=== PATIENT | female | born 1970 | race Caucasian/White ===

== ENCOUNTER 2021-06-20 14:30 | Outpatient (REF) | payer OTHER, SELFPAY ==
[2021-06-20 08:20] LABS: Abs Immature Grans 0.03 10^3/uL (0.0-0.06); Absolute Basophil Count 0.02 10^3/uL (0.0-0.2); Absolute Eosinophil Count 0.08 10^3/uL (0.0-0.7); Absolute Lymphocyte Count 2.37 10^3/uL (1.2-3.4); Absolute Neutrophil Count 3.51 10^3/uL (1.2-6.7); Basophils % 0.3; Eosinophils % 1.2; HCT 41.5 % (36.0-46.0); HGB 13.9 g/dL (11.2-15.7); Immature Grans % 0.5; Lymphocytes % 36.4; MCH 29.1 pg (27.0-33.0); MCHC 33.5 % (32.0-36.0); MPV 9.2 fL (8.0-11.0); Monocytes % 7.7; Neutrophils % 53.9; Nucleated RBC 0 %; Platelet Count 297 10^3/uL (130-400); RBC 4.77 10^6/uL (3.93-5.22); RDW 12.5 % (11.7-14.6); RDW-SD 40.1 fL; WBC 6.51 10^3/uL (4.4-10.8)
[2021-06-20 09:19] LABS: Anion Gap 8.3 mmol/L (3-11); BUN 12 mg/dL (7-18); CO2 27.7 mmol/L (21.0-32.0); CREATININE 0.8 mg/dL (0.55-1.02); Calcium 9.3 mg/dL (8.5-10.1); Calculated LDL 152 mg/dL (<100); Chloride 104 mmol/L (98-107); Cholesterol 226 mg/dL (<200); Glucose 101 mg/dL (74-106); HDL Cholesterol 49 mg/dL (40-60); Potassium 4.3 mmol/L (3.5-5.1); Sodium 140 mmol/L (136-145); Triglyceride 127 mg/dL (<150)
== END 2021-06-20 14:31 | disposition home or self-care (01) ==
LOC: LBO 14:30
PROVIDERS: Visit Provider Family Medicine
DX: Z00.00 Encounter for general adult medical examination without abnormal findings (principal); R03.0 Elevated blood-pressure reading, without diagnosis of hypertension; Z13.220 Encounter for screening for lipoid disorders
CPT/HCPCS: 36415; 80048; 80061; 85025

== ENCOUNTER 2021-09-28 08:51 | Outpatient (CLI) | payer OTHER, SELFPAY ==
[2021-09-28 10:20] LABS: BUN 13 mg/dL (7-18); CREATININE 0.8 mg/dL (0.55-1.02); Calcium 9.5 mg/dL (8.5-10.1); Chloride 100 mmol/L (98-107); Glucose 101 mg/dL (74-106); Potassium 3.4 mmol/L (3.5-5.1); Sodium 138 mmol/L (136-145)
== END 2021-09-28 08:52 | disposition home or self-care (01) ==
LOC: LBO 08:53
PROVIDERS: Visit Provider Family Medicine
DX: I10 Essential (primary) hypertension (principal)
CPT/HCPCS: 36415; 80048

== ENCOUNTER 2021-10-16 16:11 | Outpatient (CLI) | payer OTHER, SELFPAY ==
[2021-10-16 14:27] LABS: Potassium 3.3 mmol/L (3.5-5.1)
== END 2021-10-16 16:12 | disposition home or self-care (01) ==
LOC: LBO 16:11
PROVIDERS: Visit Provider Family Medicine
DX: E87.6 Hypokalemia (principal)
CPT/HCPCS: 36415; 84132

== ENCOUNTER 2021-11-01 15:20 | Outpatient (CLI) | payer OTHER, SELFPAY ==
[2021-11-01 11:46] LABS: Potassium 3.9 mmol/L (3.5-5.1)
== END 2021-11-01 15:21 | disposition home or self-care (01) ==
LOC: LBO 15:21
PROVIDERS: Visit Provider Family Medicine
DX: E87.6 Hypokalemia (principal)
CPT/HCPCS: 36415; 84132

== ENCOUNTER 2022-03-21 15:40 | Emergency (ER) | payer OTHER, SELFPAY ==
[2022-03-21 15:50] VITALS: BP 132/88; PULSE 82; RESP 17; TEMP 36.6; O2SAT 97
--- NOTE | 2022-03-22 17:10 | ED.GENADUL_ITS ---
Discharge Plan Disposition Patient Disposition: HOME Condition: Stable Discharge Details Clinical Impression: Abscess Primary Care Provider: Michelle Delacruz ED Provider: Nayely Hernandez Home Meds and New Rx's Prescriptions: Continued chlorthalidone 15 mg Tablet 7.5 mg PO DAILY lamotrigine 100 mg Tablet 100 mg PO BID potassium chloride 2.5 mEq Tablet PO fluoxetine 60 mg Tablet 60 mg PO DAILY Discharge Instructions Instructions: Abscess (ED) Additional Instructions: Warm compresses Ibuprofen and Tylenol as needed for pain Continue on your antibiotic Yogurt daily while on antibiotic Recheck in 48 hours Return earlier should you have new or worsening Discharge Data Discharge Date/Time-TO BE ENTERED AT DEPARTURE: 03/21/22 17:53 Medical Decision Making Incision and drainage performed Irrigated copiously, probed and deloculated Will continue on like Return precautions discussed and patient expressed understanding Medical Records Medical records reviewed: Yes I reviewed the patient's medical records. Lab Data Lab results reviewed: Yes I reviewed the patient's lab results. HPI General Date/Time Provider Initiated Documentation: 03/21/22 16:01 . HPI Narrative: This 51-year-old female presents with report of rash on back which started Saturday. Started on Keflex has become larger despite antibiotics. States is painful. Denies any known tick bite. Denies fever or chills. Denies history of diabetes. Related Data Home Medications Medication Instructions Recorded Confirmed chlorthalidone 15 mg tablet 7.5 mg PO DAILY 03/21/22 03/21/22 fluoxetine 60 mg tablet 60 mg PO DAILY 03/21/22 03/21/22 lamotrigine 100 mg tablet 100 mg PO BID 03/21/22 03/21/22 potassium chloride 2.5 mEq tablet meq PO 03/21/22 Allergies Allergy/AdvReac Type Severity Reaction Status Date / Time No Known Allergies Allergy Unverified 03/21/22 15:53 General Stated Complaint: Cellulitis LAUREN: 5 Review of Systems All systems reviewed & are unremarkable except as noted in HPI and below PFSH All Active Problems (Updated 03/21/22 @ 17:24 by LB Parr) Abscess (Acute) Social History Smoking/Tobacco Use Status: Never Smoking risk assessment performed?: Yes Alcohol Intake: never Drug use: Never Substance use type: does not use Do you feel safe at home: Yes Do you feel safe in your relationship?: Yes Exam Const General: cooperative, comfortable and no acute distress Skin General skin exam: no rashes or lesions noted Full body images: 1. 3 inchx 1 inch region Neuro General: patient alert and patient oriented x3 Course Vital Signs Vital signs: Vital Signs Temperature 36.6 C 03/21/22 15:50 Pulse 82 03/21/22 15:50 Respiratory Rate 17 03/21/22 15:50 Blood Pressure 132/88 03/21/22 15:50 Pulse Oximetry 97 03/21/22 15:50 Temperature 36.6 C 03/21/22 15:50 Temperature Source Temporal Artery Scan 03/21/22 15:50 Pulse 82 03/21/22 15:50 Respiratory Rate 17 03/21/22 15:50 Respiratory Effort Non-Labored 03/21/22 16:41 Blood Pressure 132/88 03/21/22 15:50 Blood Pressure Position Sitting 03/21/22 15:50 Pulse Oximetry 97 03/21/22 15:50 Oxygen Delivery Method Room Air 03/21/22 15:50 Oxygen Flow Rate 0 03/21/22 15:50 Pain Level 0 03/21/22 15:50 Procedures Abscess I/D Site: Back Side (if applicable): Right Local Anesthetic: Lidocaine 1% Amount of anesthesia used (mL): 5 Technique: Needle Aspiration and Incised with #11 Blade Amount of fluid expressed (mL): 5 Irrigation: Yes Packing used?: None Complications: Pain
== END 2022-03-21 17:53 | disposition home or self-care (01) ==
PROVIDERS: Emergency Provider Physician Assistant; PCP Family Medicine
DX: L02.212 Cutaneous abscess of back [any part, except buttock and flank] (principal)
CPT/HCPCS: 10060

== ENCOUNTER 2022-04-28 13:28 | Outpatient (REF) | payer OTHER, SELFPAY ==
--- OUTSIDE RECORDS SUMMARY | 2022-04-28 13:55 | XMS_ITS | Encounter Summary ---
:1970 Author Organization [facility] [place] [address] Care Team Providers Name Role Phone Sania Lebron APRN Primary Care Provider Reason for Visit Reason Comments Specialty Pharmacy Review Encounter Details Date Type Department Care Team Description 06/28/2020 Specialty Pharmacy Pharmacy at [facility] [place] [phone] Social History Tobacco Use Types Packs/Day Years Used Date Never Smoker Smokeless Tobacco: Never Used Sex Assigned at Date Recorded Not on file documented as of this encounter Plan of Treatment Not on filedocumented as of this encounter Visit Diagnoses Not on filedocumented in this encounter Care Teams Rink Rat Relationship Specialty Start Date End Date Sania Lebron APRN PCP - General 12/08/12 07/19/21 [address] [place] [address] documented as of this encounter
--- OUTSIDE RECORDS SUMMARY | 2022-04-28 13:55 | XMS_ITS | Encounter Summary ---
:1970 Author Organization [facility] [place] [address] Care Team Providers Name Role Phone Sania Lebron APRN Primary Care Provider Reason for Visit Reason Onset Date Comments Medication Refill 09/27/2020 Encounter Details Date Type Department Care Team Description 09/27/2020 Refill Allergy at [facility] [place] Raegan Bailey, Urticarial vasculitis [facility] [place] [address] [facility] [phone] ALLERGY DEPT [place], [place] [address] (Wo rk) Social History Tobacco Use Types Packs/Day Years Used Date Never Smoker Smokeless Tobacco: Never Used Sex Assigned at Date Recorded Not on file documented as of this encounter Miscellaneous Notes Telephone Encounter - José Manuel Chapa RN - 09/27/2020 8:35 AM EST Patient last prescription 06/05, with 3 refills in need of new prescription documented in this encounter Plan of Treatment Not on filedocumented as of this encounter Visit Diagnoses Diagnosis Urticarial vasculitis Hypersensitivity angiitis, unspecified documented in this encounter Care Teams Talent Sourcing Specialist Relationship Specialty Start Date End Date Foristell, Sania, SMALL PIECE CUTTER PCP - General 12/08/12 07/19/21 [address] [place], [place] [id number] documented as of this encounter
--- OUTSIDE RECORDS SUMMARY | 2022-04-28 13:55 | XMS_ITS | Encounter Summary ---
:1970 Author Organization [facility] [place] [address] Care Team Providers Name Role Phone Sania Lebron APRN Primary Care Provider Reason for Visit Reason Comments Specialty Pharmacy Review Encounter Details Date Type Department Care Team Description 08/02/2020 Specialty Pharmacy Pharmacy at [facility] [place] [phone] Social History Tobacco Use Types Packs/Day Years Used Date Never Smoker Smokeless Tobacco: Never Used Sex Assigned at Date Recorded Not on file documented as of this encounter Plan of Treatment Not on filedocumented as of this encounter Visit Diagnoses Not on filedocumented in this encounter Care Teams Edge Plugger Relationship Specialty Start Date End Date Sania Lebron APRN PCP - General 12/08/12 07/19/21 [address] [place] [address] documented as of this encounter
--- OUTSIDE RECORDS SUMMARY | 2022-04-28 13:55 | XMS_ITS | Encounter Summary ---
:1970 Author Organization [facility] [place] [address] Care Team Providers Name Role Phone Sania Lebron APRN Primary Care Provider Encounter Details Date Type Department Care Team Description 08/25/2020 Specialty Pharmacy Pharmacy at [facility] Marva Simpson, [facility] [place] [address] Social History Tobacco Use Types Packs/Day Years Used Date Never Smoker Smokeless Tobacco: Never Used Sex Assigned at Date Recorded Not on file documented as of this encounter Progress Notes Marva Feliz RPH - 08/25/2020 2:[address] Mariaelena Bailey, patient's hives are well-controlled on current therapies and patient does not wish to pursue Xolair at this time. Encounter to remove from medication list. Marva Feliz RPH 08/25/2020 2:10 PM documented in this encounter Plan of Treatment Not on filedocumented as of this encounter Visit Diagnoses Not on filedocumented in this encounter Care Teams Truck Mechanic Apprentice Relationship Specialty Start Date End Date Sania Lebron APRN PCP - General 12/08/12 07/19/21 [address] [place] [address] documented as of this encounter
--- OUTSIDE RECORDS SUMMARY | 2022-04-28 13:55 | XMS_ITS | Encounter Summary ---
:1970 Author Organization [facility] [place] [address] Care Team Providers Name Role Phone Sania Lebron APRN Primary Care Provider Encounter Details Date Type Department Care Team Description 07/13/2020 Hospital Encounter Mammography at [facility] Jef Lebron of left breast [facility] [address] [place] [address] [phone] Social History Tobacco Use Types Packs/Day Years Used Date Never Smoker Smokeless Tobacco: Never Used Sex Assigned at Date Recorded Not on file documented as of this encounter Medications at Time of Discharge Medication Sig Dispensed Refills Start Date End Date hydrOXYzine (Atarax) 10 Take 1 tablet by 30 tablet 2 2019 mg TabletIndications: mouth 3 times daily Chronic idiopathic as needed for urticaria Itching. hydrOXYzine (Atarax) 10 Take 10 mg by mouth 0 mg Tablet every 6 hours as needed for Itching. clonazePAM (KLONOPIN) Take 0.5 mg by mouth 0 0.5 mg Tablet 2 times daily as needed for Anxiety. ethinyl Take by mouth. 0 estradiol/drospirenone (OCELLA ORAL) omalizumab (Xolair) Inject 2 mLs 2 Syringe 5 06/30/202006/2020 (150 mg/mL) subcutaneously every SyringeIndications: 28 days. Chronic idiopathic urticaria FLUoxetine 60 mg Tablet TAKE ONE TABLET BY 0 03/1612/01/2020 MOUTH EVERY DAY triamcinolone (KENALOG) APPLY TO AFFECTED 0 12/2212/01/2020 0.1 % Ointment AREA S NEEDED TWO TIMES A DAY FOR 14 DAYS colchicine (Colcrys) Take 1 tablet by 60 tablet 3 0 09/27/2020 0.6 mg mouth 2 times daily. TabletIndications: Urticarial vasculitis doxepin (Sinequan) 10 Take 1 capsule by 30 capsule 0 020 12/01/2020 mg Capsule mouth nightly. levocetirizine (XYZAL) Take by mouth. 0 12/01/2020 5 mg Tablet famotidine (Pepcid) 20 Take 1 tablet by 30 tablet 12 020 12/01/2020 mg TabletIndications: mouth 2 times daily. Chronic idiopathic urticaria montelukast (Singulair) Take 1 tablet by 30 tablet 12 201912/01/2020 10 mg mouth nightly. TabletIndications: Chronic idiopathic urticaria, Angioedema, subsequent encounter diphenhydrAMINE Take 25 mg by mouth 0 12/01/2020 (Benadryl) 25 mg every 6 hours as Capsule needed for Itching. FLUoxetine (PROZAC) 40 Take 60 mg by mouth 0 12/01/2020 mg Capsule daily. documented as of this encounter Plan of Treatment Not on filedocumented as of this encounter Procedures Procedure Name Priority Date/Time Associated Diagnosis Comme nts MAMMO BREAST US Routine 07/13/2020 3:10 PM Mass of left breast Results for this LIMITED LEFT EDT procedure are i n the results section. documented in this encounter Results US Breast Limited Left (07/13/2020 3:10 PM EDT) Anatomical Region Laterality Modality Breast Left Mammography Specimen (Source) Anatomical Location Collection Method / Collectio n Time Received Time / Laterality Volume Impressions 07/13/2020 6:00 PM EDT Hyperechoic region on the left breast deep to the inflamed dermal lesion, consistent with infectious/inflammatory breast tissue. No fluid collection. RECOMMENDATION: Clinical follow-up as ne eded. Annual screening mammogram. BI-RADS Category 2: Benign Findings * ??Regular screening mammograms startin g between age 40 and 50 reduces the risk of from breast cancer. * ??All screening tests have both risks and benefits. These risks and benefits should be assessed for each individual p atient through discussion with their provider to determine their preferred br east cancer screening schedule. * ??Women should report any breast norman es to a health care provider right away. * ??Some women, because of their family history, a genetic tendency, or other factors, should be screened with annual breast MRI as well as with mammograms. (The number of women who fall into this category is very small). Patients and health care providers should discuss the history of each patient to decide if earlier screening and/or breast MRI are appropriate. * ??Screening should continue as long as a woman is in good health and is expected to live 10 years or longer. * ??Screening mammography may not detect 10-15% of breast cancers. I have personally reviewed the image(s) and the resident's interpretation and agree with the findings, Rena valadez MD at 07/13/2020 6:00 PM Thank you for letting us participate in the care of this patient. For questions regarding this report, please contact e number below. ? Narrative 07/13/2020 6:00 PM EDT DIAGNOSTIC MAMMOGRAPHY AND ULTRASOUND OF THE LEFT BREAST CLINICAL HISTORY: 49-year-old female wit h a left breast lump. TECHNIQUE AND VIEWS OBTAINED: 2D digitally acquired spot CC, CC, and M LO views were obtained of left breast. 3D tomosynthesis images were obtained in addition to 2D images. Computer Assisted Detection was used. COMPARISONS: Mammogram dated 05/13/2020 FINDINGS MAMMOGRAPHY: There is a partially imaged indistinct 0 .8 cm high density mass at 8:00, 11 cm from the nipple. FINDINGS ULTRASOUND: A targeted high-resolution ultrasound of the left breast was obtained. There is an elongated oval hyperechoic parallel m ass with indistinct margins with a thin duct at the most medial aspect which is continuous with the inflamed dermal lesion. The mass measures approximately 4.0 x 2.2 cm. This palpable lesion corresponds to the mammographic finding. Sania Lebron APRN IMG MAMMO ORDERABLES documented in this encounter Visit Diagnoses Diagnosis Mass of left breast Lump or mass in breast documented in this encounter Care Teams Dross Skimmer Relationship Specialty Start Date End Date Sania Lebron APRN PCP - General 12/08/12 07/19/21 [address] [place] [address] documented as of this encounter
--- OUTSIDE RECORDS SUMMARY | 2022-04-28 13:55 | XMS_ITS | Encounter Summary ---
:1970 Author Organization [facility] [place] [address] Care Team Providers Name Role Phone Sania Lebron APRN Primary Care Provider Reason for Visit Reason Comments Follow-up Encounter Details Date Type Department Care Team Description 12/01/2020 Office Visit [place] [facility] Raegan Santamaria Urticarial vasculitis (Prima ry Dx); [facility] MD Agus Encounter [place] [address] ALLERGY DEPT [phone] [place], [place] [address] Social History Tobacco Use Types Packs/Day Years Used Date Never Smoker Smokeless Tobacco: Never Used Sex Assigned at Date Recorded Not on file documented as of this encounter Last Filed Vital Signs Vital Sign Reading Time Taken Comments Blood Pressure 150/89 12/01/2020 9:18 AM EDT Pulse 63 12/01/2020 9:18 AM EDT Temperature - - Respiratory Rate - - Oxygen Saturation 99% 12/01/2020 9:18 AM EDT Inhaled Oxygen Concentration - - Weight - - Height - - Body Mass Index - - documented in this encounter Progress Notes Raegan Santamaria MD - 12/01/2020 9:30 AM EDT Images from the original note were not included. [facility] Section of Allergy and Clinical Immunology Date of Service: 12/01/20 Primary Care Provider: Sania Lebron APRN Patient Age: 50 y.o. 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 She is doing well on colchicine 0.6 mg twice daily. Since her last visit, she has successfully tapered off levocetirizine and famotidine. She feels more clear off antihistamines. She denies any nausea or diarrhea. She reports as long as she takes colchicine with food, she does not have GI symptoms. Prior hepatic panel has been within normal. She stopped montelukast due to elevated triglyceride levels. She is no longer interested in starting omalizumab. She received her first Moderna vaccine on September 21 and only had a sore arm. After her 2nd Moderna vaccine on October 21, she developed knee pain, low-grade fever about 12 hours after injection and thesymptoms resolved on their own by the next day. Outpatient Medications Marked as Taking for the 12/01/20 encounter (Office Visit) with Raegan Santamaria MD Medication Sig Dispense Refill ??? lamoTRIgine (LaMICtal) 25 mg Tablet TAKE ONE TABLET BY MOUTH EVERY MORNING AND TWO TABLETS AT BEDTIME ??? FLUoxetine (PROzac) 40 mg Capsule Take 40 mg by mouth 2 times daily (after meals). ??? colchicine (Colcrys) 0.6 mg Tablet Take 1 tablet by mouth 2 times daily. 60 tablet 3 ??? clonazePAM (KLONOPIN) 0.5 mg Tablet Take 0.5 mg by mouth 2 times daily as needed for Anxiety. ??? ethinyl estradiol/drospirenone (OCELLA ORAL) Take by mouth. Allergies Allergen Reactions ??? Perphenazine CIS - breathing difficulty Family History Problem Relation Age of Onset ??? Breast Cancer Mother Her sister has anaphylaxis due to bee stings. Social History Tobacco Use ??? Smoking status: Never Smoker ??? Smokeless tobacco: Never Used Substance Use Topics ??? Alcohol use: Not on file ??? Drug use: Not on file Status: Environmental History: 2 dogs +Pellet stove How water baseboard heat +chickens Objective: BP 150/89 Pulse 63 SpO2 99% No flowsheet data found. Wt Readings from Last 3 Encounters: 08/22/20 90.7 kg (200 lb) 06/28/20 90.7 kg (199 lb 15.3 oz) 06/09/20 90.7 kg (200 lb) Normal Except General: - No apparent distress Eyes: - Conjunctivae without injection; - No eyelid swelling ENT: - No erythema of the tympanic membranes - Normal external ear canals - Oropharynx well hydrated without lesions or exudates; Neck: - Symmetrical, no masses, trachea midline; Resp: - Unlabored breathing with symmetrical and equal bilateral expansion; - CTA w/o crackles, wheezing, or rhonchi; CV: - Regular rate and rhythm - No pedal swelling GI: - Abdomen soft - Bowel sounds present Lymph: - No significant cervical, supraclavicular or infraclavicular lymphadenopathy Musculoskeletal: - Nl gait and station Extremities: - No clubbing, cyanosis, or edema Skin: No urticaria or angioedema Neuro: - Nl gait and station Psych: - Nl and age appropriate mood and affect - Judgement and insight intact Skin biopsy result in March 2020: This biopsy includes skin with epidermis and dermis. Direct IF studies of this skin biopsy specimen reveal subtle superficial perivascular immunoreactivity of C3, fibrinogen and the immunoglobulins tested, distinct from the immunoreactivity seen in the negative control slide from the same preparation. DIAGNOSIS A - Left leg, skin punch biopsy: - Superficial perivascular inflammation with neutrophils, eosinophils, extravasated erythrocytes and rare focal karyorrhectic debris, suspicious for urticarial vasculitis (see discussion) B - Left leg, skin punch biopsy: - Subtle superficial perivascular immunoreactivity (see discussion and addendum for details) Electronically signed by: Nathaniel Villasenor MD Verified: 03/28/2020 Dermatopathologist Performed at: -[facility] Dept. [place]ology, [place], [place] DISCUSSION A, B - Overall, the findings are somewhat subtle, but do cause suspicion for a subtle or early case of urticarial vasculitis. The findings are not at all those of a developed leukocytoclastic vasculitis (LCV). But, regarding urticarial vasculitis compared with typical LCV, the histological findings tend to be subtle and are easily overlooked Labs: Component Latest Ref Rng & Units 03/23/2020 C4 Complement 10 - 40 mg/dL 32 C3 Complement 90 - 180 mg/dL 161 Complement C1q 12 - 22 mg/dL 20 CHERYLE Neg Neg CRP <=4.9 mg/L 7.4 (H) Sed Rate 2 - 37 mm/hr 17 Component Latest Ref Rng & Units 08/22/2020 06/28/2020 Total Protein 6.1 - 8.0 gm/dL 6.7 6.6 Albumin 3.2 - 5.2 gm/dL 4.3 4.1 AST 0 - 30 unit/L 9 16 ALT 0 - 30 unit/L 10 11 Alk Phos 35 - 105 unit/L 67 59 Total Bilirubin 0.2 - 1.3 mg/dL 0.2 Not Perf Bili, Direct 0.0 - 0.3 mg/dL 0.1 Not Perf Assessment and Plan: 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 Sheis doing well on colchicine 0.6 mg twice daily. I recommend she continue colchicine 0.6 mg twice daily at this time. If hives return, she will let me know. In future, if she is doing well, consider tapering to once a day. She has normal baseline AST/ALT. Plan to recheck hepatic panel today. All questions were answered, and patient expressed understanding of the plan. If I can provide any further assistance, please do not hesitate to contact me. Return for follow-up appointment in 3 months, sooner if needed. Raegan Bailey MD [employer], Allergy [place] [address] [email or web address] Addendum: hepatic panel within normal. Component Latest Ref Rng & Units 12/01/2020 Total Protein 6.1 - 8.0 gm/dL 7.0 Albumin 3.2 - 5.2 gm/dL 4.4 AST 0 - 30 unit/L 18 ALT 0 - 30 unit/L 17 Alk Phos 35 - 105 unit/L 59 Total Bilirubin 0.2 - 1.3 mg/dL 0.3 Bili, Direct 0.0 - 0.3 mg/dL 0.1 documented in this encounter Plan of Treatment Not on filedocumented as of this encounter Procedures Procedure Name Priority Date/Time Associated Diagnosis Comme nts HC VENIPUNCTURE Routine 12/01/2020 10:15 AM Encounter for Resu lts for this EDT medication monit oring procedure are in Urticarial vasculitis the re sults section. documented in this encounter Results Hepatic Function Panel (12/01/2020 10:15 AM EDT) P athologist Signature Total Protein 7.0 6.1 - 8.0 [place] [facility] gm/dL [facility] Albumin 4.4 3.2 - 5.2 [place] gm/dL [facility] AST 18 0 - 30 [facility] unit/L [facility] ALT 17 0 - 30 [facility] unit/L [facility] Alk Phos 59 35 - 105 [facility]L [facility] Total 0.3 0.2 - 1.3 [place] Bilirubin mg/dL [facility] Bili, Direct 0.1 0.0 - 0.3 [facility] mg/dL [facility] Specimen Anatomical Collection Method Collection Time Receive d Time (Source) Location / / Volume Laterality Blood specimen 12/01/2020 10:15 1 (specimen) AM EDT 10:31 AM EDT Resulting Agency Comment Spec In Lab Raegan Bailey MD CHEMISTRY ORDERABLES Performing Organization Address City/State/[place] [address] documented in this encounter Visit Diagnoses Diagnosis Urticarial vasculitis - Primary Hypersensitivity angiitis, unspecified Encounter for medication monitoring Encounter for therapeutic drug monitorin g documented in this encounter Care Teams Rail Car Repair Carman Relationship Specialty Start Date End Date Sania Lebron APRN PCP - General 12/08/12 07/19/21 [address] [place] [address] documented as of this encounter
--- OUTSIDE RECORDS SUMMARY | 2022-04-28 13:55 | XMS_ITS | Encounter Summary ---
:1970 Author Organization [facility] [address] Care Team Providers Name Role Phone Sania Lebron APRN Primary Care Provider Encounter Details Date Type Department Care Team Description 07/06/2020 Notes Only Allergy at [facility] [place] [address] Social History Tobacco Use Types Packs/Day Years Used Date Never Smoker Smokeless Tobacco: Never Used Sex Assigned at Date Recorded Not on file documented as of this encounter Progress Notes Wanda Grimadlo RN - 07/06/2020 4:53 PM EDT Patient called to inquire about Xolair PA status. Ryan Grubbs from Specialty Pharmacy, they need to obtain an Urticaria Activity Score (UAS) from Dr. Bailey before proceeding with PA. documented in this encounter Plan of Treatment Not on filedocumented as of this encounter Visit Diagnoses Not on filedocumented in this encounter Care Teams Envelope Maker Relationship Specialty Start Date End Date Sania Lebron APRN PCP - General 12/08/12 07/19/21 [address] [place] [address] documented as of this encounter
--- OUTSIDE RECORDS SUMMARY | 2022-04-28 13:55 | XMS_ITS | Encounter Summary ---
:1970 Author Organization [facility] [place] [address] Care Team Providers Name Role Phone Michelle Espinoza MD Primary Care Provider Reason for Referral Diagnostic Test (Routine) - Closed Specialty Diagnoses / Procedures Referred By Contact Refer red To Contact Radiology Diagnoses Encounter for screening mammogram for breast cancer Michelle Espinoza MD [facility] Rad Mammography Procedures Mammo Screening Cad and Artur Bilateral [address] [place] [address] [place] [address] Phone: Referral ID Status Reason Start Date Expiration Date Visits V isits Requested Authorized [id number] Closed Specialty 05/11/2021 11/11/2022 1 1 Service Requested Reason for Visit Diagnostic Test (Routine) - Closed Specialty Diagnoses / Procedures Referred By Contact Refer red To Contact Radiology Diagnoses Encounter for screening mammogram for breast cancer Michelle Espinoza MD [facility] Rad Mammography Procedures Mammo Screening Cad and Artur Bilateral [address] [place] [id number] [place] [address] Phone: Referral ID Status Reason Start Date Expiration Date Visits V isits Requested Authorized [id number] Closed Specialty 05/11/2021 11/11/2022 1 1 Service Requested Encounter Details Date Type Department Care Team Description 07/20/2021 Hospital Encounter Mammography/DXA at Michelle Espinoza, Encounter for [facility] MD screening mammogram [address] cancer [address] [address] [phone] Social History Tobacco Use Types Packs/Day Years Used Date Never Smoker Smokeless Tobacco: Never Used Sex Assigned at Date Recorded Not on file documented as of this encounter Medications at Time of Discharge Medication Sig Dispensed Refills Start Date End Date colchicine (Colcrys) 0.6 Take 1 tablet by 60 tablet 3 02/06 mg TabletIndications: mouth 2 times daily. Urticarial vasculitis lamoTRIgine (LaMICtal) 25 TAKE ONE TABLET BY 0 mg Tablet MOUTH EVERY MORNING AND TWO TABLETS AT BEDTIME FLUoxetine (PROzac) 40 mg Take 40 mg by mouth 2 0 Capsule times daily (after meals). hydrOXYzine (Atarax) 10 mg Take 1 tablet by 30 tablet 2 TabletIndications: Chronic mouth 3 times daily idiopathic urticaria as needed for Itching. hydrOXYzine (Atarax) 10 mg Take 10 mg by mouth 0 Tablet every 6 hours as needed for Itching. clonazePAM (KLONOPIN) 0.5 Take 0.5 mg by mouth 0 mg Tablet 2 times daily as needed for Anxiety. ethinyl Take by mouth. 0 estradiol/drospirenone (OCELLA ORAL) documented as of this encounter Plan of Treatment Not on filedocumented as of this encounter Procedures Procedure Name Priority Date/Time Associated Diagnosis Comme nts MAMMO SCREENING CAD Routine 07/20/2021 9:31 AM Encounter for R esults for this AND ARTUR BILATERAL EDT screening mammogram pr ocedure are in for breast cancer the result s section. documented in this encounter Results Mammo Screening Cad and Artur Bilateral (07/20/2021 9:31 AM EDT) Anatomical Region Laterality Modality Breast Bilateral Mammography Specimen (Source) Anatomical Location Collection Method / Collectio n Time Received Time / Laterality Volume Narrative 07/20/2021 11:29 AM EDT BILATERAL MAMMOGRAPHY REASON FOR EXAM: Screening TECHNIQUE: CC and MLO views were obtaine d of each breast using standard 2-D mammography as well as 3-D tomosynth esis. Computer aided detection was used. This is compared with prior images . FINDINGS: There are scattered areas of f ibroglandular density. There are no suspicious microcalcifications, jean s, or areas of distortion. The pattern is stable. CONCLUSION: No mammographic evidence of malignancy. RECOMMENDATION: Regular screening mammograms starting be tween age 40 and 50 reduces the risk of from breast cancer. All screening tests have both risks and benefits. These risks and benefits should be assessed for each individual p atient through discussion with their provider to determine their prefer red breast cancer screening schedule. Women should report any breast changes t o a health care provider right away. Some women, because of their family hist ory, a genetic tendency, or other factors, should be screened with annual breast MRI as well as with mammograms. (The number of women who fal l into this category is very small). Patients and health care provide rs should discuss each patient? s history to decide if earlier screening a nd/or breast MRI are appropriate. Screening should continue as long as a w lenin is in good health and is expected to live 10 years or longer. Screening mammography may not detect 10- 15% of breast cancers. A result letter has been sent to this pa [facility]renice [facility]. BIRADS CATEGORY 1: NEGATIVE Electronically signed by: TOMAS PHILIP MD Michelle Espinoza MD IMG MAMMO ORDERABLES documented in this encounter Visit Diagnoses Diagnosis Encounter for screening mammogram for br east cancer documented in this encounter Care Teams First Cook Relationship Specialty Start Date End Date Michelle Espinoza MD PCP - General Family Medicine 07/20/[address] [place] [address] documented as of this encounter
--- OUTSIDE RECORDS SUMMARY | 2022-04-28 13:55 | XMS_ITS | Encounter Summary ---
:1970 Author Organization [facility] [place] [address] Care Team Providers Name Role Phone Sania Lebron APRN Primary Care Provider Encounter Details Date Type Department Care Team Description 07/13/2020 Hospital Encounter Mammography at [facility] Jef Lebron of left breast [facility] [address] [place] [address] [phone] Social History Tobacco Use Types Packs/Day Years [...] encounter Procedures Procedure Name Priority Date/Time Associated Comments Diagnosis MAMMO DIAGNOSTIC CAD Routine 07/13/2020 3:00 PM Mass of left b reast Results for this AND ARTUR LEFT EDT procedure are in the results section. documented in this encounter Results Mammo Diagnostic Cad and Artur Left (07/13/2020 3:00 PM EDT) Anatomical Region Laterality Modality Breast [...] report, please contact e number below. ? Electronically signed by: Rena franz MD, [facility] ([phone]), at 07/13/2020 6:00 PM Narrative 07/13/2020 6:00 PM EDT DIAGNOSTIC MAMMOGRAPHY [...] breast documented in this encounter Care Teams Gluing Machine Operator Automatic Relationship Specialty Start Date End Date Sania Lerbon APRN PCP - General 12/08/12 07/19/21 [address] [place] [address] documented as of this encounter
--- OUTSIDE RECORDS SUMMARY | 2022-04-28 13:55 | XMS_ITS | Encounter Summary ---
:1970 Author Organization [facility] [address] Care Team Providers Name Role Phone Sania Lebron APRN Primary Care Provider Encounter Details Date Type Department Care Team Description 08/22/2020 Laboratory Appointment Lab 3L [facility] Medication monitoring encounter; [facility] [place] [address] Social History Tobacco Use Types Packs/Day Years Used Date Never Smoker Smokeless Tobacco: Never Used Sex Assigned at Date Recorded Not on file documented as of this encounter Plan of Treatment Not on filedocumented as of this encounter Procedures Procedure Name Priority Date/Time Associated Diagnosis Comme nts HC VENIPUNCTURE Routine 08/22/2020 3:47 PM Medication monitori ng Results for this EST encounter procedure are in Urticarial vasculitis the re sults section. documented in this encounter Results Hepatic Function Panel (08/22/2020 3:47 PM EST) P athologist Signature Total Protein 6.7 6.1 - 8.0 Associated ContentDEBORAH gm/dL [facility] Albumin 4.3 3.2 - 5.2 Associated ContentDEBORAH gm/dL [facility] AST 9 0 - 30 [place] unit/L [facility] ALT 10 0 - 30 [place] unit/L [facility] Alk Phos 67 35 - 105 [employer] unit/L [facility] Total 0.2 0.2 - 1.3 [facility] Bilirubin mg/dL [facility] Bili, Direct 0.1 0.0 - 0.3 [facility] mg/dL [facility] Specimen Anatomical Collection Method Collection Time Receive d Time (Source) Location / / Volume Laterality Blood specimen 08/22/2020 3:47 PM 020 3:58 (specimen) EST PM EST Resulting Agency Comment Spec In Lab Raegan Bailey MD CHEMISTRY ORDERABLES Performing Organization Address City/State/[place] [address] documented in this encounter Visit Diagnoses Diagnosis Medication monitoring encounter Encounter for therapeutic drug monitorin g Urticarial vasculitis Hypersensitivity angiitis, unspecified documented in this encounter Care Teams Chain Pegger Relationship Specialty Start Date End Date Sania Lebron APRN PCP - General 12/08/12 07/19/21 [address] [place] [address] documented as of this encounter
--- OUTSIDE RECORDS SUMMARY | 2022-04-28 13:55 | XMS_ITS | Encounter Summary ---
:1970 Author Organization [facility] [place] [address] Care Team Providers Name Role Phone Vi, Sania BARRAGAN Primary Care Provider Reason for Visit Reason Onset Date Comments Medication Refill 02/05/2021 Encounter Details Date Type Department Care Team Description 02/05/2021 Refill Allergy at [facility] [place] Raegan Bailey, Urticarial vasculitis [facility] [place] [address] [facility] [phone] ALLERGY DEPT [place], [place] [address] (Wo rk) Social History Tobacco Use Types Packs/Day Years Used Date Never Smoker Smokeless Tobacco: Never Used Sex Assigned at Date Recorded Not on file documented as of this encounter Miscellaneous Notes Telephone Encounter - Mary Mckinley RN - 02/06/2021 3:34 PM EDT Request for: Requested Prescriptions Pending Prescriptions Disp Refills ??? colchicine (Colcrys) 0.6 mg Tablet 60 tablet 3 Sig: Take 1 tablet by mouth 2 times daily. Last visit: 12/01/20 Next visit: No future appointments. documented in this encounter Plan of Treatment Not on filedocumented as of this encounter Visit Diagnoses Diagnosis Urticarial vasculitis Hypersensitivity angiitis, unspecified documented in this encounter Care Teams Cloth Shearing Supervisor Relationship Specialty Start Date End Date Sania Lebron APRN PCP - General 12/08/12 07/19/21 [address] [place] [address] documented as of this encounter
--- OUTSIDE RECORDS SUMMARY | 2022-04-28 13:55 | XMS_ITS | Clinical Summary ---
:1970 Author Organization [facility] [place] [address] Care Team Providers Name Role Phone Michelle Espinoza MD Primary Care Provider Allergies Active Allergy Reactions Severity Noted Date Comments Perphenazine CIS - breathing difficulty Medications Medication Sig Dispensed Refills Start Date End Date Status clonazePAM (KLONOPIN) Take 0.5 mg by 0 Active 0.5 mg Tablet mouth 2 times daily as needed for Anxiety. ethinyl Take by mouth. 0 Activ e estradiol/drospirenone (OCELLA ORAL) hydrOXYzine (Atarax) 10 Take 10 mg by 0 Active mg Tablet mouth every 6 hours as needed for Itching. hydrOXYzine (Atarax) 10 Take 1 tablet by 30 tablet 2 0 Active mg TabletIndications: mouth 3 times Chronic idiopathic daily as needed urticaria for Itching. Additional Information Patient not taking. Reported on 12/01/2020 lamoTRIgine (LaMICtal) 25 mg TAKE ONE TABLET BY MOUTH 0 11/06/2020 Active Tablet EVERY MORNING AND TWO TABLETS AT BEDTIME FLUoxetine (PROzac) 40 mg Take 40 mg by mouth 2 0 Active Capsule times daily (after meals). colchicine (Colcrys) 0.6 mg Take 1 tablet by mouth 2 60 tablet 3 02/06/2021 Active TabletIndications: Urticarial times daily. vasculitis Immunizations Name Administration Dates Next Due Influenza PF, Split 06/15/2012 Influenza Vaccine, Whole 06/25/2010 Family History Medical History Relation Comments Breast Cancer Mother Relation Status Comments Mother Social History Tobacco Use Types Packs/Day Years Used Date Never Smoker Smokeless Tobacco: Never Used Sex Assigned at Date Recorded Not on file Last Filed Vital Signs Vital Sign Reading Time Taken Comments Blood Pressure 150/89 12/01/2020 9:18 AM EDT Pulse 63 12/01/2020 9:18 AM EDT Temperature 37.1 ??C (98.8 ??F) 06/10/2019 9:56 AM EDT Respiratory Rate 16 06/10/2019 9:56 AM EDT Oxygen Saturation 99% 12/01/2020 9:18 AM EDT Inhaled Oxygen Concentration - - Weight 90.7 kg (200 lb) 08/22/2020 3:09 PM EST Height 165.1 cm (5' 5) 03/10/2020 2:30 PM EDT Body Mass Index 33.28 03/10/2020 2:30 PM EDT Plan of Treatment Health Maintenance Due Date Last Done Comments HIV screen 1990 Hepatitis C Screening 1990 Lipid Screening 1990 Tdap adult 11/21/1991 Tetanus vaccine 11/21/1991 Breast Cancer Share Decision Needed 2012 HPV test 11/14/2016 11/15/2011 PAP Smear 11/14/2016 11/15/2011 Colonoscopy 2017 Covid-19 Vaccine (3 - Booster for Moderna 03/18/20212020, 09/21/2020 series) Influenza (Flu) vaccine (1 of 1 - 05/17/2022 06/15/2012, Influenza standard series) Diabetes Screening (HgbA1C or Glucose) 03/23/2023 0 Insurance Payer Benefit Plan / Subscriber ID Effective Dates Phone Addre ss Type Group HEALTH PLANS HEALTH PLANS [id number] 2021-Mitra [phone] [id number] [place] [address] Care Teams Ibm Mainframe Systems Programmer Relationship Specialty Start Date End Date Hansel-Michelle Yang MD PCP - General Family Medicine 07/20/[address] [address]
--- OUTSIDE RECORDS SUMMARY | 2022-04-28 13:55 | XMS_ITS | Encounter Summary ---
:1970 Author Organization [facility] [place] [address] Care Team Providers Name Role Phone Sania Lebron APRN Primary Care Provider Encounter Details Date Type Department Care Team Description 08/22/2020 Office Visit Allergy at [facility] Raegan Santamaria Urticarial vasculitis (Prima ry Dx); [facility] MD Agus Medication [place] [address] ALLERGY DEPT [phone] [place], [place] [address] Social History Tobacco Use Types Packs/Day Years Used Date Never Smoker Smokeless Tobacco: Never Used Sex Assigned at Date Recorded Not on file documented as of this encounter Last Filed Vital Signs Vital Sign Reading Time Taken Comments Blood Pressure 119/80 08/22/2020 3:09 PM EST Pulse 76 08/22/2020 3:09 PM EST Temperature - - Respiratory Rate - - Oxygen Saturation 100% 08/22/2020 3:09 PM EST Inhaled Oxygen Concentration - - Weight 90.7 kg (200 lb) 08/22/2020 3:09 PM EST Height - - Body Mass Index 33.28 03/10/2020 2:30 PM EDT documented in this encounter Progress Notes Raegan Santamaria MD - 08/22/2020 3:30 PM EST Images from the original note were not included. [facility] Section of Allergy and Clinical Immunology Date of Service: 08/22/20 Primary Care Provider: Sania Lebron APRN Patient Age: 49 y.o. 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 She reports that for the last 3-4 weeks, she has barely had any urticaria. I initially requested aUAS7 (patient reported outcome), which was needed for a prior authorization for treatment of chronicidiopathic urticaria. However, she has been essentially hive-free this past month. She was feeling so well, she started to taper levocetirizine, but hives started to reappear over a few days. She is currently on levocetirizine 10 mg twice daily, famotidine 20 mg twice daily, colchicine 0.6 mg twice daily. If she takes the colchicine with food, she does OK. She has noticed if she takes colchicine on an empty stomach, she then develops diarrhea. She stopped montelukast due to elevated triglyceride levels. She believes that colchicine is why she is doing better. She is no longer interested in starting omalizumab. Outpatient Medications Marked as Taking for the 08/22/20 encounter (Office Visit) with Raegan Santamaria MD Medication Sig Dispense Refill ??? topiramate (TOPAMAX) 50 mg Tablet ??? omalizumab (Xolair) (150 mg/mL) Syringe Inject 2 mLs subcutaneously every 28 days. 2 Syringe 5 ??? hydrOXYzine (Atarax) 10 mg Tablet Take 1 tablet by mouth 3 times daily as needed for Itching. 30tablet 2 ??? triamcinolone (KENALOG) 0.1 % Ointment APPLY TO AFFECTED AREA S NEEDED TWO TIMES A DAY FOR 14DAYS ??? colchicine (Colcrys) 0.6 mg Tablet Take 1 tablet by mouth 2 times daily. 60 tablet 3 ??? levocetirizine (XYZAL) 5 mg Tablet Take by mouth. ??? famotidine (Pepcid) 20 mg Tablet Take 1 tablet by mouth 2 times daily. 30 tablet 12 ??? diphenhydrAMINE (Benadryl) 25 mg Capsule Take 25 mg by mouth every 6 hours as needed for Itching. ??? clonazePAM (KLONOPIN) 0.5 mg Tablet Take [...] ??? Drug use: Not on file Status: Review of Systems: 10 point review of systems reviewed and negative except as above. Environmental History: 2 dogs +Pellet stove How water baseboard heat +chickens Objective: BP 119/80 Pulse 76 Wt 90.7 kg (200 lb) SpO2 100% BMI 33.28 kg/m?? No flowsheet data found. Wt Readings from [...] - No clubbing, cyanosis, or edema Skin: urticarial lesions throughout legs and chest Neuro: - Nl gait and station Psych: [...] Villasenor MD Verified: 03/28/2020 Dermatopathologist Performed at: -[facility] Dept. 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 She is doing well on colchicine 0.6 mg twice daily, she has had almost no hives for the past month. I recommend she continue colchicine 0.6 mg twice daily. She has normal baseline AST/ALT. Plan to recheck hepatic panel today. I recommend she stay on levocetirizine and famotidine. All questions were answered, and patient expressed understanding of the plan. If I can provide any further assistance, please do not hesitate to contact me. Return for follow-up appointment in 3 months, sooner if needed. Raegan Bailey MD [employer], [place]ergy [place] [address] [email or web address] Addendum: Component Latest Ref Rng & Units 08/22/2020 Total Protein 6.1 - 8.0 gm/dL 6.7 Albumin 3.2 - 5.2 gm/dL 4.3 AST 0 - 30 unit/L 9 ALT 0 - 30 unit/L 10 Alk Phos 35 - 105 unit/L 67 Total Bilirubin 0.2 - 1.3 mg/dL 0.2 Bili, Direct 0.0 - 0.3 mg/dL 0.1 documented in this encounter Plan of Treatment Not on filedocumented as of this encounter Results Hepatic Function Panel (08/22/2020 3:47 PM EST) P athologist Signature Total Protein 6.7 6.1 - 8.0 [place]AH gm/dL [facility] Albumin 4.3 3.2 - 5.2 [place] gm/dL [facility] AST 9 0 - 30 [facility] DE[facility] unit/L [facility] ALT 10 0 - 30 [facility] DE[facility] unit/L [facility] Alk Phos 67 35 - 105 [place] unit/L [facility] Total 0.2 0.2 - 1.3 [facility] Bilirubin mg/dL [facility] Bili, Direct 0.1 0.0 - 0.3 [facility] DEBORAH mg/dL [facility] Specimen Anatomical Collection Method Collection Time Receive d Time (Source) Location / / Volume Laterality Blood specimen 08/22/2020 3:47 PM 020 3:58 (specimen) EST PM EST Resulting Agency Comment Spec In Lab Raegan Bailey MD CHEMISTRY ORDERABLES Performing Organization Address City/State/[place] [address] documented in this encounter Visit Diagnoses Diagnosis Urticarial vasculitis - Primary Hypersensitivity angiitis, unspecified Medication monitoring encounter Encounter for therapeutic drug monitorin g documented in this encounter Care Teams Evaluation Manager Relationship Specialty Start Date End Date Sania Lebron APRN PCP - General 12/08/12 07/19/21 [address] [place] [address] documented as of this encounter
--- OUTSIDE RECORDS SUMMARY | 2022-04-28 13:56 | XMS_ITS | Encounter Summary ---
:1970 Author Organization [facility] [place] [address] Care Team Providers Name Role Phone Sania Lebron APRN Primary Care Provider Encounter Details Date Type Department Care Team Description 05/19/2020 [facility] [address] [place] [address] [facility] [phone] [address]-DERMATOLOGY [place], [place] [address] (Wo rk) Social History Tobacco Use Types Packs/Day Years Used Date Never Smoker Smokeless Tobacco: Never Used Sex Assigned at Date Recorded Not on file documented as of this encounter Progress Notes Jenna Garvin MD - 05/19/2020 9:00 AM EDT DERMATOLOGY - ESTABLISHED PATIENT NOTE Date of service: 05/19/2020 Sun Lopez : 1970 CC: urticaria follow-up HPI: Sun Lopez is a 49 y.o. established patient. Last seen in [facility]: 04/29/2020 Here today with the following concerns: Patient here today for urticaria follow-up. Currently taking Levocetirizine 10 mg twice daily, Famotidine 20 mg twice daily and Monteleukast 10 mg every night. She started the Doxepin at last visit andtook it for 1 week before having to stop it due to her being too tired. Currently, well controlled with this routine. Not currently in a flare. Last flare was Saturday05/16/2020 when she forgot to take her morning medications. Relevant Medical History: Preferred name: Sun Skin type: 2 Yes/No If yes (date, subtype, location, treatment) Melanoma n Dysplastic nevi n SCC n BCC n AK n Eczema/Psoriasis n Immunosuppression or Malignancy n History of blistering sunburn n Other Procedure Screening Questions: Yes/No If Yes, details Defibrillator/Pacemaker no Artificial Joints no Heart Valves no Blood Thinners no Prophylactic Antibiotics no Best way to reach with results Cell phone OK to talk to Mj, OK to lealysia detailed voicemail Relevant Family History: Yes/No If yes, who (mom/dad/sibling/child) Melanoma n SCC n BCC n Psoriasis or Eczema n Other Mother - Graves disease Social History: Occupation: Work as a microbiologist & runs [employer] Marital status: Medications: FLUoxetine, cetirizine, clonazePAM, diphenhydrAMINE, doxepin, ethinyl estradiol/drospirenone, famotidine, hydrOXYzine, levocetirizine, and montelukast Allergies Allergen Reactions ??? Perphenazine CIS - breathing difficulty Review of Systems: - General: Feels well. - Skin: No other skin concerns. Examination: - Constitutional: Patient was alert, well-appearing and in no noticeable distress. - Skin exam: Focused skin examination of the bilateral upper and lower extremities was normal with the exception of the findings listed below. Notable findings/Assessment/Plan: 1. Chronic Urticaria- Currently on exam there are no lesion. -Patient will continue the current regimen of Levocetirizine 10 mg twice daily, Famotidine 20 mg twice daily and Monteleukast 10 mg every night. Not appropriate to taper any medication as patient has aflare on 05/16/2020 when she forgot to take morning medications. -Can stay off doxepin as her symptoms are well controlled. -Will reevaluate in 1 month to taper medications if symptoms appropriately controlled. If clear after 1 month, plan to taper off famotidine first, stop PM dose x 1 week, if still clear stop AM dose. RTC: Return in about 2 months (around 07/19/2020) for chronic urticaria f/u. Note initiated by ROSA Lobo. ROSA Mckeon has performed the documentation for this encounter in the presence of and acting as a scribe for Dr. Garvin. I performed the above scribed service and agree with the accuracy of the documentation in this encounter. Reviewed and signed by: Jenna Garvin MD Dermatology Resident [facility] Ayana Avina MD - 05/19/2020 9:00 AM EDT I directly supervised Dr. Garvin during this office visit. Dr. Garvin presented the history and physical exam to me. I, then, saw and examined this patient with Dr. Garvin . We reviewed the history and pertinent details and I confirmed the physical findings. I agree with the details of the history and physical exam as documented in Dr. Garvin's note. AYANA AVINA MD Staff Physician documented in this encounter Plan of Treatment Not on filedocumented as of this encounter Visit Diagnoses Diagnosis Chronic urticaria Other specified urticaria documented in this encounter Care Teams Clinical Documentation Specialist Relationship Specialty Start Date End Date Sania Lebron APRN PCP - General 12/08/12 07/19/21 [address] [place] [address] documented as of this encounter
--- OUTSIDE RECORDS SUMMARY | 2022-04-28 13:56 | XMS_ITS | Encounter Summary ---
:1970 Author Organization [facility] [place] [address] Care Team Providers Name Role Phone Sania Lebron APRN Primary Care Provider Encounter Details Date Type Department Care Team Description 06/28/2020 Office Visit Allergy at [facility] Mariaelena Bailey, Chronic idiopathic urticaria ; [facility] Raegan Goldsmith MD Normocomplementemic urticarial vasculiti s; [facility] Medication monitoring [place], [place] CENTER [address] ALLERGY DEPT [phone] [place] [address] Social History Tobacco Use Types Packs/Day Years Used Date Never Smoker Smokeless Tobacco: Never Used Sex Assigned at Date Recorded Not on file documented as of this encounter Last Filed Vital Signs Vital Sign Reading Time Taken Comments Blood Pressure 150/86 06/28/2020 10:37 AM EDT Pulse 90 06/28/2020 10:37 AM EDT Temperature - - Respiratory Rate - - Oxygen Saturation 98% 06/28/2020 10:37 AM EDT Inhaled Oxygen Concentration - - Weight 90.7 kg (199 lb 15.3 oz) 06/28/2020 10:37 AM EDT Height - - Body Mass Index 33.27 03/10/2020 2:30 PM EDT documented in this encounter Progress Notes Raegan Santamaria MD - 06/28/2020 11:00 AM EDT Images from the original note were not included. [facility] Section of Allergy and Clinical Immunology Date of Service: 06/28/20 Primary Care Provider: Sania Lebron APRN Patient Age: 49 y.o. 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 She reports that she continue to have flares. Urticaria started in October. She describes itchy/burning welts that come and go on her neck, shoulders, arms, torso, feet and hands. Triggers include heat. She has found oatmeal baths helpful. She is currently on levocetirizine 10 mg twice daily, famotidine 20 mg twice daily, colchicine 0.6 mg twice daily. If she takes the colchicine with food, she does OK. She has noticed if she takes colchicine on an empty stomach, she then develops diarrhea. She stopped montelukast due to elevated triglyceride levels. Outpatient Medications Marked as Taking for the 06/28/20 encounter (Office Visit) with [facility] Raegan Bailey MD Medication Sig Dispense Refill ??? FLUoxetine 60 mg Tablet TAKE ONE TABLET BY MOUTH EVERY DAY ??? triamcinolone (KENALOG) 0.1 % Ointment APPLY [...] 6 hours as needed for Itching. ??? hydrOXYzine (Atarax) 10 mg Tablet Take 10 mg by mouth every 6 hours as needed for Itching. ??? FLUoxetine (PROZAC) 40 mg Capsule Take 60 mg by mouth daily. ??? clonazePAM (KLONOPIN) 0.5 mg Tablet Take [...] How water baseboard heat +chickens Objective: BP 150/86 Pulse 90 Wt 90.7 kg (199 lb 15.3 oz) SpO2 98% BMI 33.27 kg/m?? No flowsheet data found. Wt Readings from Last 3 Encounters: 06/28/20 90.7 kg (199 lb 15.3 oz) 06/09/20 90.7 kg (200 lb) 03/10/20 86.2 kg (190 lb 0.6 oz) Normal Except General: - No apparent distress [...] Villasenor MD Verified: 03/28/2020 Dermatopathologist Performed at: -[facility] Dept. 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 She is interested in omalizumab. We discussed risks and benefits today. Continue trial of colchicine 0.6 mg twice daily in the meantime. She has normal baseline AST/ALT. Plan to recheck hepatic panel. She can stop montelukast. I recommend she continue with colchicine and antihistamines. I also wrote a new script for hydroxyzine 25 mg every 8 hours as needed. She signed a consent form for omalizumab. Orders placed for omalizumab 300 mg every 28 days. All questions were answered, and patient expressed understanding of the plan. Thank you for the opportunity to participate in the care of your patient. If I can provide any further assistance, please do not hesitate to contact me. Return for follow-up appointment in 4-6 weeks. Raegan Bailey MD Coding Clerks Supervisor, Allergy [place] [address] [email or web address] documented in this encounter Plan of Treatment Not on filedocumented as of this encounter Procedures Procedure Name Priority Date/Time Associated Comments Diagnosis CRP, ACUTE Routine 06/28/2020 12:02 Results for this INFLAMMATION PM EDT procedure are i n the results section. HEMOGRAM Routine 06/28/2020 12:02 Results for this PM EDT procedure are i n the results section. DIFFERENTIAL, Routine 06/28/2020 12:02 Results fo r this AUTOMATED PM EDT procedure are i n the results section. RETICULOCYTE COUNT Routine 06/28/2020 12:02 Resul ts for this PM EDT procedure are i n the results section. HEPATIC FUNCTION Routine 06/28/2020 12:02 Results for this PANEL PM EDT procedure are i n the results section. documented in this encounter Results Hepatic Function Panel (06/28/2020 12:02 PM EDT) Analysis Performed At Patho logist Time Signature Total Protein 6.6 6.1 - 8.0 [facility] Albumin 4.1 3.2 - 5.2 [facility] gm/dL [facility] AST 16 0 - 30 [facility] unit/L [facility] ALT 11 0 - 30 [facility] unit/L [facility] Alk Phos 59 35 - 105 [facility] unit/L [facility] Total Not Perf 0.2 - 1.3 [facility] Bilirubin mg/dL [facility] Comment: Analyte stability exceeded; quang t not performed. Bili, Direct Not Perf 0.0 - 0.3 mg/dL [facility] Comment: Analyte stability exceeded; quang t not performed. Specimen Anatomical Collection Method Collection Time Receive d Time (Source) Location / / Volume Laterality Blood specimen Venous Draw / 06/28/2020 12:02 06/28/20 20 (specimen) Unknown PM EDT 12:24 PM EDT Resulting Agency Comment Spec In Lab Raegan Bailey MD CHEMISTRY ORDERABLES Performing Organization Address City/State/[place] [address] (ABNORMAL) CRP, acute inflammation (06/28/2020 12:02 PM EDT) P athologist Signature CRP 14.5 (H) <=4.9 mg/L [facility] Specimen Anatomical Collection Method Collection Time Receive d Time (Source) Location / / Volume Laterality Blood specimen Venous Draw / 06/28/2020 12:02 06/28/20 20 (specimen) Unknown PM EDT 12:14 PM EDT Resulting Agency Comment Spec In Lab Raegan Bailey MD CHEMISTRY ORDERABLES Performing Organization Address City/State/[place] [address] (ABNORMAL) Differential, Automated (06/28/2020 12:02 PM EDT) Patholo gist Method Time Signature Neutrophils % 46.3 % [facility] Neutr Abs (ANC) 3.49 1.70 - [facility] 6.10 [facility] x10(3)/[facility]AT[facility] Lymphocytes % 43.3 % [facility] Lymphocytes Abs 3.3 (H) 0.9 - 3.2 [facility] x10(3)/[facility] LABORATORY Monocytes % 8.5 % [facility] Monocyte Abs 0.6 0.3 - 0.9 [facility] x10(3)/[facility] LABORATORY Eosinophils % 1.5 % [facility] Eosinophils Abs 0.1 0.0 - 0.4 [facility] x10(3)/[facility] LABORATORY Basophils % 0.1 % [facility] Basophils Abs 0.0 0.0 - 0.1 [facility] x10(3)/[facility] LABORATORY Immature Gran % 0.30 % [facility] Comment: Immature granulocytes(IG's)percentage an d absolute count will include metamyelocytes, myelocytes, and promyelo cytes. Blood smears from CBCs yielding IG's will be scanned manually for concor dance. If this scan disagrees with the automated IG or if promyelocytes are not ed, a manual differential will be performed. Amie Gran Abs 0.02 0.00 - 0.04 x10(3)/[facility]ORY Specimen Anatomical Collection Method Collection Time Receive d Time (Source) Location / / Volume Laterality Blood specimen Venous Draw / 06/28/2020 12:02 06/28/20 20 (specimen) Unknown PM EDT 12:14 PM EDT Resulting Agency Comment Spec In Lab Raegan Bailey MD HEMATOLOGY ORDERABLES Performing Organization Address City/State/[place] [address] Hemogram (06/28/2020 12:02 PM EDT) P athologist Signature WBC 7.5 4.0 - 9.5 [facility] x10(3)/[facility] LABORATORY RBC 4.62 4.00 - [facility] 5.21 [facility] x10(6)/[facility] LABORATORY Hemoglobin 13.1 11.7 - [facility] 15.5 gm/dL [facility] Hematocrit 39.4 35.7 - [facility] 45.8 % [facility] MCV 85.3 82.6 - [facility] 94.4 [facility] LABORATORY MCH 28.4 27.1 - [facility] 32.0 pg [facility] MCHC 33.2 31.7 - [facility] 35.0 gm/dL [facility] Platelets 240 145 - 357 [facility] x10(3)/[facility] LABORATORY RDWSD 41.2 37.0 - [facility] 46.0 [facility] LABORATORY RDWCV 13.3 11.5 - [facility] 14.1 % [facility] MPV 9.8 7.6 - 12.9 [facility] LABORATORY nRBC % Auto 0.0 % [facility] nRBC Abs Auto 0.000 0.000 - [facility] 0.000 [facility] x10(3)/[facility] LABORATORY Specimen Anatomical Collection Method Collection Time Receive d Time (Source) Location / / Volume Laterality Blood specimen Venous Draw / 06/28/2020 12:02 06/28/20 20 (specimen) Unknown PM EDT 12:14 PM EDT Resulting Agency Comment Spec In Lab Raegan Bailey MD HEMATOLOGY ORDERABLES Performing Organization Address City/State/[place] [address] Reticulocyte Count (06/28/2020 12:02 PM EDT) P athologist Signature Retic Ct % 1.7 0.7 - 2.5 [facility] Retic Ct Abs 0.080 0.020 - [facility] 0.110 [facility] x10(6)/[facility] LABORATORY Immature Retic% 6.6 0.5 - 13.8 [facility] Reticulated Hgb 33.7 29.8 - [facility] 39.4 [facility] LABORATORY Specimen Anatomical Collection Method Collection Time Receive d Time (Source) Location / / Volume Laterality Blood specimen Venous Draw / 06/28/2020 12:02 06/28/20 20 (specimen) Unknown PM EDT 12:14 PM EDT Resulting Agency Comment Spec In Lab Raegan Bailey MD HEMATOLOGY ORDERABLES Performing Organization Address City/State/ZIP Code Phon e Number [place] [id number] documented in this encounter Visit Diagnoses Diagnosis Chronic idiopathic urticaria Idiopathic urticaria Normocomplementemic urticarial vasculiti s Medication monitoring encounter Encounter for therapeutic drug monitorin g documented in this encounter Care Teams Destination Imagination Coordinator Relationship Specialty Start Date End Date Sania Lebron APRN PCP - General 12/08/12 07/19/21 [address] [place] [address] documented as of this encounter
--- OUTSIDE RECORDS SUMMARY | 2022-04-28 13:56 | XMS_ITS | Encounter Summary ---
:1970 Author Organization [facility] [address] Care Team Providers Name Role Phone Sania Lebron APRN Primary Care Provider Encounter Details Date Type Department Care Team Description 12/30/2014 Hospital Encounter Mammography at [facility], [facility] Caleb Doyle MD [address] [place] [address] [place] [address] Social History Tobacco Use Types Packs/Day Years Used Date Never Smoker Sex Assigned at Date Recorded Not on file documented as of this encounter Medications at Time of Discharge Medication Sig Dispensed Refills Start Date End Date escitalopram (LEXAPRO) 20 mg tablet 0 07/04/2010 06/10/2019 documented as of this encounter Plan of Treatment Not on filedocumented as of this encounter Procedures Procedure Name Priority Date/Time Associated Diagnosis Comme nts MAMMO 2D DIGITAL Routine 12/30/2014 9:33 AM Resul ts for this SCREEN ARTUR EDT procedure are i n BILATERAL the results section. documented in this encounter Results Mammography Screen Artur 2D Bilateral (12/30/2014 9:33 AM EDT) Anatomical Region Laterality Modality Breast Bilateral Mammography Specimen (Source) Anatomical Collection Method Collection Time Re ceived Time Location / / Volume Laterality 12/30/2014 9:33 AM EDT Narrative 01/01/2015 7:29 AM EDT Reason for Exam: Screening ?? Technique: Craniocaudal (CC) and Medio-l ateral Oblique (MLO) views of both breasts obtained with direct digital cap ture. In addition to routine 2-D imaging, this exam was also performed wi th 3-D Tomographic Imaging (MLO and CC). ?? The exam was evaluated by CAD version 8. 3.17. ?? Findings: ?? This is a negative mammogram (ACR Catego ry 1). There is a stable fibroglandular pattern without significant change from prior studies. There is no mammographic evidence of can cer. The breasts are of scattered density. ?? CONCLUSION: This is a NEGATIVE mammogram (ACR Catego ry 1). ?? Routine screening mammography is recomme nded with the frequency dependent upon the patients age and breast cancer risk factors. A letter has been sent to this patient b y the [facility] [place]. ?? Procedure Note Mariela Bailey MD - 12/15 Reason for Exam: Screening Technique: Craniocaudal (CC) and Medio-l ateral Oblique (MLO) views of both breasts obtained with direct digital cap ture. In addition to routine 2-D imaging, this exam was also performed wi th 3-D Tomographic Imaging (MLO and CC). The exam was evaluated by CAD version 8. 3.17. Findings: This is a negative mammogram (ACR Catego ry 1). There is a stable fibroglandular pattern without significant change from prior studies. There is no mammographic evidence of can cer. The breasts are of scattered density. CONCLUSION: This is a NEGATIVE mammogram (ACR Catego ry 1). Routine screening mammography is recomme nded with the frequency dependent upon the patients age and breast cancer risk factors. A letter has been sent to this patient b y the [facility] [place]. Sania JUAREZ MAMMO ORDERABLES documented in this encounter Visit Diagnoses Not on filedocumented in this encounter Care Teams Personal Clothing Laundry Aide Relationship Specialty Start Date End Date Sania Lebron APRN PCP - General 12/08/12 07/19/21 [address] [place] [address] documented as of this encounter
--- OUTSIDE RECORDS SUMMARY | 2022-04-28 13:56 | XMS_ITS | Encounter Summary ---
:1970 Author Organization [place] [address] Care Team Providers Name Role Phone Sania Lebron APRN Primary Care Provider Reason for Visit Reason Comments Follow-up Allergy Testing (Routine) - Closed Specialty Diagnoses / Procedures Referred By Contact Refer red To Contact Allergy Diagnoses Chronic urticaria CHRONIC URTICARIA Ayana Weir MD [facility] All[facility] [address] [place] [address] [address] [facility] [place] [address] [place] [address] Referral ID Status Reason Start Date Expiration Date Visits V isits Requested Authorized [id number] Closed Consult, 06/08/2020 06/08/2021 1 1 Test & Treat Encounter Details Date Type Department Care Team Description 06/09/2020 Office [place] [facility] [place]egan Santamaria Urticarial vasculitis [facility] [place] [address] ALLERGY DEPT [phone] [place], [place] [address] Social History Tobacco Use Types Packs/Day Years Used Date Never Smoker Smokeless Tobacco: Never Used Sex Assigned at Date Recorded Not on file documented as of this encounter Last Filed Vital Signs Vital Sign Reading Time Taken Comments Blood Pressure - - Pulse 76 06/09/2020 3:37 PM EDT Temperature - - Respiratory Rate - - Oxygen Saturation 98% 06/09/2020 3:37 PM EDT Inhaled Oxygen Concentration - - Weight 90.7 kg (200 lb) 06/09/2020 3:37 PM EDT Height - - Body Mass Index 33.28 03/10/2020 2:30 PM EDT documented in this encounter Progress Notes Raegan Santamaria MD - 06/09/2020 4:00 PM EDT Images from the original note were not included. [facility] Section of Allergy and Clinical Immunology Date of Service: 06/09/20 Primary Care Provider: Sania Lebron APRN Patient Age: 49 y.o. 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 She reports that she continue to have flares. Urticaria started in October. She describes itchy/burningwelts that come and go on her neck, shoulders, arms, torso, feet and hands. Triggers include heat. She has found oatmeal baths helpful. She is currently on levocetirizine 10 mg twice daily, famotidine 20 mg twice daily, montelukast 10 mg nightly. She last had a flare on Saturday and last week. She showed pictures of hives on her neck, upper back, shoulders, chest, stomach. Her legs and feet later in the day. Outpatient Medications Marked as Taking for the 06/09/20 encounter (Office Visit) with Raegan Santamaria MD Medication Sig Dispense Refill ??? FLUoxetine 60 mg Tablet TAKE ONE TABLET BY MOUTH EVERY DAY ??? levocetirizine (XYZAL) 5 mg Tablet Take by mouth. ??? famotidine (Pepcid) 20 mg Tablet Take 1 tablet by mouth 2 times daily. 30 tablet 12 ??? montelukast (Singulair) 10 mg Tablet Take 1 tablet by mouth nightly. 30 tablet 12 ??? clonazePAM (KLONOPIN) 0.5 mg Tablet Take [...] stove How water baseboard heat +chickens Objective: Pulse 76 Wt 90.7 kg (200 lb) SpO2 98% BMI 33.28 kg/m?? No flowsheet data found. Wt Readings from Last 3 Encounters: 06/09/20 90.7 kg (200 lb) 03/10/20 86.2 kg (190 lb 0.6 oz) 02/19/20 86.2 kg (190 lb) Normal Except General: - No apparent distress Eyes: - Conjunctivae without injection; - No eyelid swelling ENT: - No erythema of the tympanic membranes - Normal external ear canals - Oropharynx well hydrated without lesions or exudates; Neck: - Symmetrical, no masses, trachea midline; Resp: - Unlabored breathing with symmetrical and equal bilateral expansion; - CTA w/o wheezes, rales, or rhonchi; CV: - Regular rate and rhythm - No pedal swelling GI: - Abdomen soft - Bowel sounds present Lymph: - No significant cervical, supraclavicular or infraclavicular lymphadenopathy Musculoskeletal: - Nl gait and station Extremities: - No clubbing, cyanosis, or edema Skin: A few scattered urticarial lesions Neuro: - Nl gait and station Psych: [...] Villasenor MD Verified: 03/28/2020 Dermatopathologist Performed at: [place] [place] Dept. 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 She is interested in omalizumab. We discussed risks and benefits. I also discussed trial of colchicine 0.6 mg twice daily first. Potential GI side effects were discussed today. She has normal baseline AST/ALT. She was given a consent form for omalizumab to review. All questions were answered, and patient/parents expressed understanding of the plan. Thank you for the opportunity to participate in the care of your patient. If I can provide any further assistance, please do not hesitate to contact me. Return for follow-up appointment in 4-6 weeks. Raegan Bailey MD Panel Coverer, [place] [address] [email or web address] documented in this encounter Plan of Treatment Not on filedocumented as of this encounter Visit Diagnoses Diagnosis Urticarial vasculitis Hypersensitivity angiitis, unspecified documented in this encounter Care Teams Emergency Room Nurse Relationship Specialty Start Date End Date Sania Lebron APRN PCP - General 12/08/12 07/19/21 [address] [place] [address] documented as of this encounter
--- OUTSIDE RECORDS SUMMARY | 2022-04-28 13:56 | XMS_ITS | Encounter Summary ---
:1970 Author Organization [facility] [address] Care Team Providers Name Role Phone Sania Lebron APRN Primary Care Provider Encounter Details Date Type Department Care Team Description 03/10/2020 [place] [facility] [place] Chronic idiopathic urticaria ; [facility] MD Agus Angioedema, [place] [address] ALLERGY DEPT [phone] [place], [place] [address] Social History Tobacco Use Types Packs/Day Years Used Date Never Smoker Smokeless Tobacco: Never Used Sex Assigned at Date Recorded Not on file documented as of this encounter Last Filed Vital Signs Vital Sign Reading Time Taken Comments Blood Pressure 126/84 03/10/2020 2:30 PM EDT Pulse 77 03/10/2020 2:30 PM EDT Temperature - - Respiratory Rate - - Oxygen Saturation 100% 03/10/2020 2:30 PM EDT Inhaled Oxygen Concentration - - Weight 86.2 kg (190 lb 0.6 oz) 03/10/2020 2:30 PM EDT Height 165.1 cm (5' 5) 03/10/2020 2:30 PM EDT Body Mass Index 31.62 03/10/2020 2:30 PM EDT documented in this encounter Progress Notes Raegan Santamaria MD - 03/10/2020 2:30 PM EDT Images from the original note were not included. [facility] Section of Allergy and Clinical Immunology Date of Service: 03/10/2020 Primary Care Provider: Sania Lebron APRN Patient Age: 49 y.o. 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 She describes itchy welts that come and go on her neck, shoulders, arms, torso, feet andhands. Triggers include heat. She has found oatmeal baths helpful. She has been worse the last few days. She also reports that in the last few days, her lesions felt like they burned Instead of itchy. Last week, I recommended levocetirizine 5 mg twice daily, she has since intermittently increased to levocetirizine 10 mg twice daily. She also continues Benedryl at night to help her sleep. She reportstolerating levocetirizine better than cetirizine. Outpatient Medications Marked as Taking for the 03/10/20 encounter (Office Visit) with Raegan Santamaria MD Medication Sig Dispense Refill ??? cetirizine (ZyrTEC) 10 mg Tablet Take 10 mg by mouth daily. ??? diphenhydrAMINE (Benadryl) 25 mg Capsule Take [...] How water baseboard heat +chickens Objective: BP 126/84 (BP Location (NBP): Right arm, Patient Position: Sitting) Pulse 77 Ht 165.1 cm (5' 5) Wt 86.2 kg (190 lb 0.6 oz) SpO2 100% BMI 31.62 kg/m?? No flowsheet data found. Wt Readings from Last 3 Encounters: 03/10/20 86.2 kg (190 lb 0.6 oz) 02/19/20 86.2 kg (190 lb) 06/10/19 83.9 kg (185 lb) Normal Except General: - No apparent distress Eyes: - Conjunctivae without injection; - No eyelid swelling ENT: - No erythema of the tympanic membranes - Normal external ear canals - Nl nasal mucosa, septum, and turbinates; - Oropharynx well hydrated without lesions or exudates; - Face & sinuses non-tender to palpation/percussion Neck: - Symmetrical, no masses, trachea midline; Resp: - Unlabored breathing with symmetrical and equal bilateral expansion; - CTA w/o wheezes, rales, or rhonchi; CV: - Regular rate and rhythm - No pedal swelling GI: - Abdomen soft - Bowel sounds present - No hepatosplenomegaly Lymph: - No significant cervical, supraclavicular or infraclavicular lymphadenopathy Musculoskeletal: - Nl gait and station Extremities: - No clubbing, cyanosis, or edema Skin: A few scattered urticarial lesions Neuro: - Nl gait and station Psych: - Nl and age appropriate mood and affect - Judgement and insight intact Labs: Component Latest Ref Rng & Units 02/19/2020 Thyroperox Ab <=34 IU/mL 10 TSH 0.27 - 4.20 mcIU/mL 0.81 CU Index <10 1.6 Tryptase <=11.1 ng/mL 9.6 Assessment and Plan: 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 She feels some improvement on increased dose of levocetirizine, however continues to have breakthrough symptoms. We discussed adding H2 pradip and montelukast. We discussed rare side effect of neurpsych iatric effects of montelukast. Scripts sent to pharmacy. We also briefly discussed alternative options, including omalizumab if her symptoms continue to be refractory to antihistamines. If her symptoms are refractory to adding H2 pradip and montelukast and her lesions continue to burn, I recommend follow-up with dermatology. Skin biopsy ruling out urticarial vasculitis may be helpful. All questions were answered, and patient/parents expressed understanding of the plan. Thank you for the opportunity to participate in the care of your patient. If I can provide any further assistance, please do not hesitate to contact me. She may cancel already scheduled March 17 appt, or Raegan Goldsmith. Mariaelena Bailey MD Brand Representative, Allergy and Clinical Immunology [place] [phone] [email or web address] documented in this encounter Plan of Treatment Not on filedocumented as of this encounter Visit Diagnoses Diagnosis Chronic idiopathic urticaria Idiopathic urticaria Angioedema, subsequent encounter documented in this encounter Care Teams Co Founder And President Relationship Specialty Start Date End Date Sania Lebron APRN PCP - General 12/08/12 07/19/21 [address] [place] [address] documented as of this encounter
--- OUTSIDE RECORDS SUMMARY | 2022-04-28 13:56 | XMS_ITS | Encounter Summary ---
:1970 Author Organization [place] [address] Care Team Providers Name Role Phone Sania Lebron APRN Primary Care Provider Encounter Details Date Type Department Care Team Description 05/05/2020 Telephone Dermatology at [facility] Ayana Gonzáles MD [address] [facility] [place] [address] [facility]-DER[facility] [phone] [place], [place] [address] (Wo rk) Social History Tobacco Use Types Packs/Day Years Used Date Never Smoker Smokeless Tobacco: Never Used Sex Assigned at Date Recorded Not on file documented as of this encounter Miscellaneous Notes Telephone Encounter - Mitul Dixon LNA - 05/05/2020 10:27 AM EDT Left detailed message for Sun Jaylen Lopez with my direct call back number to schedule appointment with Dr.Joi Weir per Request from . f/u chronic urticaria documented in this encounter Plan of Treatment Not on filedocumented as of this encounter Visit Diagnoses Not on filedocumented in this encounter Care Teams Plate Washer Relationship Specialty Start Date End Date Sania Lebron APRN PCP - General 12/08/12 07/19/21 [address] [place] [address] documented as of this encounter
--- OUTSIDE RECORDS SUMMARY | 2022-04-28 13:56 | XMS_ITS | Encounter Summary ---
:1970 Author Organization [facility] [place] [address] Care Team Providers Name Role Phone Sania Lebron APRN Primary Care Provider Encounter Details Date Type Department Care Team Description 05/04/2019 Hospital Encounter Mamm[place] at [facility] [place] [facility] [place] mamm[facility] [address] [place] [address] [phone] Social History Tobacco Use Types Packs/Day Years [...] Diagnosis Comme nts MAMMO SCREENING CAD Routine 05/04/2019 9:47 AM Encounter for R esults for this AND ARTUR BILATERAL EDT screening mammogram pr ocedure are in for breast cancer the result s section. documented in this encounter Results Mammo Screening Cad and Artur Bilateral (05/04/2019 9:47 AM EDT) Anatomical Region Laterality Modality Breast Bilateral Mammography Specimen (Source) Anatomical Location Collection Method / Collectio n Time Received Time / Laterality Volume Narrative 05/04/2019 9:58 AM EDT BILATERAL MAMMOGRAPHY REASON FOR EXAM: Screening TECHNIQUE: CC and MLO views were obtaine d of each breast using standard 2-D mammography as well as 3-D tomosynthesis . Computer aided detection was used. Comparison: This is compared with prior images. FINDINGS: There are scattered areas of f ibroglandular density. There are no suspicious microcalcifications, masses, or areas of distortion. The pattern is stable. Bilateral stable benign-appearin g focal asymmetries. CONCLUSION: No mammographic evidence of malignancy. RECOMMENDATION: Routine screening. A result letter has been sent to this pa tient by the [facility]. BIRADS CATEGORY 2: Benign findings. * ??The [employer] an d The Society of Breast Imaging recommend annual screening beginning at age 40 for the general female population. * ??Screening should continue as long as a woman is in good health and is expected to live 10 more years or longer . * ??All women should be familiar with [facility] known benefits, limitations, and potential harms linked to breast cancer screening. They also should know how their breasts normally look and feel and report any breast changes to a health care provider right away. * ??Some women, because of their family history, a genetic tendency, or certain other factors, should be screened with M RIs along with mammograms. (The number of women who fall into this category is very small.) The patient and health care provider should discuss the patient hist ory and decide if earlier screening and breast MRI are appropriate. Thank you for letting us participate in the care of this patient. For questions regarding this report, please contact [facility] number below. ? Sania Lebron APRN IMG MAMMO ORDERABLES documented in this encounter Visit Diagnoses Diagnosis Encounter for screening mammogram for br east cancer documented in this encounter Care Teams Web Press Operator Helper Offset Relationship Specialty Start Date End Date Sania Lebron APRN PCP - General 12/08/12 07/19/21 [address] [place] [address] documented as of this encounter
--- OUTSIDE RECORDS SUMMARY | 2022-04-28 13:56 | XMS_ITS | Encounter Summary ---
:1970 Author Organization [facility] [place] [address] Care Team Providers Name Role Phone Sania Lebron APRN Primary Care Provider Encounter Details Date Type Department Care Team Description 12/11/2012 Orders Only Radiology Yumiko Akers MD [facility] [place] [address] DIAGNOSTIC RADIOLOGY [phone] [place], [place] [address] (Wo rk) Social History Tobacco Use Types Packs/Day Years Used Date Never Smoker Sex Assigned at Date Recorded Not on file documented as of this encounter Plan of Treatment Pending Results Name Type Priority Associated Diagnoses Date/Ti me Film Library- Storage Imaging Routine 2012 3:20 PM EDT only Mammo documented as of this encounter Visit Diagnoses Not on filedocumented in this encounter Care Teams Human Services Assistant Relationship Specialty Start Date End Date Sania Lebron APRN PCP - General 12/08/12 07/19/21 [address] [place] [address] documented as of this encounter
--- OUTSIDE RECORDS SUMMARY | 2022-04-28 13:56 | XMS_ITS | Encounter Summary ---
:1970 Author Organization [facility] [place] [address] Care Team Providers Name Role Phone Sania Lebron APRN Primary Care Provider Encounter Details Date Type Department Care Team Description 05/13/2020 Hospital Encounter Mammography/DXA at [facility] Lui screening mammogram [facility] [address] [place] [phone] Social History Tobacco Use Types Packs/Day Years Used Date Never Smoker Smokeless Tobacco: Never Used Sex Assigned at Date Recorded Not on file documented as of this encounter Medications at Time of Discharge Medication Sig Dispensed Refills Start Date End Date hydrOXYzine (Atarax) 10 mg Take 10 mg by 0 Tablet mouth every 6 hours as needed for Itching. clonazePAM (KLONOPIN) 0.5 Take 0.5 mg by 0 mg Tablet mouth 2 times daily as needed for Anxiety. ethinyl Take by mouth. 0 estradiol/drospirenone (OCELLA ORAL) FLUoxetine 60 mg Tablet TAKE ONE TABLET BY 0 /09/201912/01/2020 MOUTH EVERY DAY triamcinolone (KENALOG) APPLY TO AFFECTED 0 12/2212/01/2020 0.1 % Ointment AREA S NEEDED TWO TIMES A DAY FOR 14 DAYS doxepin (Sinequan) 10 mg Take 1 capsule by 30 capsule 0 0803/202012/01/2020 Capsule mouth nightly. levocetirizine (XYZAL) 5 Take by mouth. 0 12/01/2020 mg Tablet famotidine (Pepcid) 20 mg Take 1 tablet by 30 tablet 12 02/1512/01/2020 TabletIndications: Chronic mouth 2 times idiopathic urticaria daily. montelukast (Singulair) 10 Take 1 tablet by 30 tablet 12 12/01/2020 mg TabletIndications: mouth nightly. Chronic idiopathic urticaria, Angioedema, subsequent encounter cetirizine (ZyrTEC) 10 mg Take 10 mg by 0 06/09/2020 Tablet mouth daily. diphenhydrAMINE (Benadryl) Take 25 mg by 0 12/01/2020 25 mg Capsule mouth every 6 hours as needed for Itching. FLUoxetine (PROZAC) 40 mg Take 60 mg by 0 12/01/2020 Capsule mouth daily. documented as of this encounter Plan of Treatment Not on filedocumented as of this encounter Procedures Procedure Name Priority Date/Time Associated Diagnosis Comme nts MAMMO SCREENING CAD Routine 05/13/2020 8:48 AM Encounter for R esults for this AND ARTUR BILATERAL EDT screening mammogram pr ocedure are in for breast cancer the result s section. documented in this encounter Results Mammo Screening Cad and Artur Bilateral (05/13/2020 8:48 AM EDT) Anatomical Region Laterality Modality Breast Bilateral Mammography Specimen (Source) Anatomical Location Collection Method / Collectio n Time Received Time / Laterality Volume Narrative 05/13/2020 8:56 AM EDT BILATERAL MAMMOGRAPHY REASON FOR EXAM: [...] letter has been sent to this pa alma by the [facility]. BIRADS CATEGORY 1: NEGATIVE Sania Lebron APRN IMG MAMMO ORDERABLES documented in this encounter Visit Diagnoses Diagnosis Encounter for screening mammogram for br east cancer documented in this encounter Care Teams Quality Technician Relationship Specialty Start Date End Date Sania Lebron APRN PCP - General 12/08/12 07/19/21 [address] [place] [address] documented as of this encounter
--- OUTSIDE RECORDS SUMMARY | 2022-04-28 13:56 | XMS_ITS | Encounter Summary ---
:1970 Author Organization [facility] [address] Care Team Providers Name Role Phone Sania Lebron APRN Primary Care Provider Encounter Details Date Type Department Care Team Description 04/05/2020 Telephone Dermatology at [facility] Glory Weinstein MD [address] [facility] [place] [address] [facility] [phone] [place], [place] [address] (Wo rk) Social History Tobacco Use Types Packs/Day Years Used Date Never Smoker Smokeless Tobacco: Never Used Sex Assigned at Date Recorded Not on file documented as of this encounter Miscellaneous Notes Telephone Encounter - Glory Weinstein MD - 04/05/2020 1:50 PM EDT Patient's call returned. See note for details. Telephone Encounter - Marva Langston - 04/05/2020 8:09 AM EDT I received a phone call from Sun Lopez stating her hives have gotten really bad, she is wondering if she could get a prescription for predisone or something that would help calm them down. I told Bishop would send a message to the nurse to see if someone can give her a call back later this morning. She can be reached back at [phone] ex [phone] documented in this encounter Plan of Treatment Not on filedocumented as of this encounter Visit Diagnoses Not on filedocumented in this encounter Care Teams Pediatrics Physician Relationship Specialty Start Date End Date Sania Lebron APRN PCP - General 12/08/12 07/19/21 [address] [place] [address] documented as of this encounter
--- OUTSIDE RECORDS SUMMARY | 2022-04-28 13:56 | XMS_ITS | Encounter Summary ---
:1970 Author Organization [facility] [place] [address] Care Team Providers Name Role Phone Sania Lebron APRN Primary Care Provider Encounter Details Date Type Department Care Team Description 05/24/2020 Telephone Dermatology at [facility] Ayana Gonzáles MD [address] [facility] [place] [address] [facility] [phone] [place], [place] [address] (Wo rk) Social History Tobacco Use Types Packs/Day Years Used Date Never Smoker Smokeless Tobacco: Never Used Sex Assigned at Date Recorded Not on file documented as of this encounter Miscellaneous Notes Telephone Encounter - Mitul Dixon LNA - 05/24/2020 3:37 PM EDT Left message for Sun Jaylen Lopez with my direct call back number for scheduling follow up with Dr.Joi Weir Recall placed in system. 0 Return in about 2 months (around 07/19/2020) for chronic urticaria f/u. documented in this encounter Plan of Treatment Not on filedocumented as of this encounter Visit Diagnoses Not on filedocumented in this encounter Care Teams Motion Picture Photographer Relationship Specialty Start Date End Date Sania Lebron APRN PCP - General 12/08/12 07/19/21 [address] [place], [place] [id number] documented as of this encounter
--- OUTSIDE RECORDS SUMMARY | 2022-04-28 13:56 | XMS_ITS | Encounter Summary ---
:1970 Author Organization [facility] [place] [address] Care Team Providers Name Role Phone Andrew Bull MD Primary Care Provider Reason for Visit Reason Comments Gynecologic Exam last pap 02/23/08 WNL, neg HPV Encounter Details Date Type Department Care Team Description 11/15/2011 Office Visit Obstetrics and Raegan Ann (Primary Gynecology at [facility] LSANDRA Dx) [facility] [address] [place], [place] OBSTETRICS & [id number] GYNECOLOGY [phone] [place], [place] [address] Social History Tobacco Use Types Packs/Day Years Used Date Never Smoker Sex Assigned at Date Recorded Not on file documented as of this encounter Last Filed Vital Signs Vital Sign Reading Time Taken Comments Blood Pressure 118/64 11/15/2011 1:51 PM EST Pulse - - Temperature - - Respiratory Rate - - Oxygen Saturation - - Inhaled Oxygen Concentration - - Weight 85 kg (187 lb 8 oz) 11/15/2011 1:51 PM EST Height 163.8 cm (5' 4.5) 11/15/2011 1:51 PM EST Body Mass Index 31.69 11/15/2011 1:51 PM EST documented in this encounter Progress Notes Raegan Ann CNM - 11/15/2011 2:44 PM EST Subjective: Sun Lopez is a 40 y.o. female who presents for an annual exam. The patient has no complaints today. The patient is sexually active. Interim History Reveals Sun has been healthy since her last COMPUTER CUSTOMER SUPPORT SPECIALIST visit here in 2009. She is very happy with her OCP, her skin has cleared up almost completely and she is having only 1 - 2 days of bleeding with no cramps. She is hoping to stay on this pill through menopause. She plans a visit with her PCP for a complete check up in 2 months. (andrew bull md.) Wears seatbelts: yes last pap: was normal, 02/2008 and HPV negative Regular exercise: yes Ever been transfused or tattooed?: not asked The patient reports that domestic violence in her life is absent. Menstrual History: OB History Grav Para Term Abortions TAB SAB Ect Mult Living Patient's last menstrual period was 11/01/2011. No past medical history on file. There are no active problems to display for this patient. No past surgical history on file. No family history on file. History Social History ??? Marital Status: Spouse Name: N/A Number of Children: N/A ??? Years of Education: N/A Social History Main Topics ??? Smoking status: Never Smoker ??? Smokeless tobacco: Not on file ??? Alcohol Use: Not on file ??? Drug Use: Not on file ??? Sexually Active: Not on file Other Topics Concern ??? Not on file Social History Narrative ??? No narrative on file Current outpatient prescriptions Medication Sig Dispense Refill ??? escitalopram (LEXAPRO) 20 mg tablet ??? drospirenone-ethinyl estradiol (OCELLA) 3-0.03 mg per tablet Take 1 tablet by mouth daily for 84days. 3 Package 4 Allergies Allergen Reactions ??? Perphenazine CIS - breathing difficulty Obstetric History : 2 Para: 2 AB: 0 Gynecologic History Patient's last menstrual period was 11/01/2011. Contraception: OCP (estrogen/progesterone) Last Pap: 2007 Results: normal Review of Systems Females: COMPUTER CUSTOMER SUPPORT SPECIALIST - nl Objective: BP 118/64 Ht 163.8 cm (5' 4.5) Wt 85.049 kg (187 lb 8 oz) BMI 31.69 kg/m2 LMP 11/01/2011 BP 118/64 Ht 163.8 cm (5' 4.5) Wt 85.049 kg (187 lb 8 oz) BMI 31.69 kg/m2 LMP 11/01/2011 General Appearance: Alert, cooperative, no distress, appears stated age Head: Normocephalic, without obvious abnormality, atraumatic Eyes: PERRL, conjunctiva/corneas clear, EOM's intact, fundi benign, both eyes Ears: Normal TM's and external ear canals, both ears Nose: Nares normal, septum midline, mucosa normal, no drainage or sinus tenderness Throat: Lips, mucosa, and tongue normal; teeth and gums normal Neck: Supple, symmetrical, trachea midline, no adenopathy; thyroid: no enlargement/tenderness/nodules; no carotid bruit or JVD Back: Symmetric, no curvature, ROM normal, no CVA tenderness Lungs: Clear to auscultation bilaterally, respirations unlabored Chest Wall: No tenderness or deformity Heart: Regular rate and rhythm, S1 and S2 normal, no murmur, rub or gallop Breast Exam: No tenderness, masses, or nipple abnormality Abdomen: Soft, non-tender, bowel sounds active all four quadrants, no masses, no organomegaly Genitalia: Normal female without lesion, discharge or tenderness Rectal: Normal tone, normal prostate, no masses or tenderness; guaiac negative stool Extremities: Extremities normal, atraumatic, no cyanosis or edema Pulses: 2+ and symmetric all extremities Skin: Skin color, texture, turgor normal, no rashes or lesions Lymph nodes: Cervical, supraclavicular, and axillary nodes normal Neurologic: CNII-XII intact, normal strength, sensation and reflexes throughout . Assessment: Healthy female exam. Plan: All questions answered Await Pap smear results OCP prescriptions given for the year. documented in this encounter Plan of Treatment Not on filedocumented as of this encounter Procedures Procedure Name Priority Date/Time Associated Diagnosis Comme nts COMPUTER CUSTOMER SUPPORT SPECIALIST MOLECULAR Routine 11/15/2011 3:47 Results for this GENETICS REPORT PM EST procedure ar e in the results section. COMPUTER CUSTOMER SUPPORT SPECIALIST CYTOLOGY FINAL Routine 11/15/2011 3:47 Result s for this REPORT PM EST procedure are i n the results section. CYTOPATHOLOGY Routine 11/15/2011 1:58 Contraception Results fo r this GYNECOLOGICAL PM EST procedure are in the results section. documented in this encounter Results COMPUTER CUSTOMER SUPPORT SPECIALIST MOLECULAR GENETICS REPORT (11/15/2011 3:47 PM EST) [facility] gist Method Time Signature COMPUTER CUSTOMER SUPPORT SPECIALIST Molecular CERNER Genetics ? [facility] Report ? Provider: ?? RAEGAN ANN ??Pt. Name: ?? SUN LOPEZ ? Acc #: ?[id number] ?Pt. MRN: ?[id number] ? Col Date: ?? 11/15/2011 ?/Sex: ?1970,(41 years),Female ? Rec Date: ?? 11/15/2011 ?LOC: ?5L ? MOLECULAR GENETIC STUDIES ? ---REPORT OF DNA ANALYSIS--- ? Yaniv Ruth HPV test ? NEGATIVE for high-risk HPV *. ? It is recommended nieves t patients with ASCUS cytology and a negative test for ? high-risk HPV undergo further evaluation according to current practice ? guidelines. ??* Testi ng negative for high risk HPV means that the specimen ? is negative for the f ollowing 14 types tested: ??types 16, 18, 31, 33, 35, ? 39, 45, 51, 52, 56, 5 8, 59, 66, and 68. ??The test is not intended to detect ? low risk HPV types. ? Specimen: HPV Testing - Cytology Liquid Based Prep ? Reviewed by: Jasmyn Downing [facility] ? DWIGHT Cerv-Endocerv LBP ? HPVDO Do HPV Testing ? _ ? Verified date: ??11/21/11 ??HAB ? Verified by: ?Lab Review, Molecular Genetics ? (Electronic Signature) Specimen (Source) Anatomical Collection Method Collection Time Re ceived Time Location / / Volume Laterality 11/15/2011 3:47 PM EST Raegan TEEM PATHOLOGY/CYTOLOGY ORDERABLE S Performing Organization Address City/State/[place] [address] [facility] COMPUTER CUSTOMER SUPPORT SPECIALIST CYTOLOGY FINAL REPORT (11/15/2011 3:47 PM EST) Component Value Ref Test Analysis Performed At [facility] gist Range Method Time Signature Cyber Forensics Analyst Cytology [facility] Final Report ? [facility] ? Provider: ?? RAEGAN ANN ??Pt. Name: ?? SUN LOPEZ ? Acc #: ?[id number] ?Pt. MRN: ?[id number] ? Col Date: ?? 11/15/2011 ?/Sex: ?1970,(40 years),Female ? Rec Date: ?? 11/15/2011 ?LOC: ?5L ? CYTOPATHOLOGY: ??COMPUTER CUSTOMER SUPPORT SPECIALIST ? ---Adequacy--- ? Specimen submitted is satisfactory. ? Endocervical component present. ? ---Cytopathologic Diagnosis--- ? NORMAL ? Negative for Intraepithelial Lesion or Malignancy (NI LM). ? 11/16/11 ?? Screened by: ??SLA ? 11/16/11 ?? Verified by: ??IRA Jose(ASCP), Agus Esquivel. - ? Fingernail Technician ? ---Comment--- ? CORRECTED REPORT (see Comment) ? Correction ? Note: ??Comment has tiburcio lee added. ??There are no other changes to the text of ? this report. ? 11/16/11 13:43 sla ? HPV testing is ordered and result pending. ? ---Clinical Information--- ? HPV Option: ? Concurrent HPV ? Preparation: ?Liquid Based Pap ? Specimen Source: ?Cervical Endocervical LBP ? LMP: ?11/01/2011 ? Hormones?: ?Yes ? Hysterectomy?: ?No ?: ?No ?: ?No ? I.U.D.?: ?No ? Pelvic Radiation: ? No ? Prior COMPUTER CUSTOMER SUPPORT SPECIALIST Therapy?: ? No ? Hist Abnl Pap/Biopsy?: ??No ? Hist of HPV Vaccine?: ?? No ? Hist of Smoking?: ? No ? Hist of ELADIA exposure?: ??No ? Clinical Data, Significant Therapy and Clinical Impre ssion: ? This Pap Test has bee n evaluated with the assistance of the ThinPrep Pap ? Test Imaging System. ? [facility] ? Provider: ?? RAEGAN ANN ??Pt. Name: ?? SUN LOPEZ ? Acc #: ?[id number] ?Pt. MRN: ?[id number] ? Col Date: ?? 11/15/2011 ?/Sex: ?1970,(40 years),Female ? Rec Date: ?? 11/15/2011 ?LOC: ?5L ? CYTOPATHOLOGY: ??COMPUTER CUSTOMER SUPPORT SPECIALIST ? Note: ? The Pap test is a screening test for cervical c ancer with an inherent ? false-negative rate dependent upon several variables. ??For further ? information please contact the [facility] Laboratory. ? Reference: ??Abendrot h CS. ??Soda Fountain Clerk of Pap Smear Results. ??In: ? Makenna BS, Alfa HH, ed. ??The Pap Smear. ??[place]: ??Santhosh, 2002: ? 71-77. Specimen (Source) Anatomical Collection Method Collection Time Re ceived Time Location / / Volume Laterality 11/15/2011 3:47 PM EST Raegan Ann CNM PATHOLOGY/CYTOLOGY ORDERABLE S Performing Organization Address City/State/[place] [address] [facility] Cytopathology Gynecological (11/15/2011 1:58 PM EST) Specimen Anatomical Collection Method Collection Time Receive d Time (Source) Location / / Volume Laterality AP Specimen 11/15/2011 1:58 PM 2 2:12 EST PM EST Narrative CERNER MILLENNIUM - 11/15/2011 2:[address] Specimen requisition ordered. ??Separate Pathology report to follow Marva Ibarra MD PATHOLOGY/CYTOLOGY ORDERABLE S Performing Organization Address City/State/[place] [address] [employer] documented in this encounter Visit Diagnoses Diagnosis Contraception - Primary Unspecified contraceptive management documented in this encounter Care Teams Metal Fitter Relationship Specialty Start Date End Date Andrew Bull MD PCP - General 08/08/10 12/07/12 [place] [address] [place] [address] documented as of this encounter
--- OUTSIDE RECORDS SUMMARY | 2022-04-28 13:56 | XMS_ITS | Encounter Summary ---
:1970 Author Organization [facility] [place] [address] Care Team Providers Name Role Phone Sania Lebron APRN Primary Care Provider Encounter Details Date Type Department Care Team Description 06/27/2020 Telephone Allergy at [facility] [place] [phone] Social History Tobacco Use Types Packs/Day Years Used Date Never Smoker Smokeless Tobacco: Never Used Sex Assigned at Date Recorded Not on file documented as of this encounter Miscellaneous Notes Telephone Encounter - Wanda Grimaldo RN - 06/27/2020 11:34 AM EDT Spoke with patient in regards to her questions about Xolair. She reports that she is currently taking colchicine 0.6mg BID, xyzal 10mg BID, Pepcid 20mg BID, and hydroxyzine 10mg as needed. She has stopped Singulair d/t side effects. She is still getting flare ups of her hives and would like to start the process of getting Xolair. Advised patient to schedule a sooner follow-up appointment with Dr. Mariaelena Bailey so they can go over consent. Patient expressed understanding and call was sent to scheduling. Telephone Encounter - Wanda Grimaldo RN - 06/27/2020 11:34 AM EDT ----- Message from Vera Parr sent at 06/27/2020 8:19 AM EDT ----- [phone]; or cell [phone] would like to start xolair ava as meds are not workng for her urticaria. documented in this encounter Plan of Treatment Not on filedocumented as of this encounter Visit Diagnoses Not on filedocumented in this encounter Care Teams Bolt Sorter Relationship Specialty Start Date End Date Sania Lebron APRN PCP - General 12/08/12 07/19/21 [address] [place] [address] documented as of this encounter
--- OUTSIDE RECORDS SUMMARY | 2022-04-28 13:56 | XMS_ITS | Encounter Summary ---
:1970 Author Organization [facility] [place] [address] Care Team Providers Name Role Phone Sania Lebron APRN Primary Care Provider Encounter Details Date Type Department Care Team Description 06/28/2020 Laboratory Appointment Lab 3L [facility] Medication monitoring encounter; [facility] Chronic [place] [address] Social History Tobacco Use Types Packs/Day Years Used Date Never Smoker Smokeless Tobacco: Never Used Sex Assigned at Date Recorded Not on file documented as of this encounter Plan of Treatment Not on filedocumented as of this encounter Procedures Procedure Name Priority Date/Time Associated Comments Diagnosis THYROID STIMULATING Routine 06/28/2020 12:02 Resu lts for this IMMUNOGLOBULINS PM EDT procedure ar e in the results section. LYME IGG & IGM ANTIBODY Routine 06/28/2020 12:02 Results for this PM EDT procedure are i n the results section. THYROGLOBULIN ANTIBODY Routine 06/28/2020 12:02 R esults for this PM EDT procedure are i n the results section. TISSUE TRANSGLUTAMINASE, Routine 06/28/2020 12:02 Results for this IGA PM EDT procedure are i n the results section. IGA Routine 06/28/2020 12:02 Results for this PM EDT procedure are i n the results section. HELICOBACTER PYLORI Routine 06/28/2020 6:15 Resul ts for this ANTIGEN STOOL AM EDT procedure are in the results section. documented in this encounter Results Lyme IgG & IgM Antibody (06/28/2020 12:02 PM EDT) athologist Signature Lyme Screening Neg Neg [facility] Antibody [facility] Specimen Anatomical Collection Method Collection Time Receive d Time (Source) Location / / Volume Laterality Blood specimen Venous Draw / 06/28/2020 12:02 06/29/20 20 7:17 (specimen) Unknown PM EDT AM EDT Resulting Agency Comment Spec In Lab Rena Chollet ND IMMUNOLOGY ORDERABLES Performing Organization Address City/State/ZIP Code Phon e Number [address] IgA (06/28/2020 12:02 PM EDT) athologist Signature IgA [address] [facility] Specimen Anatomical Collection Method Collection Time Receive d Time (Source) Location / / Volume Laterality Blood specimen Venous Draw / 06/28/2020 12:02 06/28/20 20 (specimen) Unknown PM EDT 12:14 PM EDT Resulting Agency Comment Spec In Lab Rena Chollet ND IMMUNOLOGY ORDERABLES Performing Organization Address City/[facility]/ZIP Code Phon e Number [address] Tissue transglutaminase, IgA (06/28/2020 12:02 PM EDT) athologist Signature TTG IgA Ab 0.2 0.1 - 10.0 [facility] u/ml [facility] Comment: Negative = <7 U/mL Equivocal = 7-10 U/mL Positive = >10 U/mL Specimen Anatomical Collection Method Collection Time Receive d Time (Source) Location / / Volume Laterality Blood specimen Venous Draw / 06/28/2020 12:02 06/29/20 20 7:25 (specimen) Unknown PM EDT AM EDT Resulting Agency Comment Spec In Lab Rena Chollet ND IMMUNOLOGY ORDERABLES Performing Organization Address City/[facility]/ZIP Code Phon e Number [address] Thyroid Stimulating Immunoglobulins (06/28/2020 12:02 PM EDT) P athologist Signature TSI <0.10 <=0.55 IU/L [facility] Specimen Anatomical Collection Method Collection Time Receive d Time (Source) Location / / Volume Laterality Blood specimen Venous Draw / 06/28/2020 12:02 06/29/20 20 7:25 (specimen) Unknown PM EDT AM EDT Resulting Agency Comment Spec In Lab Rena Chollet ND IMMUNOLOGY ORDERABLES Performing Organization Address City/[facility]/ZIP Code Phon e Number [address] Thyroglobulin Antibody (06/28/2020 12:02 PM EDT) athologist Signature Thyroglob Ab <20.0 0.0 - 40.0 [facility] IU/mL [facility] Specimen Anatomical Collection Method Collection Time Receive d Time (Source) Location / / Volume Laterality Blood specimen Venous Draw / 06/28/2020 12:02 06/29/20 20 7:25 (specimen) Unknown PM EDT AM EDT Resulting Agency Comment Spec In Lab Rena Chollet ND CHEMISTRY ORDERABLES Performing Organization Address City/[facility]/ZIP Code Phon e Number [address] Helicobacter pylori Antigen Stool (06/28/2020 6:15 AM EDT) Analysis Performed At Patho logist Time Signature H pylori Stool Negative Negative [facility] LABORATORY Comment: Test performed by immunoassay. H pylori Comment See Comment [facility] Comment: Antimicrobials, proton pump inhibitors a nd bismuth preparations are known to suppress H pylori, and ingestion of thes e prior to H. pylori testing may cause false negative results. Specimen Anatomical Collection Method Collection Time Receive d Time (Source) Location / / Volume Laterality Stool specimen Other / Unknown 06/28/2020 6:15 AM 06/16 (specimen) EDT 12:33 PM EDT Resulting Agency Comment Spec In Lab Rena Chollet ND MICROBIOLOGY - GENERAL ORDER JENNYFER Performing Organization Address City/[facility]/ZIP Code Phon e Number [facility] [place] [address] documented in this encounter Visit Diagnoses Diagnosis Medication monitoring encounter Encounter for therapeutic drug monitorin g Chronic idiopathic urticaria Idiopathic urticaria documented in this encounter Care Teams Lard Renderer Relationship Specialty Start Date End Date Sania Lebron APRN PCP - General 12/08/12 07/19/21 [address] [place] [address] documented as of this encounter
--- OUTSIDE RECORDS SUMMARY | 2022-04-28 13:56 | XMS_ITS | Encounter Summary ---
:1970 Author Organization [facility] [place] [address] Care Team Providers Name Role Phone Sania Lebron APRN Primary Care Provider Reason for Visit Reason Comments Follow-up Encounter Details Date Type Department Care Team Description 03/23/2020 Office Visit Dermatology at [facility] hronic urticaria Usman Daniels MD [address] [place] [address] [facility] [address]-DERMATOLOGY [place], [place] [address] (Wo rk) Social History Tobacco Use Types Packs/Day Years Used Date Never Smoker Smokeless Tobacco: Never Used Sex Assigned at Date Recorded Not on file documented as of this encounter Progress Notes Glory Weinstein MD - 03/23/2020 11:30 AM EDT Images from the original note were not included. DERMATOLOGY - ESTABLISHED PATIENT FOLLOW-UP Date of service: 03/23/2020 Sun Lopez : 1970, 49 y.o. Chief Complaint: Chief Complaint Patient presents with ??? Follow-up HPI: Sun Lopez is a 49 y.o. female last seen by myself on 02/15/2020. Ms. Lopez returns today for follow-up on urticaria intermittently regularly occurring on her arms and legs daily. Since her last appointment, she has been taking Xyzal 5mg BID for maintenance, as well as Pepcid 20mg BID, and Singulair 10mg nightly. When flaring she takes Benadryl every 4-6 hours, which still doesn't seem to control her flares. Her health information technician started her on singulair at night which doesn't seem to have changed anything. Topically, she is using Eucerin moisturizer, CeraVe anti-itch cream. She denies any joint pain, muscle pain, GI upset, or reflux. Relevant Skin History: - Okay to leave detailed message with results? yes - Skin cancer (including type): no ?? Family History: Melanoma: no - Mother had graves disease ?? 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 levocetirizine (XYZAL) 5 mg Tablet Take by mouth. ??? famotidine (Pepcid) 20 mg Tablet Take 1 tablet by mouth 2 times daily. 30 tablet 12 ??? montelukast (Singulair) 10 mg Tablet Take 1 tablet by mouth nightly. 30 tablet 12 ??? diphenhydrAMINE (Benadryl) 25 [...] ethinyl estradiol/drospirenone (OCELLA ORAL) Take by mouth. ??? cetirizine (ZyrTEC) 10 mg Tablet Take 10 mg by mouth daily. No current facility-administered medications for this visit. Allergies: Allergies Allergen Reactions ??? Perphenazine CIS - breathing difficulty Review of Systems: - General: Feels well. - Skin: No other skin concerns. Examination: - Constitutional: Patient was alert, well-appearing and in no noticeable distress. - Skin: Skin examination of the face, back, abdomen, axillae, arms, legs, feet, and hands was normalwith the exception of the findings listed below. Genitalia not examined. - John Champion CCMFrances was present and on standby during my examination. Diagnosis/Skin findings/Assessment/Plan: #. Chronic Urticaria EXAM: on the trunk back, arms, there are scattered pink erythematous wheals with surrounding halo ofblanching. - Chronic urticaria is defined as ongoing urticarial lesions greater than 6 weeks duration. Unfortunately 80-90% of adults with chronic urticaria have no identified cause and remain idiopathic although literature states 35% related to physical urticaria, 5% vasculitic and the remaining 60% either idiopathic, autoimmune or infection related. 50% of patients idiopathic urticaria have spontaneous resolution within 12 months. Given patient history, suspect urticaria secondary to heat from shower versusurticaria secondary to sensitization from PPD in hair dye or component of control pills?. - Patients in whom no trigger or underlying disorder is identified, there is a rate of spontaneous remission at one year of approximately 30 to 50 percent. However, 30% of patients persists beyond 5 years. - Labs ordered today: CBC, CMP, ESR, CRP, CHERYLE, C3, C4, C1q, complement total - Prior workup with Allergy: tryptase, anti-thyroidperoxidase, TSH WNL - May consider H. Pylori testing, antimicrosomal antibodies, progesterone, estrogen allergy tesitng pending work-up above. - May continue hydroxyzine q6h prn, benadryl qhs if not overly sedating - Continue levocetirizine, famotidine, monteleukast, diphenhydramine per allergy - Punch biopsy + DIF for further evaluation of possible urticarial vasculitis Punch Biopsy Procedure Note x2 Punch biopsy: 4 mm Location: Left leg, lesional x2 Suture: 4-0 Proline Patient's consent was obtained. Risk of infection, scarring, nerve damage, pigment change, numbness,incomplete removal, recurrence, bleeding, pain and uncommonly so, allergic reaction to anesthesia were reviewed. -Time Out Performed: Full Name, , and site(s) confirmed with patient -Site was prepped with isopropyl alcohol. Local anesthesia with 1% lidocaine + 1:100,0000 epinephrine. Punch biopsy was obtained and closed with simple interrupted sutures. Specimen(s): Placed in formalin and sent to Pathology for histologic examination. Wound was dressed.Post-op care reviewed: daily gentle cleansing of biopsy site, Vaseline and bandage until healed. Suture Removal in 14 days. RTC: Pending labs results Note initiated by ROSA Kang. I performed the services which were documented by the scribe, and I agree with the accuracy of the documentation in this encounter. Glory Weinstein MD Reviewed and signed by: Glory Weinstein MD Resident in Dermatology [facility] Patient seen and evaluated with staff adjunct english instructor: Skyla Weir MD Section of Dermatology [facility] Skyla Weir MD - 03/23/2020 11:30 AM EDT I directly supervised Dr. Weinstein during this office visit. Dr. Weinstein presented the history and physical exam to me. I then saw and examined this patient with Dr. Weinstein . We reviewed the history and pertinent details and I confirmed the physical findings. I agree with the details of the history and physical exam as documented in Dr. Weinstein's note. SKYLA WEIR MD Staff Physician Glory Weinstein MD - 03/23/2020 11:30 AM EDT Called patient to inform of biopsy results suspicious for early urticarial vasculitis. No answer, sovoicemail left containing results. Recommend patient continue with recently started medications fromAllergy (levocetirizine, monteleukast, famotidine) and follow-up in Dermatology clinic in 2-3 weeks for consideration of indomethacin vs dapsone vs colchicine therapy pending response to above. Routed to receptionist secretary for scheduling Dermatology f/u in 2-3 weeks. documented in this encounter Plan of Treatment Not on filedocumented as of this encounter Procedures Procedure Name Priority Date/Time Associated Comments Diagnosis HC PCH C1Q (COMPL Routine 03/23/2020 12:52 Chronic urticaria R esults for this COMPONENT) PM EDT procedure are i n the results section. HC C-REACTIVE PROTEIN Routine 03/23/2020 12:52 Chronic urticar ia Results for this PM EDT procedure are i n the results section. HEMOGRAM Routine 03/23/2020 12:52 Chronic urticaria Result s for this PM EDT procedure are i n the results section. DIFFERENTIAL, Routine 03/23/2020 12:52 Chronic urticaria Resul ts for this AUTOMATED PM EDT procedure are i n the results section. HC ESR-SEDIMENTATION Routine 03/23/2020 12:52 Chronic urticari a Results for this RATE, BLOOD PM EDT procedure are i n the results section. HC CBC,PLT & AUTO Routine 03/23/2020 12:52 Chronic urticaria DIFF PM EDT COMPLEMENT, TOTAL Routine 03/23/2020 12:52 Result s for this PM EDT procedure are i n the results section. HC COMPLEMENT,C3 Routine 03/23/2020 12:52 Chronic urticaria Re sults for this SERUM PM EDT procedure are i n the results section. HC COMPLEMENT C4, Routine 03/23/2020 12:52 Chronic urticaria R esults for this PLASMA PM EDT procedure are i n the results section. HC ANTINUCLEAR Routine 03/23/2020 12:52 Chronic urticaria Resu lts for this ANTIBODY,SERUM PM EDT procedure are in the results section. HC VENIPUNCTURE Routine 03/23/2020 12:52 Chronic urticaria Res ults for this PM EDT procedure are i n the results section. SPECIMEN TO PATHOLOGY Routine 03/23/2020 12:21 Chronic urticar ia Results for this PM EDT procedure are i n the results section. SURGICAL PATHOLOGY Routine 03/23/2020 12:17 Resul ts for this REPORT PM EDT procedure are i n the results section. SPECIMEN TO PATHOLOGY Routine 03/23/2020 12:17 Chronic urticar ia Results for this PM EDT procedure are i n the results section. documented in this encounter Results Complement, Total (03/23/2020 12:52 PM EDT) P athologist Signature Complement 71 30 - 75 [facility] Total unit/mL [facility] Comment: Test Performed by: [facility] [address] [id number] [address] Supervisor: Emeka Barahona M.D. Ph. D.; CLIA# [id number] Specimen Anatomical Collection Method Collection Time Receive d Time (Source) Location / / Volume Laterality Blood specimen Venous Draw / 03/23/2020 12:52 03/24/20 20 2:14 (specimen) Unknown PM EDT PM EDT Resulting Agency Comment Spec In Lab Glory Weinstein MD CHEMISTRY ORDERABLES Performing Organization Address City/State/[place] [address] Differential, Automated (03/23/2020 12:52 PM EDT) [facility] Neutrophils % 47.8 % [facility] Neutr Abs (ANC) 3.23 1.70 - [facility] 6.10 [facility] x10(3)/[facility] LABORATORY Lymphocytes % 41.8 % [facility] Lymphocytes Abs 2.8 0.9 - 3.2 [facility] x10(3)/[facility] LABORATORY Monocytes % 7.2 % [facility] Monocyte Abs 0.5 0.3 - 0.9 [facility] x10(3)/[facility] LABORATORY Eosinophils % 2.8 % [facility] Eosinophils Abs 0.2 0.0 - 0.4 [facility] x10(3)/[facility] LABORATORY Basophils % 0.1 % [facility] Basophils Abs 0.0 0.0 - 0.1 [facility] x10(3)/[facility] LABORATORY Immature Gran % 0.30 % [facility] Comment: Immature granulocytes(IG's)percentage an d absolute count will include metamyelocytes, myelocytes, and promyelo cytes. Blood smears from CBCs yielding IG's will be scanned manually for concor dance. If this scan disagrees with the automated IG or if promyelocytes are not ed, a manual differential will be performed. Amie Gran Abs 0.02 0.00 - 0.04 x10(3)/[facility] Specimen Anatomical Collection Method Collection Time Receive d Time (Source) Location / / Volume Laterality Blood specimen 03/23/2020 12:52 0 3:13 (specimen) PM EDT PM EDT Resulting Agency Comment Spec In Lab Glory Weinstein MD HEMATOLOGY ORDERABLES Performing Organization Address City/State/[place] [address] Hemogram (03/23/2020 12:52 PM EDT) athologist Signature WBC 6.8 4.0 - 9.5 [facility] x10(3)/[facility] LABORATORY RBC 4.70 4.00 - [facility] 5.21 [facility] x10(6)/[facility] LABORATORY Hemoglobin 13.4 11.7 - [facility] 15.5 gm/dL [facility] Hematocrit 40.6 35.7 [facility] 45.8 % [facility] MCV 86.4 82.6 - [facility] 94.4 [facility] LABORATORY MCH 28.5 27.1 - [facility] 32.0 pg [facility] MCHC 33.0 31.7 - [facility] 35.0 gm/dL [facility] Platelets 336 145 - 357 [facility] x10(3)/[facility] LABORATORY RDWSD 39.9 37.0 - [facility] 46.0 [facility] LABORATORY RDWCV 12.8 11.5 - [facility] 14.1 % [facility] MPV 9.4 7.6 - 12.9 [facility] LABORATORY nRBC % Auto 0.0 % [facility] nRBC Abs Auto 0.000 0.000 - [facility] 0.000 [facility] x10(3)/[facility] LABORATORY Specimen Anatomical Collection Method Collection Time Receive d Time (Source) Location / / Volume Laterality Blood specimen 03/23/2020 12:52 0 3:13 (specimen) PM EDT PM EDT Resulting Agency Comment Spec In Lab Glory Weinstein MD HEMATOLOGY ORDERABLES Performing Organization Address City/State/[place] [address] (ABNORMAL) Comprehensive metabolic panel (non-fasting) (03/23/2020 12:52 PM EDT) P athologist Signature Glucose Lvl 111 65 - 199 [facility] mg/dL [facility] Comment: Diabetes: >=200 mg/dL plus symp toms BUN 9 8 - 18 mg/dL [facility] Creatinine 0.75 0.70 - 1.20 mg/dL [facility] Sodium 139 135 - 145 mmol/L [facility] Potassium 4.1 3.5 - 5.0 mmol/L [facility] Comment: Please note: ??Patients with WBC >100,00 0 may have falsely elevated Potassium levels. ??For accurate Potassium quantif ication in these patients send serum separator tube (gold top) for subsequent determinations. ??Contact the Clinical Chemistry Laboratory if there are any qu estions. Chloride 102 98 - 107 mmol/L [facility] CO2 23 22 - 31 mmol/L [facility] Anion Gap 14 5 - 15 mmol/L [facility] Calcium 9.2 8.5 - 10.5 mg/dL [facility] Total Protein 6.8 6.1 - 8.0 gm/dL [facility] Albumin 4.0 3.2 - 5.2 gm/dL [facility] AST 12 0 - 30 unit/L [facility] ALT 15 0 - 30 unit/L [facility] Alk Phos 65 35 - 105 unit/L [facility] Total Bilirubin <0.2 (L) 0.2 - 1.3 mg/dL [facility] Estimated GFR 95 >=60 mL/min/1.73 m?? [facility] Comment: The eGFR was calculated using the CKD-EP I equation. As with all creatinine based estimates of kidney function, eGFR values calculated with the CKD-EPI equation are not accurate in patients wi th acute kidney failure, extremes of body mass or the acutely ill. http://[employer]/[facility] eGFR 110 >=60 mL/min/1.73 m?? [facility] Comment: The eGFR was calculated using the CKD-EP I equation. As with all creatinine based estimates of kidney function, eGFR values calculated with the CKD-EPI equation are not accurate in patients wi th acute kidney failure, extremes of body mass or the acutely ill. http://[employer]/[facility] Specimen Anatomical Collection Method Collection Time Receive d Time (Source) Location / / Volume Laterality Blood specimen 03/23/2020 12:52 0 3:19 (specimen) PM EDT PM EDT Resulting Agency Comment Spec In Lab Skyla Weir MD CHEMISTRY ORDERABLES Performing Organization Address City/[facility] Phon e Number [address] C4 Complement (03/23/2020 12:52 PM EDT) P athologist Signature C4 Complement 32 10 - 40 [facility] mg/dL [facility] Specimen Anatomical Collection Method Collection Time Receive d Time (Source) Location / / Volume Laterality Blood specimen 03/23/2020 12:52 0 3:18 (specimen) PM EDT PM EDT Resulting Agency Comment Spec In Lab Skyla Weir MD CHEMISTRY ORDERABLES Performing Organization Address City/[facility]/ZIP Code Phon e Number [address] C3 Complement (03/23/2020 12:52 PM EDT) P athologist Signature C3 Complement 161 90 - 180 [facility] mg/dL [facility] Specimen Anatomical Collection Method Collection Time Receive d Time (Source) Location / / Volume Laterality Blood specimen 03/23/2020 12:52 0 3:18 (specimen) PM EDT PM EDT Resulting Agency Comment Spec In Lab Skyla Weir MD CHEMISTRY ORDERABLES Performing Organization Address City/[facility]/ZIP Code Phon e Number [address] C1q Complement (03/23/2020 12:52 PM EDT) athologist [facility] Complement C1q 20 12 - 22 [facility] mg/dL [facility] Comment: ADDITIONAL INFORMATIO N This test was developed and its performa nce characteristics determined by [facility] in a manner co nsistent with CLIA requirements. This test has not bee n cleared or approved by the U.S. Food and Drug Admin istration. Test Performed by: [facility] [address] [place] [address] [address] Supervisor: Emeka Barahona M.D. Ph. D.; CLIA# [id number] Specimen Anatomical Collection Method Collection Time Receive d Time (Source) Location / / Volume Laterality Blood specimen 03/23/2020 12:52 0 4:07 (specimen) PM EDT PM EDT Resulting Agency Comment Spec In Lab Skyla Weir MD CHEMISTRY ORDERABLES Performing Organization Address City/State/ZIP Code Phon e Number [address] CHERYLE ([facility]/P) (03/23/2020 12:52 PM EDT) athologist [facility] CHERYLE Neg Neg [facility] Comment: Anti-nuclear antibodies were te sted using an indirect immunofluorescent assay. Specimen Anatomical Collection Method Collection Time Receive d Time (Source) Location / / Volume Laterality Blood specimen 03/23/2020 12:52 0 4:24 (specimen) PM EDT PM EDT Resulting Agency Comment Spec In Lab Skyla Weir MD IMMUNOLOGY ORDERABLES Performing Organization Address City/State/[place] [address] (ABNORMAL) CRP, acute inflammation (03/23/2020 12:52 PM EDT) athologist Signature CRP 7.4 (H) <=4.9 mg/L [facility] Specimen Anatomical Collection Method Collection Time Receive d Time (Source) Location / / Volume Laterality Blood specimen 03/23/2020 12:52 0 3:19 (specimen) PM EDT PM EDT Resulting Agency Comment Spec In Lab Skyla Weir MD CHEMISTRY ORDERABLES Performing Organization Address City/[facility]/ZIP Code Phon e Number [address] Sedimentation rate (03/23/2020 12:52 PM EDT) P athologist Signature Sed Rate 17 2 - 37 [facility] mm/hr [facility] Comment: Effective August 26, 2019 new capillar y photometric technology has resulted in a change in reference ranges. It is r ecommended that each ESR result be reviewed with its own age appropriate re ference range. Specimen Anatomical Collection Method Collection Time Receive d Time (Source) Location / / Volume Laterality Blood specimen 03/23/2020 12:52 0 3:13 (specimen) PM EDT PM EDT Resulting Agency Comment Spec In Lab Skyla Weir MD HEMATOLOGY ORDERABLES Performing Organization Address City/[facility]/ZIP Code Phon e Number [address] Specimen to Pathology (03/23/2020 12:21 PM EDT) Specimen Anatomical Collection Method Collection Time Receive d Time (Source) Location / / Volume Laterality AP Specimen 03/23/2020 12:21 03/23/2020 3:31 PM EDT PM EDT Narrative [facility] - 03/23/2020 3:32 PM EDT Specimen requisition ordered. ??Separate Pathology report to follow Resulting Agency Comment Spec In Lab Skyla Weir MD PATHOLOGY/CYTOLOGY ORDERABLE S Performing Organization Address City/[facility]/[place] [address] Surgical Pathology Report (03/23/2020 12:17 PM EDT) Component Value Ref Test Analysis Performed At Patholo gist Range Method Time Signature Surgical [id number] ? Location: [facility] The signing pathologist has (i) examined the relevant preparation(s) for the [facility] specimen(s) and (ii) rendered or confirmed the diagnosis(es) . HOSPITAL LABORATORY . ? Addendum ADDENDUM DISCUSSION B - Left leg, skin punch biopsy: Final Impression: - Subtle superficial perivascular immunoreactivity Specimen Processing A 4 mm punch biopsy was rece ived in a tube of Kirill ?? 's transport medium. Frozen sections, cut at 4 microns, were stained by direct immunofluorescence (IF). Sections were treated with fluoresce in labeled antibodies to the following immunoreactants: IgG, IgA, IgM, fibrinogen a nd C3. The antibody to albumin is used as a negative control. Immune Deposits, Objective Findings This biopsy includes skin wi th epidermis and dermis. Direct IF studies of this skin biopsy specimen reveal subt le superficial perivascular immunoreactivity of C3, fibrinogen and the immunogl obulins tested, distinct from the immunoreactivity seen in the negative control slide from the same preparation. Electronically signed by: ??Nathaniel Villasenor MD Verified: ??04/04/2020 ?Dermatopathologist Performed at: ??-[facility] Dept. of Pathology, [place], [place] ?Surgic al Pathology DIAGNOSIS A - Left leg, skin punch biopsy: - Superficial perivascular i nflammation with neutrophils, eosinophils, extravasated erythrocytes and rare focal karyorrhectic debris, roshan picious for urticarial vasculitis (see discussion) B - Left leg, skin punch biopsy: - Subtle superficial perivas cular immunoreactivity (see discussion and addendum for details) Electronically signed by: ??Nathaniel Villasenor MD Verified: ??03/28/2020 ?Dermatopathologist Performed at: ??-[facility] Dept. 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 The findings are not at all those of a developed ?leukocytoclastic vasculitis (LCV). But, regarding urticarial v asculitis ?? compared with typical LCV, the histological findings tend to be subtle and are easily overlooked [1]. Urticarial vasculitis appea rs as a continuum, ranging from urticaria with very mild vascular injury to tamera ne crotizing vasculitis [1]; the morphologic findings cause suspicion for the former. The direct immunofluorescenc e (DIF) studies have subtle features (see addendum for details), which can be сергей factual and nonspecific. But, somewhat similar findings have been documented in timothy e cases of hypocomplementemic urticarial vasculitis [2]. The possibility of hyp ocomplementemic urticarial vasculitis is best evaluated clinically and with the aid of serologic studies, when marina cated. . DISCUSSION CITATIONS 1) ??Jessica Wang, Vani Omer, Cesario Stewart's Pathol ogy of the Skin with Clinical Correlations. 4th ed. [employer]: [employer]. 2012. pp. [phone]. 2) ??Brian Dorman, Haja tavera, and Mirza Arellano. Urticarial vasculitis: a histopatholog ic and clinical review of 72 cases. Journal of the [place] [employer] Dermat[employer] 26.3 (1992): 441-448. MICROSCOPIC DESCRIPTION A - Examination of multiple levels of the biopsy reveals ?basket-woven ??orthokeratosis overlying a largely unremarkable epidermis with mildly bl unted rete. ??The superficial dermis as a mil dly dense perivascular and interstitial lymphocytic infiltrate with associated eosinophils and neutrophils. ??In multiple foci, a significant population of n eutrophils is present in close association with the venule barron, and many intr amural neutrophils are found. ??Prominent mural fibrin deposition is not seen in t he sections examined. ??In some regions of the superficial reticular dermis, there are scattered perivascular and interstitial basophilic granules, without a signifi cant amount of cytoplasm, smaller than the adjacent lymphocyte nuclei. ??They a re preferentially associated with vessels that have intramural neutrophils and lymphocytes. ??Associated extravasated erythrocytes are identified. Fungal microorg anisms are not identified, as confirmed by interpretation of a PAS stain. ADDITIONAL STUDIES A - ??Interpretation of mult iple slide sections from throughout the entire specimen confirms the diagnosis abov e. Fungal microorganisms are not identified, as confirmed by interpretation of a PAS stain. This case was also reviewed by an additional intradepartmental dermatopathologists for consensus assessm ent. SPECIMEN(S) SUBMITTED A - Left leg, skin punch (1) B - Left leg, skin punch (1) CLINICAL INFORMATION 49-year-old with five month history of urticaria: DDX: Urticarial vasculitis vs chronic urticaria SPECIMEN PROCESSING A - Labeled/Fixative: Left leg lesional, formalin. Quantity/Size: ??Single, 0.4 cm diameter. Tissue Description: Nonorien steph, barker-white punch biopsy of skin and subcutaneous tissue, excised to a depth of 0.4 cm. Sections/Processing: Bisected and entirely submitted in 1 cassette labeled A1. B - Labeled/Fixative: Left leg lesional (DIF), Janie trans port medium. Quantity/Size: ??Single, 0.4 cm diameter. Tissue Description: Punch bi opsy of pink-johnson skin and subcutaneous tissue, excised to a depth of 0.4 cm. Sections/Processing: The specimen is bisected. Submitted for direct immunofluorescence studies. ??shb Specimen (Source) Anatomical Collection Method Collection Time Re ceived Time Location / / Volume Laterality 03/23/2020 12:17 PM EDT Glory Weinstein MD PATHOLOGY/CYTOLOGY ORDERABLE S Performing Organization Address City/[facility]/[place] [address] Specimen to Pathology (03/23/2020 12:17 PM EDT) Specimen Anatomical Collection Method Collection Time Receive d Time (Source) Location / / Volume Laterality AP Specimen 03/23/2020 12:17 03/23/2020 3:31 PM EDT PM EDT Narrative [facility] - 03/23/2020 3:32 PM EDT Specimen requisition ordered. ??Separate Pathology report to follow Resulting Agency Comment Spec In Lab Skyla Weir MD PATHOLOGY/CYTOLOGY ORDERABLE S Performing Organization Address City/[facility]/[place] [address] documented in this encounter Visit Diagnoses Diagnosis Chronic urticaria Other specified urticaria documented in this encounter Care Teams Spinneret Cleaner Relationship Specialty Start Date End Date Sania Lebron APRN PCP - General 12/08/12 07/19/21 [address] [place] [address] documented as of this encounter
--- OUTSIDE RECORDS SUMMARY | 2022-04-28 13:56 | XMS_ITS | Encounter Summary ---
:1970 Author Organization [facility] Address [address] [place] [address] Care Team Providers Name Role Phone Sania Lebron APRN Primary Care Provider Encounter Details Date Type Department Care Team Description 05/02/2018 Hospital Encounter Mammography at [facility] Vi, Visit for screening [address] [facility] SaniaLAUREL lee mammogram [address] [place] [address] [phone] Social History Tobacco Use Types Packs/Day Years [...] Diagnosis Comme nts MAMMO SCREENING CAD Routine 05/02/2018 9:13 AM Visit for pranav cabrera Results for this AND ARTUR BILATERAL EDT mammogram procedure are in the results section. documented in this encounter Results Mammo Screening Cad and Artur Bilateral (05/02/2018 9:13 AM EDT) Anatomical Region Laterality Modality Breast Bilateral Mammography Specimen (Source) Anatomical Location Collection Method / Collectio n Time Received Time / Laterality Volume Narrative 05/02/2018 9:23 AM EDT BILATERAL MAMMOGRAPHY REASON FOR EXAM: [...] CONCLUSION: No mammographic evidence of malignancy. RECOMMENDATION: The [employer] and The Society of Breast Imaging recommend annual screenin g beginning at age 40 for the general female population. Screening dave uld continue as long as a woman is in good health and is expected to live 1 0 more years or longer. All women should be familiar with the known benefi ts, limitations, and potential harms linked to breast cancer screening. They should also know how their breasts normally look and feel and repor t any breast changes to a health care provider right away. Some women - b ecause of their family history, a genetic tendency, or certain other facto rs - should be screened with MRIs along with mammograms. (The number of wo men who fall into this category is very small.) The patient and health care provider should discuss the patient history and decide if earlier sc reening and breast MRI are appropriate. A result letter has been sent to this ariel marquez by the [facility]. BIRADS CATEGORY 1: NEGATIVE Sania Lebron APRN IMG MAMMO ORDERABLES documented in this encounter Visit Diagnoses Diagnosis Visit for screening mammogram Other screening mammogram documented in this encounter Care Teams Devulcanizer Operator Relationship Specialty Start Date End Date Sania Lebron APRN PCP - General 12/08/12 07/19/21 [address] [place] [address] documented as of this encounter
--- OUTSIDE RECORDS SUMMARY | 2022-04-28 13:56 | XMS_ITS | Encounter Summary ---
:1970 Author Organization [place] [address] Care Team Providers Name Role Phone Sania Lebron APRN Primary Care Provider Encounter Details Date Type Department Care Team Description 02/25/2020 Telephone Dermatology at [facility] Glory Weinstein MD [address] [place] [address] [facility]-DERMATOLOGY [phone] [place], [place] [address] (Wo rk) Social History Tobacco Use Types Packs/Day Years Used Date Never Smoker Smokeless Tobacco: Never Used Sex Assigned at Date Recorded Not on file documented as of this encounter Miscellaneous Notes Telephone Encounter - Jamila Viveros - 02/25/2020 11:[address] Corinna Garsia had an appointment on 02/15/20 at 9:30am, and has follow up appointment on 03/23/20 at 11:30am. Sun stated that she recently saw an Summer Law Associate at [facility] in case you would like to review the office note since she was prescribed a different medication. If you have any questions please call Sun at [phone]. Thank you, Jamila Telephone Encounter - Pao Jain - 02/25/2020 8:47 AM EDT Left msg to schedule 4-6 week follow up documented in this encounter Plan of Treatment Not on filedocumented as of this encounter Visit Diagnoses Not on filedocumented in this encounter Care Teams Senior Marketing Manager Relationship Specialty Start Date End Date Sania Lebron APRN PCP - General 12/08/12 07/19/21 [address] [place] [address] documented as of this encounter
--- OUTSIDE RECORDS SUMMARY | 2022-04-28 13:56 | XMS_ITS | Encounter Summary ---
:1970 Author Organization [facility] [place] [address] Care Team Providers Name Role Phone Sania Lebron APRN Primary Care Provider Encounter Details Date Type Department Care Team Description 12/11/2012 External Results Otolaryngology at [facility] Gal Figueroa, [facility] [place] [address] [facility] [phone] AUDIOLOGY DEPT. [place], [place] [address] Social History Tobacco Use Types Packs/Day Years Used Date Never Smoker Sex Assigned at Date Recorded Not on file documented as of this encounter Plan of Treatment Not on filedocumented as of this encounter Procedures Procedure Name Priority Date/Time Associated Diagnosis Comme nts AUDIOLOGY SCAN Routine 12/08/2012 documented in this encounter Results Scan Doc: Audiology (12/08/2012) Narrative This result has an attachment that is no t available. Gal Figueroa [facility] MEDIA MGR SCAN EXT ORDR/RSLT documented in this encounter Visit Diagnoses Not on filedocumented in this encounter Care Teams Software Consultant Relationship Specialty Start Date End Date Sania Lebron APRN PCP - General 12/08/12 07/19/21 [address] [place] [address] documented as of this encounter
--- OUTSIDE RECORDS SUMMARY | 2022-04-28 13:56 | XMS_ITS | Encounter Summary ---
:1970 Author Organization [address] [place] [address] Care Team Providers Name Role Phone Sania Lebron APRN Primary Care Provider Encounter Details Date Type Department Care Team Description 12/08/2012 Office Visit Audiology at [facility] Olivia Dong, [facility] [place] [address] Examination of ears [facility] Gal Figueroa, [facility] [place] [address] and hearing ([address] Dx) [place] [id number] Social History Tobacco Use Types Packs/Day Years Used Date Never Smoker Sex Assigned at Date Recorded Not on file documented as of this encounter Progress Notes Gal Figueroa, ALINE - 12/08/2012 9:07 AM EDT AUDIOLOGY SECTION [place] AUDIOLOGIC EVALUATION HISTORY: Sun Lopez, a 42 y.o. female, was seen on 12/08/2012 for an audiologic evaluation. Her has recently noted that she wants the television louder than he does. She notes that she has to concentrate more when communicating in noisy environments. She has worked her entire career in noisy medical labs and is concerned that it may have affected her hearing. She denies other auditory/aural symptoms.. EVALUATION: Please refer to the scanned audiogram listed under ??? Chart Review?? and Scan Doc for detailedresults. Impressions: RE: Thresholds are within normal limits for pure tones and speech. Speech recognition is excellent at the level of a whisper and at a very loud level. LE: Thresholds are within normal limits for pure tones and speech. Speech recognition is excellent at the level of a whisper and at a very loud level. Tympanometry: Tympanograms indicate normal middle ear pressure and mobility in both ears. Auditory function appears to be entirely normal. RECOMMENDATION: Audiologic reevaluation as needed. Edgar Stanford, -[facility] Clinical Re Dye Hand [facility] [place] [address] [address] ; [phone] (fax) [email or web address] documented in this encounter Plan of Treatment Not on filedocumented as of this encounter Visit Diagnoses Diagnosis Examination of ears and hearing - Primar y Other examination of ears and hearing documented in this encounter Care Teams Lead Tank Mechanic Relationship Specialty Start Date End Date Sania Lebron APRN PCP - General 12/08/12 07/19/21 [address] [place] [address] documented as of this encounter
--- OUTSIDE RECORDS SUMMARY | 2022-04-28 13:56 | XMS_ITS | Encounter Summary ---
:1970 Author Organization [facility] [place] [address] Care Team Providers Name Role Phone Sania Lebron APRN Primary Care Provider Encounter Details Date Type Department Care Team Description 05/03/2020 Telephone Dermatology at [facility] Glory Weinstein MD [address] [place] [address] [facility]-DER[facility]Y [phone] [place], [place] [address] (Wo rk) Social History Tobacco Use Types Packs/Day Years Used Date Never Smoker Smokeless Tobacco: Never Used Sex Assigned at Date Recorded Not on file documented as of this encounter Miscellaneous Notes Telephone Encounter - Glory Weinstein MD - 05/05/2020 8:06 AM EDT Returned patient's call. Recommended f/u in clinic to further discuss treatment options for chronic urticaria. Forwarded to hay buckler for scheduling. Telephone Encounter - Barbie Oconnor - 05/03/2020 9:12 AM EDT Received phone call from Sun Lopez. She would like to know what will be done now that her case hasbeen brought to grand rounds. Please call her at [phone]. documented in this encounter Plan of Treatment Not on filedocumented as of this encounter Visit Diagnoses Not on filedocumented in this encounter Care Teams Marketing Planning Manager Relationship Specialty Start Date End Date Sania Lebron APRN PCP - General 12/08/12 07/19/21 [address] [place] [address] documented as of this encounter
--- OUTSIDE RECORDS SUMMARY | 2022-04-28 13:56 | XMS_ITS | Encounter Summary ---
:1970 Author Organization [facility] [place] [address] Care Team Providers Name Role Phone Sania Lebron APRN Primary Care Provider Reason for Visit Reason Comments Anxiety Depression Encounter Details Date Type Department Care Team Description 06/10/2019 Emergency Emergency Department Tray Ponce djustment disorder Vanessa York MD with [facility] [place] [address] [place] [address] [phone] Social History Tobacco Use Types Packs/Day Years Used Date Never Smoker Smokeless Tobacco: Never Used Sex Assigned at Date Recorded Not on file documented as of this encounter Last Filed Vital Signs Vital Sign Reading Time Taken Comments Blood Pressure 132/88 06/10/2019 9:56 AM EDT Pulse 63 06/10/2019 9:56 AM EDT Temperature 37.1 ??C (98.8 ??F) 06/10/2019 9:56 AM EDT Respiratory Rate 16 06/10/2019 9:56 AM EDT Oxygen Saturation 100% 06/10/2019 9:56 AM EDT Inhaled Oxygen Concentration - - Weight 83.9 kg (185 lb) 06/10/2019 8:39 AM EDT Height 165.1 cm (5' 5) 06/10/2019 8:39 AM EDT Body Mass Index 30.79 06/10/2019 8:39 AM EDT documented in this encounter Discharge Instructions Discharge InstructionsMan Kim MD - 06/10/2019 9:49 AM EDT You were seen in the emergency department for an acute increase in your anxiety, due to significant stressors at work. As you felt improvement following discussion with the physician in the ED, no additional medication was given. We discussed your episodes in the past two weeks of suicidal thoughts, and you noted that you did not feel this way at this time. Please return to the Emergency Department for immediate psychiatric evaluation, if you feel these suicidal thoughts again. You can return to work in three days, or sooner if able. A letter has been provided to you. You havean appointment scheduled with your therapist, Cornelia Falk, on June 22. Given your stressors at work, you will likely benefit from continued therapy to discuss the issues at work. In addition, please follow-up with your PCP in one week, to discuss possible modifications to your anti-depressant medication, with the goal to decrease your usage of the clonazepam. AttachmentsThe following attachments cannot be sent through Care Everywhere. Adjustment Disorder (Senegalese)documented in this encounter Medications at Time of Discharge Medication Sig Dispensed Refills Start Date End Date clonazePAM (KLONOPIN) 0.5 Take 0.5 mg by mouth 0 mg Tablet 2 times daily as needed for Anxiety. ethinyl Take by mouth. 0 estradiol/drospirenone (OCELLA ORAL) FLUoxetine (PROZAC) 40 mg Take 60 mg by mouth 0 12/01/2020 Capsule daily. documented as of this encounter ED Notes Tray Ponce MD - 06/10/2019 9:43 AM EDT Brief Attending Note I cared for the patient with the resident physician. Please see Dr. Kim's note, associated with the encounter, for more details. HPI: Sun Lopez is a 48 y.o. who presents to the ED with a chief complaint of anxiety related to increased work stressors. The patient has a history of depression and anxiety currently treated with Prozac and clonazepam. She recently started Prozac several months ago, when her prior antidepressant startedhaving decreased efficacy. Prozac and clonazepam are prescribed by her primary care practitioner. She also has a therapist, with an appointment for June 19. 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 She states she is concerned about job security. 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 She reports that another of her supervisors is supportive, as is her . She states that she has been coping fairly well however with increased anxiety and irritability. She states that she did not sleep well last night due to increased stress despite taking her regular Klonopin which she takes every morning and nightly. She did not feel that she could go to work due to poor sleep and anxiety today. Her called the primary care office as well as her work, and stated that he was taking her to the emergency department for further assistance with her symptoms. She denies fever, infectious symptoms, thyroid disorder, cardiac or lung problems. No history of focalneurologic deficits. Appetite is unchanged and she is tolerating p.o. No changes to urine or stool. She denied suicidal or homicidal ideation she denies previous inpatient psychiatric admissions. Denies hallucinations. Has significant alcohol, drug or tobacco abuse. She states that primarily she is see crissy strategies for reducing stress/anxiety in the short and long-term. She does not feel that she needs inpatient hospitalization for her symptoms. She reports that her anxiety was improved after taking her morning clonazepam today. She presented today with her who confirmed the symptoms and history as detailed above. ROS: Pertinent positives and negatives are included in the history of present illness, otherwise 10 systems are reviewed and negative Allergies: Allergies Allergen Reactions ??? Perphenazine CIS - breathing difficulty Past Medical, Past Surgical, Family/Social History: reviewed in chart. Patient Vitals for the past 8 hrs: BP Temp Temp src Pulse Resp SpO2 Height Weight 06/10/19 0839 (!) 148/94 36.6 ??C (97.9 ??F) Oral 64 18 97 % 165.1 cm (5' 5) 83.9 kg (185 lb) Gen: well appearing, NAD HENT: atraumatic, OP clear, mmm Pulm: CTA shilpi, no respiratory distress Card: RRR Abd: soft, nt Skin: warm and dry Neuro: speech fluent, no obvious deficit MS: No obvious deformity Psych: Anxious appearing. Good eye contact. Alert and oriented x4. Good insight regarding her situation. Assessment: 48 y.o. female presenting with signs and symptoms of anxiety related to work stressors. She reports compliance with her home psychotropic medications and anxiolytics. She was not suicidal today. She did not show evidence of decompensated panic/anxiety. She had good insight regarding her situation. She agrees to continue taking her medications, to call her regular provider to discuss dose adjustments today, and to follow-up with her therapist and attempt to schedule an appointment prior to June 19 if possible. She agrees with strict return precautions for worsening or decompensated symptoms. Do not feel she requires psychiatric evaluation here today considering the circumscribed scenario leading to her symptom exacerbation, her level of insight, and her pharmacologic and outpatient therapies that are already in place, and the fact that she is not acutely decompensated or suicidal. She expressed understanding the plan as detailed above and strict return precautions. She was provideda work note with instructions to return to work in 3 days or sooner if she feels able. She agrees that this should provide her a buffer for her mental health. Nothing to suggest alternative organic cause for her symptoms today. She was discharged in stable overall condition. Tray Ponce MD 06/25/19 0247 Man Kim MD - 06/10/2019 9:17 AM EDT Sun Lopez is an 48 y.o. female who presents to the ED with: Chief Complaint Patient presents with ??? Anxiety ??? Depression HPI Sun Lopez is a 48 y.o. female with a PMH significant for anxiety and depression who presents to the Emergency Department with an acute increase in anxiety secondary to stress at work. 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 She notes that there has been increased focus on her performance, with reported bullying and intimidation. This has put a significant strain on her, as she has felt a decrease in her concentration and ability to enjoy things at home. This morning, she noted a significant episode of crying with increased anxious feelings. She talked to one of her superiors, who noted that she should see someone and take the day off. As her therapist is currently on vacation, she opted to present to the emergency department to be seen. She endorses significant insomnia, secondary to anxious thoughts keeping her awake. She endorses suicidal ideations over the past two weeks, most frequently one week ago. She denies formulation of a plan, and notes that she ceases thinking about it when she notes that her family would be left alone. She was recently started on Prozac six months ago, following a depressive episode, with good response. Additionally, she has Clonazepam BID, as needed for anxiety. She notes that she has been taking them BID scheduled for the past two weeks due to increased anxiety. She endorses mild nausea and headache. She denies dizziness, lightheadedness, intolerance to heat/cold, palpitations, chest pain, shortness of breath, abdominal pain, or changes in bladder/bowel. She denies taking any medications or substances in excess. She denies tobacco or illicit drug use. Review of Systems: Review of Systems Constitutional: Positive for fatigue. Negative for appetite change, diaphoresis and fever. HENT: Negative for congestion, hearing loss, sinus pressure and sinus pain. Eyes: Negative. Respiratory: Negative for cough, chest tightness and shortness of breath. Cardiovascular: Negative for chest pain, palpitations and leg swelling. Gastrointestinal: Positive for nausea. Negative for abdominal pain, blood in stool, constipation, diarrhea and vomiting. Endocrine: Negative for cold intolerance, heat intolerance and polyuria. Genitourinary: Negative for dysuria, flank pain, hematuria and urgency. Musculoskeletal: Negative for arthralgias, myalgias, neck pain and neck stiffness. Skin: Negative for wound. Neurological: Positive for headaches. Negative for dizziness, syncope, weakness, light-headedness and numbness. Hematological: Negative. Psychiatric/Behavioral: Positive for decreased concentration, sleep disturbance and suicidal ideas. Negative for hallucinations and self-injury. The patient is nervous/anxious. Patient Vitals for the past 8 hrs: BP Temp Temp src Pulse Resp SpO2 Height Weight 06/10/19 0839 (!) 148/94 36.6 ??C (97.9 ??F) Oral 64 18 97 % 165.1 cm (5' 5) 83.9 kg (185 lb) I have reviewed the vital signs, which demonstrates mild hypertension Physical Exam: Physical Exam General: Well appearing woman, composed during the interview, able to relate her history Neuro: CN 2-12 intact, 5/5 strength in b/l upper/lower extremities Awake, alert and oriented to person place or time HEENT: PERRLA, EOMI, sclera anicteric, mucous membranes moist Cardiac: Regular rate and rhythm, normal S1/S2, no murmurs, rubs or gallops Respiratory: Clear to auscultation, no wheezes, rhonchi or rales Abdomen: Soft, non-tender, non-distended, normal active bowel sounds Extremities: No edema or erythema DP/PT pulses 2+ ED Course: - Patient was evaluated and discussed with Dr. Ponce - Medications, allergies, past medical history, surgical history, family history, and social historywere reviewed Medications - No data to display Assessment and Plan: MDM: 48 y.o. female who presents for anxiety Assessment:48 y.o. female who comes in with an acute increase in anxiety following stressors at work. With the acute increase in reported intimidation at work, the patient's symptoms have been steadilyincreasing over the past two weeks. This is likely an episode of adjustment disorder in the setting of previously diagnosed anxiety and depression. Patient's suicidal ideations are infrequent, and without plan, typically halted when thinking of her family. As the patient has already started to improvesince coming to the ED, treatment was deferred, as she had taken a clonazepam prior to arrival. Patient has a scheduled appointment with her therapist, Cornelia Falk, on June 22, and will follow-up with her at that time. Patient was given instructions to follow-up with her PCP for likely needto increase Prozac, with goal to reduce clonazepam PRN usage. Patient was told to return to the ED should her suicidal ideations return, with increased urgency if she develops a plan. Plan: - Please return to work in three days, or sooner if able. - Follow up with Cornelia Falk on June 22 - Please make an appointment with your PCP in the next week, to adjust Prozac dosage with the goal to reduce clonazepam usage - Return precautions were verbally discussed with the patient to return for immediate psychiatric evaluation, if she feels suicidal thoughts again. The patient expressed understanding that they could come back to the ED at any time and agreed to the follow-up plan. Man Kim MD Resident 06/10/19 0949 documented in this encounter Miscellaneous Notes ED Triage - Klaudia Ruano RN - 06/10/2019 8:42 AM EDT Pt with increasing life stressors which is exacerbating her depression and anxiety. Unable to sleep last night. Feels sick to her stomach. Has been on Prozac for 6 months and took her Clonazepam this morning without relief. Has had suicidal thoughts in the past, but not currently. Accompanied by her . Pt states that she already feels some relief by coming to the ED. Pt contracts for safety. documented in this encounter Plan of Treatment Not on filedocumented as of this encounter Visit Diagnoses Diagnosis Adjustment disorder with anxiety documented in this encounter Care Teams Professional Development Manager Relationship Specialty Start Date End Date Sania Lebron APRN PCP - General 12/08/12 07/19/21 [address] [place] [address] documented as of this encounter
--- OUTSIDE RECORDS SUMMARY | 2022-04-28 13:56 | XMS_ITS | Encounter Summary ---
:1970 Author Organization [place] [address] Care Team Providers Name Role Phone Michelle Espinoza MD Primary Care Provider Encounter Details Date Type Department Care Team Description 06/24/2020 Community Orders External Chollet, Rena, Urticaria, chronic [phone] [address] [place], [place] [address] Social History Tobacco Use Types Packs/Day Years Used Date Never Smoker Smokeless Tobacco: Never Used Sex Assigned at Date Recorded Not on file documented as of this encounter Plan of Treatment Not on filedocumented as of this encounter Visit Diagnoses Diagnosis Urticaria, chronic Other specified urticaria documented in this encounter Care Teams Paradi Tender Relationship Specialty Start Date End Date Michelle Espinoza MD PCP - General Family Medicine 07/20/[address] [facility] [address] [place], [place] [id number] documented as of this encounter
--- OUTSIDE RECORDS SUMMARY | 2022-04-28 13:56 | XMS_ITS | Encounter Summary ---
:1970 Author Organization [facility] [place] [address] Care Team Providers Name Role Phone Sania Lebron APRN Primary Care Provider Reason for Referral Allergy Testing (Routine) - Specialty Diagnoses / Procedures Referred By Contact Refer red To Contact Allergy Diagnoses Chronic urticaria Glory Weinstein MD [facility] 6m [facility] D R [facility] [address] [place] [address] Referral ID Status Reason Start Date Expiration Date Visits V isits Requested Authorized [id number] Consult, Test 02/15/2020 02/14/2021 12 12 & Treat [facility] PCP Updated and/or Approved Reason for Visit Reason Comments Rash Encounter Details Date Type Department Care Team Description 02/15/2020 [facility] Usman Daniels MD [address] [place] [address] [facility]-DER[facility] [place], [place] [address] (Wo rk) Social History Tobacco Use Types Packs/Day Years Used Date Never Smoker Smokeless Tobacco: Never Used Sex Assigned at Date Recorded Not on file documented as of this encounter Progress Notes Glory Weinstein MD - 02/15/2020 9:30 AM EDT Images from the original note were not included. DERMATOLOGY - NEW PATIENT NOTE Date of service: 02/15/2020 Sun Lopez : 1970, 49 y.o. Chief Complaint: Chief Complaint Patient presents with ??? Rash HPI: Ms. Lopez is a 49 y.o. female self-referred with with a rash which started in November 2019. Rash history: - Location: starting on her lower back and spread to involve her neck, shoulders, torso, feet, hands, arms, sometimes legs - Timing (night, day, intermittent, constant): evanescent, recurs daily, individual lesions come andgo within 1 day - Symptoms: pruritic - Treatments: prednisone, triamcinolone. Rash cleared with prednisone but recurred, triamcinolone improved symptoms but did not. Also using CeraVe anti itch cream - Exacerbating factors: heat possibly; patient notes dying her hair shortly before onset with some pruritus of her scalp, however, reports continued symptoms for months without dying her hair. - What makes it better: benadryl, hydroxyzine - Changes in medications: Patient changed from Ocella branded OCP form to generic version - Changes in skin care products: no - Recent travel: no - Has this ever happened before: no - Recent illness: November 19 she felt like she was coming down with some kind of virus, her lymph nodes in the back of her head were swollen and she felt mildly ill, though patient denies cough, runny nose, congestion or other URI symptoms. Relevant Skin History: - Okay to leave detailed message with results? 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 FLUoxetine (PROZAC) 40 mg Capsule Take 40 mg by mouth daily. ??? clonazePAM (KLONOPIN) 0.5 mg Tablet Take 0.5 mg by mouth 2 times daily as needed for Anxiety. ??? ethinyl estradiol/drospirenone (OCELLA ORAL) Take by mouth. No current facility-administered medications for this visit. Allergies: Allergies Allergen Reactions ??? Perphenazine CIS - breathing difficulty Review of Systems: - General: Feels well. - Skin: No other skin concerns. Examination: - Constitutional: Patient was alert, well-appearing and in no noticeable distress. - Skin: Skin examination of the scalp, face, ears, neck, back, chest, axillae, abdomen, right and left upper extremities, right and left lower extremities, hands, feet was normal with the exception of the findings listed below. Genitalia not examined. 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 - Patients in whom no trigger or underlying disorder is identified, there is a rate of spontaneous remission at one year of approximately 30 to 50 percent. However, 30% of patients persists beyond 5 years. - If not improving at next visit, will consider labs: CBC, CMP, ESR, CRP, TSH, Free T4, thyroid peroxidase antibody, thyroglobulin antibody, H. pylori serology, antimicrosomal antibodies, CHERYLE, Rheumatoid factor, C3, C4, C1q, complement total, total tryptase. - Recommend increasing Cetirizine (Zyrtec) 10mg daily BID for two weeks, may increase to 20mg or 30 mg BID as tolerated if not improving - May continue hydroxyzine q6h prn, benadryl qhs if not overly sedating - Will consider Alexia 180mg BID if not improving with Zyrtec. - Referral to Allergy for further evaluation - Recommend pt keep a food diary in the meantime RTC: 4-6 weeks for follow-up urticaria The following photos were obtained with patient consent: Note initiated by ROSA Kang. I performed the services which were documented by the scribe, and I agree with the accuracy of the documentation in this encounter. Glory Weinstein MD Reviewed and signed by Glory Weinstein MD Resident in Dermatology [facility] Patient seen in conjunction with staff veneer grader: Kellie Hearn MD Section of Dermatology [facility] Kellie Hearn MD - 02/15/2020 9:30 AM EDT I directly supervised Dr. Weinstein in the care of this patient. I saw and evaluated this patient with Dr. Weinstein. She presented the history and physical exam details to me, then we saw the patient together and I confirmed these findings. I agree with details aswritten. My physical examination confirms Dr. Weinstein's findings. The assessment and plan were formulated in discussion with me at the time of visit and I agree with them as documented. KELLIE HEARN MD FAAD Staff Physician documented in this encounter Plan of Treatment Scheduled Referrals Name Type Priority Associated Diagnoses Order S chedule Referral to Outpatient Referral Routine Chronic urticaria Ord ered: Allergy 02/15/2020 documented as of this encounter Visit Diagnoses Diagnosis Chronic urticaria Other specified urticaria documented in this encounter Care Teams Gusset Maker Relationship Specialty Start Date End Date Sania Lebron APRN PCP - General 12/08/12 07/19/21 [address] [place] [address] documented as of this encounter
--- OUTSIDE RECORDS SUMMARY | 2022-04-28 13:56 | XMS_ITS | Encounter Summary ---
:1970 Author Organization [facility] [place] [address] Care Team Providers Name Role Phone Sania Lebron APRN Primary Care Provider Encounter Details Date Type Department Care Team Description 04/05/2020 Orders Only Dermatology at [facility] Glory Weinstein MD [address] [facility] [place] [phone] [facility]-DERMATOLOGY [phone] [place], [place] [address] ( rk) Social History Tobacco Use Types Packs/Day Years Used Date Never Smoker Smokeless Tobacco: Never Used Sex Assigned at Date Recorded Not on file documented as of this encounter Plan of Treatment Not on filedocumented as of this encounter Visit Diagnoses Not on filedocumented in this encounter Care Teams Trim Machine Adjuster Relationship Specialty Start Date End Date Sania Lebron APRN PCP - General 12/08/12 07/19/21 [address] [place] [address] documented as of this encounter
--- OUTSIDE RECORDS SUMMARY | 2022-04-28 13:56 | XMS_ITS | Encounter Summary ---
:1970 Author Organization [place] [address] Care Team Providers Name Role Phone Sania Lebron APRN Primary Care Provider Encounter Details Date Type Department Care Team Description 06/07/2020 Telephone Dermatology at [facility] Ayana Gonzáles MD [address] [place] [address] [facility] [facility]-DERMATOLOGY [phone] [place], [place] [address] (Wo rk) Social History Tobacco Use Types Packs/Day Years Used Date Never Smoker Smokeless Tobacco: Never Used Sex Assigned at Date Recorded Not on file documented as of this encounter Miscellaneous Notes Telephone Encounter - Shayna Gan LPN - 06/07/2020 9:52 AM Jean Pierre: called pt I reached out to Sun on her cell #. We spoke about her chronic urticaria. She was having a flare last week and then again for the past few days. She is very itchy on the arms, hands, chest trunk in themorning and by the afternoon into the evening she has it all over. She continues all the same med's except for the Doxepin. She is looking to see if there is anyway possible to try the Xolair injection? She has a co worker that has had similar issues and got the injection in allergy and had relief. Telephone Encounter - Mitul Dixon LNA - 06/07/2020 8:16 AM EDT Asking for a return call today regarding her [employer] message that was sent on 06/01/2020. Please use the cell phone or work number to reach out to Sun. documented in this encounter Plan of Treatment Not on filedocumented as of this encounter Visit Diagnoses Not on filedocumented in this encounter Care Teams Interlibrary Loan Services Librarian Relationship Specialty Start Date End Date Sania Lebron APRN PCP - General 12/08/12 07/19/21 [address] [place] [address] documented as of this encounter
--- OUTSIDE RECORDS SUMMARY | 2022-04-28 13:56 | XMS_ITS | Encounter Summary ---
:1970 Author Organization [facility] [place] [address] Care Team Providers Name Role Phone Olivia Bull MD Primary Care Provider Encounter Details Date Type Department Care Team Description 07/04/2010 [facility], [facility] [place] [address] ENDOCRINOLOGY DEPT. [phone] [place], [place] [address] (Wo rk) Social History Tobacco Use Types Packs/Day Years Used Date Never Assessed Sex Assigned at Date Recorded Not on file documented as of this encounter Plan of Treatment Not on filedocumented as of this encounter Procedures Procedure Name Priority Date/Time Associated Diagnosis Comme nts VITAMIN D, Routine 07/04/2010 2:58 PM Results f or this 25-HYDROXY EDT procedure are i n the results section. documented in this encounter Results VITAMIN D 25 HYDROXY (07/04/2010 2:58 PM EDT) P athologist Signature 25-Hydroxy D2 <4.0 ng/mL [facility] Comment: Test Performed by: [facility] [address], [place] [address] Certified Recreational Therapist: Nayely Myers, Ph. D. 25-Hydroxy D3 44 ng/mL [facility] Comment: Test Performed by: [facility] [place] [address] Certified Recreational Therapist: Nayely Myers, Ph. D. 25-OH Vit D Total 44 ng/mL [facility] Comment: -- REFERENCE VALUE -- 25-HYDROXY D TOTAL (D2+D3) Optimum levels in the normal population are 25-80 Test Performed by: [place] [address] Certified Recreational Therapist: Nayely Myers, Ph. D. Specimen Anatomical Collection Method Collection Time Receive d Time (Source) Location / / Volume Laterality Blood specimen 07/04/2010 2:58 PM 010 4:13 (specimen) EDT PM EDT Emeka Marquez III, MD CHEMISTRY ORDERABLES Performing Organization Address City/State/[place] [address] [place] [place] documented in this encounter Visit Diagnoses Not on filedocumented in this encounter Care Teams Senior Gl Accountant Relationship Specialty Start Date End Date Olivia Bull MD PCP - General 08/08/10 12/07/12 Jona JONES [address] [place] [address] documented as of this encounter
--- OUTSIDE RECORDS SUMMARY | 2022-04-28 13:56 | XMS_ITS | Encounter Summary ---
:1970 Author Organization [facility] [place] [address] Care Team Providers Name Role Phone Sania Lebron APRN Primary Care Provider Encounter Details Date Type Department Care Team Description 03/09/2020 Telephone Dermatology at [facility] Glory Weinstein MD [address] [facility] [place] [address] [facility] [phone] [place], [place] [address] (Wo rk) Social History Tobacco Use Types Packs/Day Years Used Date Never Smoker Smokeless Tobacco: Never Used Sex Assigned at Date Recorded Not on file documented as of this encounter Miscellaneous Notes Telephone Encounter - Glory Weinstein MD - 04/05/2020 2:18 PM EDT Patient's call returned. Please see telephone note addended to 03/09 encounter. Thanks. Telephone Encounter - Glory Weinstein MD - 04/05/2020 1:51 PM EDT Patient's call returned. 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 Results of recent biopsy discussed with patient. Telephone Encounter - Sabrina Beltran - 04/05/2020 1:21 PM EDT Sun called again and stated that she has still not heard from Dr Weinstein in regards to the flare she is currently having. Please call her cell phone [place] to discuss. Telephone Encounter - Sabrina Beltran - 04/05/2020 11:46 AM EDT Sun Lopez called again this morning stating that she had not heard back from Dr Weinstein. I toldher an urgent message was sent to the doctor, and per Nayely Weinstein was paged to give the patient a call. Telephone Encounter - Glory Weinstein MD - 03/11/2020 5:43 PM EDT Returned patient's call. Patient seen in Allergy. Notes flare of hives particularly with heat from lab coat at work. Started on levocetirizine due to oversedation from cetirizine. Patient has follow-up scheduled for early March and can consider skin biopsy at that time. Telephone Encounter - Glory Weinstein MD - 03/09/2020 2:01 PM EDT Attempted to return patient's call at requested number. Received message that call could not be completed at dialed. Telephone Encounter - Pao Jain - 03/09/2020 9:19 AM EDT Patient Sun Lopez called stating that she has broken out into hives and is itching a lot. She stayed home from work today. She is taking Xyzal and is wandering if there is anything else she can take or do? Please call her at [phone] home or [phone] cell and you may leave a detailed message if she does not answer. Please call today. Thank you, Joy documented in this encounter Plan of Treatment Not on filedocumented as of this encounter Visit Diagnoses Not on filedocumented in this encounter Care Teams Reconstructive Dentist Relationship Specialty Start Date End Date Sania Lebron APRN PCP - General 12/08/12 07/19/21 [address] [place] [address] documented as of this encounter
--- OUTSIDE RECORDS SUMMARY | 2022-04-28 13:56 | XMS_ITS | Encounter Summary ---
:1970 Author Organization [facility] Address [address] [place] [address] Care Team Providers Name Role Phone Sania Lebron APRN Primary Care Provider Encounter Details Date Type Department Care Team Description 03/14/2016 Hospital Encounter Mammography at [facility], Visit for screening [address] [facility] SaniaLAUREL lee mammogram [address] [place] [address] [phone] Social History Tobacco Use Types Packs/Day Years [...] Diagnosis Comme nts MAMMO SCREENING CAD Routine 03/14/2016 9:55 AM Visit for pranav cabrera Results for this AND JAS BILATERAL EDT mammogram procedure are in the results section. documented in this encounter Results Mammo Digital Bilateral Screening With CAD and Tomosynthesis (03/14/2016 9:55 AM EDT) Anatomical Region Laterality Modality Breast Bilateral Mammography Specimen (Source) Anatomical Location Collection Method / Collectio n Time Received Time / Laterality Volume Narrative 03/14/2016 11:08 AM EDT BILATERAL MAMMOGRAPHY REASON FOR EXAM: [...] No mammographic evidence of malignancy. RECOMMENDATION: The [employer] and The Society of [...] mammogram documented in this encounter Care Teams Relief Pharmacist Relationship Specialty Start Date End Date Sania Lebron APRN PCP - General 12/08/12 07/19/21 [address] [place] [address] documented as of this encounter
--- OUTSIDE RECORDS SUMMARY | 2022-04-28 13:56 | XMS_ITS | Encounter Summary ---
:1970 Author Organization [facility] [place] [address] Care Team Providers Name Role Phone Sania Lebron APRN Primary Care Provider Reason for Visit Reason Comments Follow-up Encounter Details Date Type Department Care Team Description 04/22/2020 [facility] Usman Daniels MD [address] [place] [address] [facility] [address]-DERMATOLOGY [place], [place] [address] (Wo rk) Social History Tobacco Use Types Packs/Day Years Used Date Never Smoker Smokeless Tobacco: Never Used Sex Assigned at Date Recorded Not on file documented as of this encounter Progress Notes Glory Weinstein MD - 04/22/2020 4:00 PM EDT Images from the original note were not included. DERMATOLOGY - ESTABLISHED PATIENT FOLLOW-UP Date of service: 04/22/2020 Sun Lopez : 1970, 49 y.o. Chief Complaint: Chief Complaint Patient presents with ??? Follow-up HPI: Sun Lopez is a 49 y.o. female last seen by myself on 03/23/2020 for evaluation of chronic urticaria,and was recommended to continue levocetirizine, famotidine, monteleukast and diphenhydramine per allergy. Biopsy was also performed, results below. Ms. Lopez returns today for Urticaria that has been present since October. Since her last appointment, she is on her 3rd and last week of prednisone on 20 mg daily. Much of the rash has resolved on prednisone, but rash is starting to recur around her ankles. Believes that the antihistamine regimen prescribed by allergy was not as effective. Patient denies history of gout. Relevant Skin History: - Okay to leave detailed message with results???yes - Skin cancer (including type):??no Family History: Melanoma: no - Mother had graves disease Social History: - Work as a microbiologist & runs [employer] Medications: Current Outpatient Medications Medication Sig Dispense Refill ??? predniSONE (Deltasone) 20 mg Tablet Take 3 tablets by mouth daily for 7 days, THEN 2 tablets daily for 7 days, THEN 1 tablet daily for 7 days. Take in the morning. 42 tablet 0 ??? levocetirizine (XYZAL) 5 mg Tablet Take by mouth. ??? famotidine (Pepcid) 20 mg Tablet Take 1 tablet by mouth 2 times daily. 30 tablet 12 ??? montelukast (Singulair) 10 mg Tablet Take 1 tablet by mouth nightly. 30 tablet 12 ??? cetirizine (ZyrTEC) 10 mg Tablet Take [...] - Skin: Skin examination of the face, chest, abdomen, right and left upper extremities, right and left lower extremities, hands, and feet was normal with the exception of the findings listed below. Genitalia not examined. - A female nurse was present and on standby during my examination. Diagnosis/Skin findings/Assessment/Plan: #. 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 ??Unfortunately 80-90% of adults with chronic urticaria have no identified cause and remain idiopathic although literature states 35% related to physical urticaria, 5% vasculitic and the remaining 60% either idiopathic, autoimmune or infection related. 50% of patients idiopathic urticaria have spontaneous resolution within 12 months. Given patient history, initially suspected urticaria secondary to heat from shower versus urticaria secondary to sensitization from PPD in hair dye or component of control pills? 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 - Patients in whom no trigger or underlying disorder is identified, there is a rate of spontaneous remission at one year of approximately 30 to 50 percent. However, 30% of patients persists beyond 5 years. - Prior workup with Allergy: tryptase, anti-thyroidperoxidase, TSH WNL. Allergy has signed off. - Prior biopsy (03/23/2020, Left Leg): - Superficial perivascular inflammation with neutrophils, eosinophils, extravasated ??erythrocytes and rare focal karyorrhectic debris, suspicious for urticarial vasculitis; DIF with subtle superficial perivascular immunoreactivity [C3, fibrinogen and various immunoglobulins tested] (see discussion and addendum for details): DISCUSSION Overall, the findings are somewhat subtle, but do cause suspicion for a??subtle or early case of urticarial vasculitis. The findings are not at all those of a developed ?leukocytoclasticvasculitis (LCV). But, regarding urticarial vasculitis ?? compared with typical LCV, the histological??findings tend to be subtle and are easily overlooked [1]...The direct immunofluorescence (DIF) studies have subtle features (see addendum for details), which can be artifactual and nonspecific. But, somewhat similar findings ??have been documented in some cases of hypocomplementemic urticarial vasculitis [2]. The possibility of hypocomplementemic urticarial vasculitis is best evaluated clinically and with the aid of serologic studies, when indicated. - Previously treated with Benadryl at night - Recommended to continue current treatment regimen per Allergy: - Continue Rx: Levocetirizine 10 mg BID - Continue Rx Famotidine 20 mg BID - Continue Rx: Monteleukast 10 mg QHS - Discussed possible treatments for urticarial vasculitis including indomethacin, colchicine, dapsone, omalizumab, hydroxychloroquine. Also discussed presenting patient at [facility] for consensus diagnosis and treatment recommendations. Will plan to present at [facility] Rounds 04/29/2020. - Finish Rx: Prednisone taper - Start Rx: Doxepin 10 mgQHS. Discussed side effects, including drowsiness. RTC: pending discussion at [facility] rounds 04/29/2020 Note initiated by ROSA Jacobson. I performed the services which were documented by the scribe, and I agree with the accuracy of the documentation in this encounter. Glory Weinstein MD Reviewed and signed by: Glory Weinstein MD Resident in Dermatology [facility] Patient seen and evaluated with staff property underwriter: Radha Lau MD Department of Dermatology [facility] Radha Lau MD - 04/22/2020 4:00 PM EDT I directly supervised Dr. Weinstein during this office visit. Dr. Weinstein presented the history and physical exam to me. I then saw and examined this patient with Dr. Weinstein . We reviewed the history and pertinent details and I confirmed the physical findings. I agree with the details of the history and physical exam as documented in Dr. Weinstein's note. Agree with presentation at [facility] prior to consideration of systemic immunosuppressive therapyfor urticarial vasculitis. RADHA LAU MD Staff Physician documented in this encounter Plan of Treatment Not on filedocumented as of this encounter Visit Diagnoses Diagnosis Chronic urticaria Other specified urticaria documented in this encounter Care Teams Die Sinker Relationship Specialty Start Date End Date Sania Lebron APRN PCP - General 12/08/12 07/19/21 [address] [place] [address] documented as of this encounter
--- OUTSIDE RECORDS SUMMARY | 2022-04-28 13:56 | XMS_ITS | Encounter Summary ---
:1970 Author Organization [facility] Address [address] [place] [address] Care Team Providers Name Role Phone Sania Lebron APRN Primary Care Provider Encounter Details Date Type Department Care Team Description 03/28/2017 Hospital Encounter Mammography at [facility] Vi, Encounter for [facility] LAUREL Lui screening mammogram Drive [address] [place] [address] [phone] Social History Tobacco Use Types Packs/Day Years [...] Diagnosis Comme nts MAMMO SCREENING CAD Routine 03/28/2017 8:45 AM Encounter for R esults for this AND ARTUR BILATERAL EDT screening mammogram pr ocedure are in for breast cancer the result s section. documented in this encounter Results Mammo Screen CAD and Artur Bilat (Generic) (03/28/2017 8:45 AM EDT) Anatomical Region Laterality Modality Breast Bilateral Mammography Specimen (Source) Anatomical Location Collection Method / Collectio n Time Received Time / Laterality Volume Narrative 03/28/2017 9:19 AM EDT BILATERAL MAMMOGRAPHY REASON FOR EXAM: [...] No mammographic evidence of malignancy. RECOMMENDATION: The [employer] and The Society of [...] cancer documented in this encounter Care Teams Cut Off Saw Set Up Operator Relationship Specialty Start Date End Date Sania Lebron APRN PCP - General 12/08/12 07/19/21 [address] [place], [place] [id number] documented as of this encounter
--- OUTSIDE RECORDS SUMMARY | 2022-04-28 13:56 | XMS_ITS | Encounter Summary ---
:1970 Author Organization [facility] [place] [address] Care Team Providers Name Role Phone Sania Lebron APRN Primary Care Provider Reason for Visit Reason Comments Establish Care Allergy Testing (Routine) - Specialty Diagnoses / Procedures Referred By Contact Refer red To Contact Allergy Diagnoses Chronic urticaria Glory Weinstein MD [facility] [address] [place] [address] [address] [facility] [place] [address] [place] [address] Referral ID Status Reason Start Date Expiration Date Visits V isits Requested Authorized [id number] Consult, Test 02/15/2020 02/14/2021 [facility] PCP Updated and/or Approved Encounter Details Date Type Department Care Team Description 02/19/2020 Office Visit Allergy at [facility] Raegan Santamaria Chronic idiopathic [facility] [place] [address] ALLERGY DEPT [phone] [place], [place] [address] Social History Tobacco Use Types Packs/Day Years Used Date Never Smoker Smokeless Tobacco: Never Used Sex Assigned at Date Recorded Not on file documented as of this encounter Last Filed Vital Signs Vital Sign Reading Time Taken Comments Blood Pressure 127/88 02/19/2020 10:21 AM EDT Pulse 73 02/19/2020 10:21 AM EDT Temperature - - Respiratory Rate - - Oxygen Saturation 100% 02/19/2020 10:21 AM EDT Inhaled Oxygen Concentration - - Weight 86.2 kg (190 lb) 02/19/2020 10:21 AM EDT Height 165.1 cm (5' 5) 02/19/2020 10:21 AM EDT Body Mass Index 31.62 02/19/2020 10:21 AM EDT documented in this encounter Progress Notes Raegan Santamaria MD - 02/19/2020 10:30 AM EDT Images from the original note were not included. [facility] Section of Allergy and Clinical Immunology Primary Care Provider: Sania Lebron APRN Patient Age: 49 y.o. Patient : 1970 Reason for Evaluation: hives Historian: self Subjective: Patient ID: Sun Lopez is a 49 y.o. female seen for consultation regarding chronic hives since the end of October. She describes itchy welts that come and go on her neck, shoulders, arms, torso, feetand hands. Triggers include heat. She has found oatmeal baths helpful. She takes cetirizine 10 mg daily and then hydroxyzine and Benedryl. Outpatient Medications Marked as Taking for the 02/19/20 encounter (Office Visit) with Raegan Santamaria MD [...] How water baseboard heat +chickens Objective: BP 127/88 Pulse 73 Ht 165.1 cm (5' 5) Wt 86.2 kg (190 lb) SpO2 100% BMI 31.62 kg/m?? No flowsheet data found. 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 Consider cetirizine or another long-acting histamine instead of short-acting antihistamines. I plan to check thyroid function and baseline tryptase. All questions were answered, and patient/parents expressed understanding of the plan. Thank you for the opportunity to participate in the care of your patient. Ongoing follow-up with thepatient's primary care physician is recommended and encouraged. If I can provide any further assistance, please do not hesitate to contact me. Raegan Bailey MD Pest Control Supervisor, Allergy and Clinical Immunology [facility], [place] [address] [email or web address] documented in this encounter Plan of Treatment Not on filedocumented as of this encounter Procedures Procedure Name Priority Date/Time Associated Comments Diagnosis HC THYROID Routine 02/19/2020 11:18 Chronic idiopathic Resul ts for this STIMULATING HORMONE, AM EDT urticaria procedu re are in SERUM the results section. HC PCH CHRONIC Routine 02/19/2020 11:18 Chronic idiopathic Res ults for this UTICARIA INDEX AM EDT urticaria procedure are in the results section. HC THYROID PEROXIDASE Routine 02/19/2020 11:18 Chronic idiopat hic Results for this ANTIBODY AM EDT urticaria procedure are i n the results section. TRYPTASE Routine 02/19/2020 11:18 Results for this AM EDT procedure are i n the results section. documented in this encounter Results Tryptase (02/19/2020 11:18 AM EDT) P athologist Signature Tryptase 9.6 <=11.1 [facility] DEBORAH ng/mL [facility] Comment: Total tryptase concentrations that are p ersistently greater than 20 ng/mL may be consistent with systemic mastocytosis . Specimen Anatomical Collection Method Collection Time Receive d Time (Source) Location / / Volume Laterality Blood specimen Venous Draw / 02/19/2020 11:18 02/19/20 20 1:40 (specimen) Unknown AM EDT PM EDT Resulting Agency Comment Spec In Lab Raegan Bailey MD CHEMISTRY ORDERABLES Performing Organization Address City/State/[place] [address] Thyroid peroxidase antibody (02/19/2020 11:18 AM EDT) P athologist Signature Thyroperox Ab 10 <=34 IU/mL [facility] Specimen Anatomical Collection Method Collection Time Receive d Time (Source) Location / / Volume Laterality Blood specimen 02/19/2020 11:18 0 1:40 (specimen) AM EDT PM EDT Resulting Agency Comment Spec In Lab Raegan Bailey MD IMMUNOLOGY ORDERABLES Performing Organization Address City/[facility]/ZIP Code Phon e Number [address] [facility] [place] (02/19/2020 11:18 AM EDT) athologist Signature TSH 0.81 0.27 - 4.20 [facility] mcIU/mL [facility] Specimen Anatomical Collection Method Collection Time Receive d Time (Source) Location / / Volume Laterality Blood specimen 02/19/2020 11:18 0 (specimen) AM EDT 11:25 AM EDT Resulting Agency Comment Spec In Lab Raegan Bailey MD CHEMISTRY ORDERABLES Performing Organization Address City/[facility] Phon e Number [address] Chronic Urticaria Index (02/19/2020 11:18 AM EDT) athologist Signature CU Index 1.6 <10 [facility] Comment: The CU Index(R) test is the second gener ation Functional Anti-FceR test. ??Patients with a CU Ind ex(R) greater than or equal to 10 have basophil reactive fa ctors in their serum which supports an autoimmune basis for disease. *This test was developed and its performance c haracteristics determined by [employer]. It has n ot been cleared or approved by the U.S. Food and Drug Admin istration. Test Performed by: [facility], Interface [address] [place] [address] Specimen Anatomical Collection Method Collection Time Receive d Time (Source) Location / / Volume Laterality Blood specimen 02/19/2020 11:18 0 (specimen) AM EDT 11:52 AM EDT Resulting Agency Comment Spec In Lab Raegan Bailey MD CHEMISTRY ORDERABLES Performing Organization Address City/State/ZIP Code Phon e Number [place] [phone] documented in this encounter Visit Diagnoses Diagnosis Chronic idiopathic urticaria Idiopathic urticaria documented in this encounter Care Teams Clinical Pharmacy Technician Relationship Specialty Start Date End Date Sania Lebron APRN PCP - General 12/08/12 07/19/21 [address] [place] [address] documented as of this encounter
--- OUTSIDE RECORDS SUMMARY | 2022-04-28 13:56 | XMS_ITS | Encounter Summary ---
:1970 Author Organization [facility] [place] [address] Care Team Providers Name Role Phone Sania Lebron APRN Primary Care Provider Encounter Details Date Type Department Care Team Description 03/09/2020 Telephone Allergy at [facility] [place] [address] Social History Tobacco Use Types Packs/Day Years Used Date Never Smoker Smokeless Tobacco: Never Used Sex Assigned at Date Recorded Not on file documented as of this encounter Miscellaneous Notes Telephone Encounter - Jaymie Ahuja RN - 03/09/2020 11:53 AM EDT Called patient to relay Dr. Mariaelena Bailey's message to go ahead and try 2 Xyzal tabs BID for flair. Patient agreed. documented in this encounter Plan of Treatment Not on filedocumented as of this encounter Visit Diagnoses Not on filedocumented in this encounter Care Teams Freezer Machine Operator Relationship Specialty Start Date End Date Sania Lebron APRN PCP - General 12/08/12 07/19/21 [address] [place] [address] documented as of this encounter
--- OUTSIDE RECORDS SUMMARY | 2022-04-28 13:56 | XMS_ITS | Encounter Summary ---
:1970 Author Organization [facility] [place] [address] Care Team Providers Name Role Phone Sania Lebron APRN Primary Care Provider Encounter Details Date Type Department Care Team Description 03/10/2020 Telephone Allergy at [facility] [place] [address] Social History Tobacco Use Types Packs/Day Years Used Date Never Smoker Smokeless Tobacco: Never Used Sex Assigned at Date Recorded Not on file documented as of this encounter Miscellaneous Notes Telephone Encounter - Wanda Grimaldo RN - 03/10/2020 8:27 AM EDT Sun called today to inquire if there is anything else she can take for her hives as she has had to stay home from work for the past 2 days. Kandi RN had given instruction per Dr. Bailey to increase Xyzal to 2 pills BID. Patient has been doing that for the last day and has still had some breakthrough hives around her neck. She took Benadryl, but that makes her sleepy and she would rather not take that if possible. Scheduled a follow-up visit for patient this afternoon to discuss a plan with Dr. Bailey. documented in this encounter Plan of Treatment Not on filedocumented as of this encounter Visit Diagnoses Not on filedocumented in this encounter Care Teams Jewelry Bench Worker Relationship Specialty Start Date End Date Sania Lebron APRN PCP - General 12/08/12 07/19/21 [address] [place] [address] documented as of this encounter
--- OUTSIDE RECORDS SUMMARY | 2022-04-28 13:57 | XMS_ITS | Encounter Summary ---
:1970 Demographics Home Phone Preferred Language Unknown Marital Status Unknown Samaritan Affiliation Unknown Race Unknown Ethnic Group Unknown Author Organization [facility] Address [address] [place] [address] Care Team Providers Name Role Phone Unavailable Primary Care Provider Unavailable Encounter Details Date Type Department Care Team Description 10/25/2021 Lab Requisition [facility] Outr Resulting Lab, Pathology & Laboratory Provider [facility] [address] [place] [address] Social History Tobacco Use Types Packs/Day Years Used Date Never Assessed Sex Assigned at Date Recorded Not on file documented as of this encounter Plan of Treatment Not on filedocumented as of this encounter Procedures Procedure Name Priority Date/Time Associated Diagnosis Comme nts [facility] Today 10/25/2021 10:21 LAB PCR EST COVID-19 TESTING Routine 10/25/2021 10:21 Results for this EST procedure are i n the results section. documented in this encounter Results COVID-19 TEST [facility] PCR (10/25/2021 10:21 EST) Specimen Swab Performing Organization Address City/State/ZIP Code Phon e Number [facility] [address] [place] [address] SERVICES COVID-19 TESTING (10/25/2021 10:21 EST) COVID-19 rt-PCR Negative Negative [facility] Result Comment: [facility] This test has not been FDA c leared or approved. This test has been authorized by FDA under an EUA for use by authorized laboratories. This test has been authorized only for detection of nucleic acid fro SERVICES m 2019-nCoV, not for any oth er viruses or pathogens. This test is only authorized for the duration of the declaration that circumstances exist justifying the authorization of emergency use of in vitro d iagnostic tests for detectio n and/or diagnosis of 2019-nCoV under section 564(b)(1) of Act, 21 U.S.C ?? 360bbb-3(b) (1), unless the authorization is terminated or revoked sooner. Negative results do not prec lude 2019-nCoV infection and should not be used as the sole basis for treatment or other patient management decisions. Negative results must be combined with clinical observa tions, patient history, and epidemiological informatio n. Performed on the [employer] Fusion instrument Performing Lab [place] [facility] SERVICES Specimen Swab Performing Organization Address City/State/ZIP Code Phon e Number [facility] [address] [place] [address] SERVICES documented in this encounter Visit Diagnoses Not on filedocumented in this encounter
--- OUTSIDE RECORDS SUMMARY | 2022-04-28 13:57 | XMS_ITS | Encounter Summary ---
:1970 Demographics Home Phone Preferred Language Unknown Marital Status Unknown Mu-Ism Affiliation Unknown Race Unknown Ethnic Group Unknown Author Organization [facility] Address [address] [place] [address] Care Team Providers Name Role Phone Unavailable Primary Care Provider Unavailable Encounter Details Date Type Department Care Team Description 04/20/[address] [facility] Outr Resulting Lab, Pathology & Laboratory Provider [facility] [address] [place], [place] [address] Social History Tobacco Use Types Packs/Day Years Used Date Never Assessed Sex Assigned at Date Recorded Not on file documented as of this encounter Plan of Treatment Not on filedocumented as of this encounter Procedures Procedure Name Priority Date/Time Associated Diagnosis Comme nts MEASLES IGG AB Routine 04/20/2021 14:55 Results f or this EDT procedure are i n the results section. RUBELLA IGG Routine 04/20/2021 14:55 Results for this ANTIBODY EDT procedure are i n the results section. HEPATITIS B SURFACE Routine 04/20/2021 14:55 Resu lts for this ANTIBODY EDT procedure are i n the results section. VARICELLA IGG Routine 04/20/2021 14:55 Results fo r this ANTIBODY EDT procedure are i n the results section. MUMPS ANTIBODY IGG Routine 04/20/2021 14:55 Resul ts for this EDT procedure are i n the results section. documented in this encounter Results HEPATITIS B SURFACE ANTIBODY (04/20/2021 14:55 EDT) Hep B Surface Ab, 613.0 See Note [facility] Quantitative Comment: mIU/mL [facility] Reference Range for Hep B Surface Ab, Quant: SERVICES Positive: >= 10.0 mIU/mL Negative: ??< 10.0 mIU/mL Patient is presumed to be immune to infection with Hep atitis B Virus. Hep B Surface Ab, Positive See Note [facility] Qualitative Comment: [facility] Reference Range for Hep B Surface Ab, Qual: SERVICES Unvaccinated: ??Negative Vaccinated: ??Positive Specimen Blood - Venous blood (substance) Performing Organization Address City/State/[facility] Code Phon e Number [facility] [address] [place] [address] SERVICES MEASLES IGG AB (04/20/2021 14:55 EDT) Measles IgG Ab NegativeComment: See Note [facility] Absence of detectable LABORATORY SERVICES measles virus IgG antibodies. A negative result generally indicates that the patient is susceptible to measles. Specimen Blood - Venous blood (substance) Performing Organization Address City/State/ZIP Code Phon e Number [facility] [address] [place] [address] SERVICES VARICELLA IGG ANTIBODY (04/20/2021 14:55 EDT) Varicella IgG Ab PositiveComment: See Note [facility] Presence of LABORATORY SERVICES detectable Varicella Zoster virus IgG antibodies. Specimen Blood - Venous blood (substance) Performing Organization Address City/[facility]/ZIP Code Phon e Number [facility] [address] [place] [address] SERVICES MUMPS ANTIBODY IGG (04/20/2021 14:55 EDT) Mumps Antibody IgG PositiveComment: See Note [facility] Presence of LABORATORY SERVICES detectable mumps virus IgG antibodies. Specimen Blood - Venous blood (substance) Performing Organization Address City/State/ZIP Code Phon e Number [facility] [address] [place] [address] SERVICES RUBELLA IGG ANTIBODY (04/20/2021 14:55 EDT) Rubella IgG Ab PositiveComment: See Note [facility] Positive for IgG LABORATORY SERVICES antibodies to Rubella virus. Specimen Blood - Venous blood (substance) Performing Organization Address City/[facility]/ZIP Code Phon e Number [facility] [address] [place] [address] SERVICES documented in this encounter Visit Diagnoses Not on filedocumented in this encounter
--- OUTSIDE RECORDS SUMMARY | 2022-04-28 13:57 | XMS_ITS | Encounter Summary ---
:1970 Demographics Home Phone Preferred Language Unknown Marital Status Unknown Anglican Affiliation Unknown Race Unknown Ethnic Group Unknown Author Organization [facility] Address [address] [place] [address] Care Team Providers Name Role Phone Unavailable Primary Care Provider Unavailable Encounter Details Date Type Department Care Team Description 04/21/2021 Lab Requisition [facility] Outr Resulting Lab, Pathology & Laboratory Provider [facility] [address] [place] [address] Social History Tobacco Use Types Packs/Day Years Used Date Never Assessed Sex Assigned at Date Recorded Not on file documented as of this encounter Plan of Treatment Not on filedocumented as of this encounter Procedures Procedure Name Priority Date/Time Associated Comments Diagnosis QUANTIFERON TB GOLD Routine 04/20/2021 14:55 Resu lts for this PLUS EDT procedure are i n the results section. documented in this encounter Results QUANTIFERON TB GOLD PLUS (04/20/2021 14:55 EDT) Quantiferon Negative Negative [facility] Interpretation Comment: [facility] No interferon-gamma response to M. tuberculosis antigens was detected. ??Infection with M. tuberculosis is unlikely. A single negative result does not exclude infection with M. tuberculosis. ??In patien SERVICES ts at high risk for M. tuber culosis infection, a second test should be considered in accordance with the 2017 ATS/IDSA/CDC Clinical Practice Guidelines for Diagnosis of Tuberculosis in Adults and Childr en. [Natali BRITTON et. al. Clin. Infect. Dis. 2017:64 ( 2) ??: 111-115]. Results were obtained with the Qiagen QuantiFERON TB G old Plus CONNIE. TB1 Ag minus Nil 0.01 IU/ml [facility] TB2 Ag minus Nil 0.00 IU/mL [facility] SERVICES Specimen Blood - Venous blood (substance) Narrative [facility] - 04/24/2021 14:30 EDT Results were obtained with the Qiagen Qu antiFERON-TB Gold Plus CONNIE. Performing Organization Address City/State/ZIP Code Phon e Number [facility] [address] [place] [address] SERVICES documented in this encounter Visit Diagnoses Not on filedocumented in this encounter
--- OUTSIDE RECORDS SUMMARY | 2022-04-28 13:57 | XMS_ITS ---
:1970 Author Care Team Providers Name Role Phone DR. ALEXY FORREST Primary Care Provider [phone] DR. ALEXY FORREST Referring Provider [phone] TAI BAUER MD Primary Care Provider Unavailable CASI KAPADIA Primary Care Provider [phone] CASI KAPADIA Referring Provider [phone] Allergies None recorded. Medications None recorded. Problems None recorded. Procedures None recorded. Results Lab Results None recorded. Past Encounters 02/01/2021 Casi Kapadia RN: [address], [place] [address] Social History None recorded. Vaccine List Vaccine Type COVID-19, mRNA, LNP-S, PF, 100 mcg/0.5 m L dose (Moderna) 09/21/2020 10/19/2020 Plan of Care Reminders Provider Appointments None recorded. ? ? Lab None recorded. ? ? Referral None recorded. ? ? Procedures None recorded. ? ? Surgeries None recorded. ? ? Imaging None recorded. ? ? Vitals None recorded.
--- OUTSIDE RECORDS SUMMARY | 2022-04-28 13:57 | XMS_ITS | Encounter Summary ---
:1970 Demographics Home Phone Preferred Language Unknown Marital Status Unknown Judaism Affiliation Unknown Race Unknown Ethnic Group Unknown Author Organization [facility] Address [address] [place] [address] Care Team Providers Name Role Phone Unavailable Primary Care Provider Unavailable Encounter Details Date Type Department Care Team Description 07/11/2021 Lab Requisition [facility] Outr Resulting Lab, Pathology & Laboratory Provider [facility] [address] [place] [address] Social History Tobacco Use Types Packs/Day Years Used Date Never Assessed Sex Assigned at Date Recorded Not on file documented as of this encounter Plan of Treatment Not on filedocumented as of this encounter Procedures Procedure Name Priority Date/Time Associated Diagnosis Comme nts COVID-19 TEST [facility] Today 07/11/2021 10:02 LAB PCR EDT COVID-19 TESTING Routine 07/11/2021 10:02 Results for this EDT procedure are i n the results section. documented in this encounter Results COVID-19 TEST [facility] PCR (07/11/2021 10:02 EDT) Specimen Swab - Entire nasopharynx (body structur e) Performing Organization Address City/State/ZIP Code Phon e Number [facility] [address] [place] [address] SERVICES COVID-19 TESTING (07/11/2021 10:02 EDT) COVID-19 rt-PCR Negative Negative [facility] Result Comment: [facility] This test has not been FDA [...] and epidemiological informatio n. Performed on the [employer] Fusion instrument Performing Lab [place] [facility] SERVICES Specimen Swab Performing Organization Address City/State/ZIP Code Phon e Number [facility] [address] [place] [phone] SERVICES documented in this encounter Visit Diagnoses Not on filedocumented in this encounter
[2022-04-29 20:54] LABS: COVID-19 RT-PCR UVMMC Result Negative (Negative)
== END 2022-04-28 13:29 | disposition home or self-care (01) ==
LOC: LBN 13:28
PROVIDERS: PCP Family Medicine; Visit Provider Nurse Practitioner Family
DX: Z20.822 Contact with and (suspected) exposure to COVID-19 (principal); J02.9 Acute pharyngitis, unspecified; J06.9 Acute upper respiratory infection, unspecified
CPT/HCPCS: 87635; U0003; 87070

== ENCOUNTER 2022-08-16 08:25 | Outpatient (REF) | payer OTHER, SELFPAY ==
[2022-08-16 07:44] LABS: Anion Gap 6.1 mmol/L (3-11); BUN 14 mg/dL (7-18); CO2 28.9 mmol/L (21.0-32.0); CREATININE 0.9 mg/dL (0.55-1.02); Chloride 101 mmol/L (98-107); Estimated GFR 78.37 (mL/min/1.73m2); Glucose 105 mg/dL (74-106); Potassium 3.9 mmol/L (3.5-5.1); Sodium 136 mmol/L (136-145)
[2022-08-16 07:56] LABS: Calculated LDL 155 mg/dL (<100); Cholesterol 228 mg/dL (<200); HDL Cholesterol 47 mg/dL (40-60); Triglyceride 134 mg/dL (<150)
== END 2022-08-16 08:26 | disposition home or self-care (01) ==
LOC: LBO 08:25
PROVIDERS: PCP Family Medicine; Visit Provider Family Medicine
DX: I10 Essential (primary) hypertension (principal); Z13.220 Encounter for screening for lipoid disorders
CPT/HCPCS: 36415; 80048; 80061

== ENCOUNTER 2022-11-26 09:06 | Outpatient (REF) | payer OTHER, SELFPAY ==
[2022-11-26 09:25] LABS: Anion Gap 6.4 mmol/L (3-11); BUN 10 mg/dL (7-18); CO2 29.6 mmol/L (21.0-32.0); CREATININE 0.8 mg/dL (0.55-1.02); Calcium 9.2 mg/dL (8.5-10.1); Chloride 101 mmol/L (98-107); Estimated GFR 89.71 (mL/min/1.73m2); Glucose 110 mg/dL (74-106); Potassium 3.5 mmol/L (3.5-5.1); Sodium 137 mmol/L (136-145)
== END 2022-11-26 09:07 | disposition home or self-care (01) ==
LOC: LBN 09:06
PROVIDERS: PCP Family Medicine; Visit Provider Family Medicine
DX: I10 Essential (primary) hypertension (principal)
CPT/HCPCS: 80048

== ENCOUNTER 2022-12-21 08:54 | Day surgery (SDC) | payer OTHER, SELFPAY ==
--- NOTE | 2022-12-20 08:33 | COLE_ITS ---
Date of service: 12/21/22 Time of Service: 11:00 Colonoscopy Report Date of procedure: 12/21/22 Pre-op diagnosis general: CRC screen Post-op diagnosis procedure note: other (rectal polyp) Surgeon: Chloe Prado Anesthesia Type: General:No Airway Estimated blood loss (mL): 11 Pathology: other Complications: None Disposition: same day Prep: Miralax/Dulcolax Retraction Time: 11 Procedure Description: After informed consent was obtained the patient was taken to the procedure room and placed in a left decubitous position. Monitors were applied and a time out was done. The patients name, date of , procedure, allergies to medications and metal in their body was reviewed. The patient was then sedated. Once sedated and comfortable a rectal exam was done. External exam was normal. Internal exam revealed a normal sphincter tone and no palpable masses. The scope was then introduced and retrofelexed. no internal hemorrhoids were identified. The scope was then advanced to the cecum difficulty. The TI and a ppendiceal orifice were identified. The prep was BBPS 3 in all segments for a total of 9. The scope was then slowly retracted over 11 minutes back into the rectum. There are no diverticula noted. The mucosa is pink and healthy with a normal vascular pattern. She has a 1 cm pedunculated polyp in the rectum. This is removed with a cold snare. All specimen is retrieved and no bleeding is note d.. The scope was removed and the patient was woken up and taken back to Same day surgery in stable condition. The polyp was near to the anal sphincters and so she may experience some bleeding postop, the patient was notified of this. The patient tolerated the procedure well and there were no immediate complications. Follow up: The patient should follow up in years, path pending, unless they d evelop changes in bowel habits or other new gastrointestinal complaints.
--- NOTE | 2022-12-20 08:34 | PDOC.DSDIS_ITS ---
Date of service: 12/21/22 Time of Service: 11:10 Discharge Plan Disposition Patient Disposition: Home Condition: Good Discharge Details Attending Provider: Chloe Prado Primary Care Provider: Michelle Delacruz Home Meds and New Rx's Prescriptions: No Action losartan 25 mg tablet 25 mg PO DAILY potassium chloride 20 mEq tablet,ER particles/crystals 20 meq PO BID mupirocin 2 % ointment 1 applic topical BID gabapentin 100 mg capsule 200 mg PO QHS chlorthalidone 25 mg tablet 12.5 mg PO DAILY norethindrone (contraceptive) [Ortho Micronor] 0.35 mg tablet 0.35 mg PO HS lamotrigine 100 mg Tablet 100 mg PO BID fluoxetine 60 mg Tablet 60 mg PO DAILY Discharge Instructions Additional Instructions: DSU Colonoscopy Post- Op Instructions Instructions for Everyone who is given Anesthesia: For your safety, please do the following for the next twenty-four (24) hours: *Do Not operate a motor vehicle (car, truck, motorcycle, etc.) *Do Not drink alcoholic beverages or use any recreational drugs for the first 24 hours or while taking pain medications. The medications in your body may have a reaction that can be dangerous. *Do Not make any important decisions or sign any important papers. Findings: Adenomatous polyp of the rectum Follow up: My office will send a letter in 2 to 3 weeks time, with the pathology findings, and when we want you to repeat the colonoscopy. Most likely 5 years time. 1. No lifting over 20 pounds or strenuous activity for the first 24 hours after your procedure. After 24 hours there are no restrictions on your activity but you may feel fatigued for a few days. 2. After you arrive home you may have a light meal and return to your normal diet as you can tolerate it without feeling sick to your stomach. 3. You may have a bloated, gaseous feeling in your belly (abdomen) after a colonoscopy. Passing gas and belching will help. Walking or lying down on your left side with your knees flexed may relieve the discomfort. 4. No aspirin or NSAIDs for 5 days. Because of the location of the polyp. The first time you move your bowels you may notice some bleeding. If you are passing clots larger than your hand, please go to the emergency room. Call the office at [phone] (Office) or [phone] (Hospital) right away if you notice any of the following: a.Vomiting of blood or ?coffee ground stools?. b.Rectal bleeding 1Tbsp, blood clots or continuous bleeding. c.Severe belly (abdominal) pain. d.A hard distended belly (abdomen) and an inability to pass gas. 4. Please don?t expect to have a normal BM (bowel movement) for 2-3 days after your procedure. 5. If there are questions regarding the findings of your procedure, please contact your doctor 6. If you are unable to contact your doctor with a problem, contact the hospital at [phone]. 7. Continue all your regular medications unless directed otherwise. I understand the above instructions and have no questions. Signature of Patient or Adult Escort Name of Responsible Adult Escort Signature of Nurse Date/Time Activity:: see above Diet:: see above Discharge Orders Discharge Orders: Discharge Order (Routine); Ordered 12/21/22 Ordered By: Chloe Prado DS: Diagnosis Discharge Diagnosis (1) Colon cancer screening: Status: Acute (2) Rectal polyp: Status: Acute
[2022-12-21 09:20] VITALS: BP 123/93; PULSE 80; RESP 16; TEMP 36.4; O2SAT 100
[2022-12-21] MEDS: Lactated Ringers 1,000 ML 80 ML IV (10:00)
--- NOTE | 2022-12-21 10:03 | W.ANESPRE ---
General Info Date of Service Date Performed: 12/21/22 Height: 5 ft 5 in Weight: 89.9 kg Body Mass Index (BMI): 33.0 Surgical Procedure: Operation Date: 12/21/22 09:50 Proposed Procedure Side Surgeon p Colonoscopy Chloe Prado, DO Actual Procedure Side Surgeon p Colonoscopy Chloe Prado, DO Meds Allergies and Home Medications Allergies Allergy/AdvReac Type Severity Reaction Status Date / Time perphenazine [From Trilafon] Allergy Unknown Trouble Verified 12/21/22 09:31 breathing Home Medication Medication Instructions Recorded fluoxetine 60 mg tablet 60 mg PO DAILY 03/21/22 lamotrigine 100 mg tablet 100 mg PO BID 03/21/22 chlorthalidone 25 mg tablet 12.5 mg PO DAILY 08/16/22 gabapentin 100 mg capsule 200 mg PO QHS 08/16/22 mupirocin 2 % topical ointment 1 applic topical BID 08/16/22 norethindrone (contraceptive) 0.35 0.35 mg PO HS 08/16/22 mg tablet (Ortho Micronor) losartan 25 mg tablet 25 mg PO DAILY 12/13/22 potassium chloride 20 mEq 20 meq PO BID 12/13/22 tablet,extended release(part/cryst) Current Visit Medications: Current Medications Generic Name Dose Route Start Last Admin Trade Name Freq PRN Reason Stop Dose Admin Hyoscyamine Sulfate 0.125 mg 12/21/22 08:35 Hyoscyamine 0.125 Mg Sl/Oral/Chew SL DIRECTED PRN Ringer's Solution 1,000 mls @ 80 mls/hr 12/21/22 06:00 IV 01/19/23 23:59 [facility] IV Miscellaneous Supplies 1 each 12/21/22 06:00 Iv Access IV 01/19/23 23:59 DIRECTED JEFF Ondansetron HCl 4 mg 12/21/22 08:35 Ondansetron 4 Mg/2 Ml Vial IVP Q4H PRN PRN Nausea / Vomiting Sodium Chloride 0 ml 12/21/22 06:00 Normal Saline Flush 10 Ml Syr IV 01/19/23 23:59 PRN PRN Sodium Chloride 0 ml 12/21/22 06:00 Normal Saline 10 Ml Vial IJ 01/19/23 23:59 DIRECTED PRN Sterile Water 0 ml 12/21/22 06:00 Water,Injection,Sterile 10 Ml Vial IJ 01/19/23 23:59 DIRECTED PRN PFSH Active Problems Active Problems: Problem Status Onset Code Colon cancer screening Z12.11 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 Panic attack F41.0 Insomnia G47.00 Anxiety and depression F41.9, F32.A Medical History Medical History Metrorrhagia Surgical History Surgical History History of appendectomy (~1980) History of tonsillectomy (~1984) Tobacco Smoking/Tobacco Use Status: Never Alcohol Alcohol Intake: never Substance Use Substance use: Never Substance use type: does not use Vital Signs and Lab Results Vital Signs Most Recent Vital Signs in EMR: Most Recent Vital Signs Temp Pulse Resp BP Pulse Ox 36.4 C L 80 16 123/93 H 100 12/21/22 09:20 12/21/22 09:20 12/21/22 09:20 12/21/22 09:20 12/21/22 09:20 Point of Care Results Point of Care Results: POC- Test(urine) Negative 12/21/22 09:55 Lab Results Blood Type / Crossmatch: No Data to Display Complete Blood Count: No Data to Display Complete Metabolic Panel: Sodium 137 mmol/L (136-145) 11/26/22 07:25 Potassium 3.5 mmol/L (3.5-5.1) 11/26/22 07:25 Chloride 101 mmol/L (98-107) 11/26/22 07:25 Carbon Dioxide 29.6 mmol/L (21.0-32.0) 11/26/22 07:25 BUN 10 mg/dL (7-18) 11/26/22 07:25 Creatinine 0.8 mg/dL (0.55-1.02) 11/26/22 07:25 Est GFR (CKD-EPI 2020) 89.71 (mL/min/1.73m2) 11/26/22 07:25 Calcium 9.2 mg/dL (8.5-10.1) 11/26/22 07:25 Glucose 110 mg/dL (74-106) H 11/26/22 07:25 Liver Function Panel: No Data to Display Coagulation Panel: No Data to Display Cardiac Panel: No Data to Display Arterial Blood Gas: No Data to Display Venous Blood Gas: No Data to Display Pancreas Panel: No Data to Display Thyroid Panel: No Data to Display Infectious Disease: No Data to Display Blood Cultures: No Data to Display Toxicology Panel: No Data to Display Panel: No Data to Display Anesthesia Assessment and Plan Anesthesia History Personal History: No History of Anesthesia Complications Family History: No Family History of Anesthesia Complications Exercise Tolerance Exercise Tolerance: Metabolic Equivalents>4 Pertinent Negatives Pertinent Negatives: No Symptoms of GERD, No Major Cardiovascular Symptoms or Complaints and No Major Pulmonary Symptoms or Complaints Cardiac & Pulmonary Exam Cardiac Exam: Normal S1/S2 Heart Sounds Pulmonary Exam: Clear Bilateral Breath Sounds Implantable Cardiac Device Does patient have a Pacemaker or an ICD?: No Airway Exam Known Difficult Airway: No Mallampati Class: 2 Mouth Opening: Normal (> 3cm) Thyromental Distance: Greater than 3 cm Neck Range of Motion: Full ROM Neck Circumference: Normal Teeth Condition: Normal Dentition ASA Classification ASA Score: ASA 2 Emergency Case?: No NPO Status NPO Status: NPO Clears >2 hours, Solids >8 hours Status Status: Negative HCG Anesthesia Plan Resuscitation Status: Full Code Anesthesia Technique: General Anesthesia Airway Planned: Natural Airway Monitors Used: Standard Monitors
[2022-12-21 10:07] VITALS: BMI 33.0
--- NOTE | 2022-12-21 10:50 | BOWEL_PTH ---
PATIENT: Sun Lopez LOC: [facility] U#:[id number] AGE/SX: 52/F ROOM: RE12/21/[address]: Chloe Prado : 1970 BED: DIS: 12/21/2022 SPEC #: [id number] RECD: 12/21/22 13:05 STATUS: ERIN REQ #: [id number] TASIA: 12/21/22 10:[address]: Chloe Prado DEPT: Surgical Specimen RECD BY: Nayely Cristobal ENTERED: 12/21/22 13:06 SP TYPE: Bowel OTHR DR: Michelle Delacruz Tissues: 1 - BIOPSY BOWEL Procedures: GROSS AND MICRO LEVEL 4 Comments: [id number]
[2022-12-21 10:57] VITALS: BP 112/73; PULSE 69; RESP 16; TEMP 36.3; O2SAT 97
[2022-12-21 11:23] VITALS: BP 121/77; PULSE 75; RESP 16; TEMP 37.2; O2SAT 98
--- NOTE | 2022-12-21 13:38 | W.ANESPOSTOP ---
Postoperative Evaluation Date, Time and Location Date Performed: 12/21/22 Time Performed: 11:10 Patient Location: Day Surgery Unit Vital Signs Most Recent Imported Vital Signs: Most Recent Vital Signs Temp Pulse Resp BP Pulse Ox 37.2 C 75 16 121/77 98 12/21/22 11:23 12/21/22 11:23 12/21/22 11:23 12/21/22 11:23 12/21/22 11:23 Pain Score Most Recent Pain Score: Most Recent Pain Score Pain Level 0 12/21/22 11:23 Assessment Mental Status: Awake (Alert & Oriented to Patient Baseline) Airway and Respiratory Function: Patent airway with normal (patient baseline) respiratory exam Cardiovascular Function: Hemodynamically Stable Hydration Status: Adequately Hydrated Nausea & Vomiting: No Nausea or Vomiting Pain: Pt. Denies Any Pain Peripheral Nerve Block: Patient did not receive a nerve block
== END 2022-12-21 12:02 | disposition home or self-care (01) ==
PROVIDERS: PCP Family Medicine; Visit Provider Surgery
PROC: 0DJD8ZZ Inspection of Lower Intestinal Tract, Via Natural or Artificial Opening Endoscopic (ICD-10-PCS; CPT 45378; principal; 2022-12-21 09:45)
DX: Z12.11 Encounter for screening for malignant neoplasm of colon (principal); K62.1 Rectal polyp
CPT/HCPCS: 45385; 81025; 88305; J2704

== ENCOUNTER 2023-01-16 10:41 | Emergency (ER) | payer OTHER, SELFPAY ==
[2023-01-16] VITALS (16 sets, daily range): BP systolic 124–133; BP diastolic 70–86; PULSE 60–72; RESP 13–46; TEMP 36.9–37.1; O2SAT 97–100
--- NOTE | 2023-01-16 10:45 | RT.EKG_ITS ---
APPROVED REPORT Exam: Resting ECG Reason for Exam: chest pain Patient Location: E HR:66 bpm ECG Measurements Heart Rate 66 AXIS DC 163 P -12 QRSd 91 QRS -5 QT 442 T 38 QTc 465 Conclusion Sinus rhythm...normal P axis, V-rate 60- 99 Low voltage, precordial leads...precordial leads <1.0mV Consider anterior infarct...Q >30mS in V2-V5. Sinus. Normal axis. Normal intervals. No STEMI. I have reviewed and interpreted ECG and agree with software generated interpretation.
--- NOTE | 2023-01-16 10:54 | ED.GENADUL_ITS ---
Discharge Plan Disposition Patient Disposition: Home Condition: Improving Discharge Details Clinical Impression: Chest pain Primary Care Provider: Michelle Delacruz ED Provider: Giovanna Agustin Home Meds and New Rx's Prescriptions: New sucralfate [Carafate] 1 gram tablet 1 gm PO QACHS Qty: 14 0RF Continued losartan 25 mg tablet 25 mg PO DAILY potassium chloride 20 mEq tablet,ER particles/crystals 20 meq PO BID mupirocin 2 % ointment 1 applic topical BID Patient Comments: not taking gabapentin 100 mg capsule 200 mg PO QHS chlorthalidone 25 mg tablet 12.5 mg PO DAILY norethindrone (contraceptive) [Ortho Micronor] 0.35 mg tablet 0.35 mg PO HS lamotrigine 100 mg Tablet 100 mg PO BID fluoxetine 60 mg Tablet 60 mg PO DAILY Discharge Instructions Instructions: Chest Pain (ED) Additional Instructions: Your blood tests, EKG and imaging today are reassuring and show no evidence of acute concerning findings. Drink plenty of fluids and get plenty of rest. A prescription for Carafate which can help in times of indigestion or an ulcer has been sent electronically to your pharmacy. Start taking an [id number] Prilosec once daily for the next 2 weeks. An order for an outpatient stress test has been placed. Please contact the radiology department for scheduling of this test. Follow-up with your primary care doctor in 1 week and for referral to general surgery for further evaluation if your symptoms do not improve or worsen for consideration for upper endoscopy. Return to the emergency department with any worsening or new concerning symptoms. Referrals: Nelson Arceo MD [ [facility] STAFF PHYSICIAN] - Discharge Data Discharge Physician: Giovanna Agustin Medical Decision Making 2264 -- 52-year-old female with a history of hypertension, hyperlipidemia, obesity, anxiety depression presents for intermittent left-sided chest pain for the past week. Initially started as anterior chest pain while going for a walk last week. Vitals within normal limits. EKG notes a rate of 66, sinus, normal intervals and no STEMI. She has no chest wall tenderness. Lungs are clear. She has no tearing or ripping sensation to suggest dissection. She has no DVT or PE risk factors and no shortness of breath, tachycardia, hypotension or hypoxia to suggest PE. She has no cough or fever to suggest pneumonia. She has no complaint of burning chest pain, nausea, vomiting or postprandial pain to suggest GERD or PUD. Considering her age and risk factors of hypertension hyperlipidemia, will obtain a cardiac work-up and CTA chest due to her complaint of radiation to her back. 1300 --Labs and imaging reviewed. Normal white blood cell count. Normal electrolytes. Magnesium 1.7 which was repleted. Troponin and lipase within normal limits. CTA chest negative for acute findings. Patient reassessed and she is still complaining of some pain. We will add a lipase and give a dose of Toradol, Carafate, GI cocktail and Pepcid IV and reassess. 1400 --lipase within normal limits. Patient reassessed and she states her pain is resolved and feels comfortable going home. An outpatient stress test was ordered. She was advised to follow-up with her PCP for reevaluation and if symptoms do not improve or worsen and she has unremarkable stress test, can consider outpatient upper endoscopy. A prescription for Carafate sent electronically to her pharmacy. She was advised to start a daily Prilosec. Advised to follow up with the primary care doctor for re-evaluation. Usual and customary return precautions given prior to discharge. Medical Records Medical records reviewed: Yes I reviewed the patient's medical records. Imaging Data Radiologic Study: Radiologist's impression: CT THORAX CTA CLINICAL HISTORY: ? left chest pain, radiating to back. TECHNIQUE:? Imaging Protocol:? Axial CT angiography was performed with multi- slice acquisition and multi-planar and/or 3D reconstructions. CONTRAST MATERIAL:? Intravenous: Omnipaque 350 contrast volume:100 mL COMPARISON:? No exams were available for comparison FINDINGS: Tracheobronchial tree: Patent where visualized. Pulmonary parenchyma: No consolidation or dominant measurable mass. No architectural distortion. Pulmonary Arteries: No evidence of filling defect to suggest pulmonary emboli. Mediastinum and Justine: No dominant adenopathy or fluid collection.? The esophagus is unremarkable.? Visualized thyroid gland: Unremarkable.? Pleura: No effusion or pneumothorax. Heart: The heart is not dilated. No coronary artery calcifications are seen. No pericardial effusion.? Aorta: Thoracic aorta non-dilated. No evidence of dissection. There is cardiac and ascending thoracic aortic motion artifact present. Upper abdomen:? Unremarkable. Soft tissues: Unremarkable.? Bones: Within normal limits for the patient's age. IMPRESSION: 1. No evidence of pulmonary embolism, thoracic aortic dissection or aneurysm.? 2. Findings were discussed with the emergency department at 12:21 p.m. on 01/16/2023. Lab Data Lab results reviewed: Yes I reviewed the patient's lab results. Labs: Laboratory Tests Range/Units 01/16/23 01/16/23 01/16/23 10:52 10:52 10:52 WBC (4.4-10.8) 10^3/uL 8.41 RBC (3.93-5.22) 10^6/uL 4.50 Hgb (11.2-15.7) g/dL 13.0 Hct (36.0-46.0) % 38.3 MCV (80-95) fL 85 MCH (27.0-33.0) pg 28.9 MCHC (32.0-36.0) % 33.9 RDW (11.7-14.6) % 13.2 Plt Count (130-400) 10^3/uL 275 MPV (8.0-11.0) fL 9.5 Immature Gran % 0.2 Neutrophils % 60.7 Lymphocytes % 31.2 Monocytes % 6.1 Eosinophils % 1.7 Basophils % 0.1 Nucleated RBC % (0.0-0.3) % 0.0 Absolute Neutrophils (1.2-6.7) 10^3/uL 5.11 Absolute Lymphocytes (1.2-3.4) 10^3/uL 2.62 Absolute Monocytes (0.1-0.8) 10^3/uL 0.51 Absolute Eosinophils (0.0-0.7) 10^3/uL 0.14 Absolute Basophils (0.0-0.2) 10^3/uL 0.01 Sodium (136-145) mmol/L 140 Potassium (3.5-5.1) mmol/L 3.7 Chloride (98-107) mmol/L 105 Carbon Dioxide (21.0-32.0) mmol/L 27.2 Anion Gap (3-11) mmol/L 7.8 BUN (7-18) mg/dL 9 Creatinine (0.55-1.02) mg/dL 0.8 Est GFR (CKD-EPI 2020) (mL/min/1.73m2) 89.71 Glucose (74-106) mg/dL 103 Calcium (8.5-10.1) mg/dL 9.2 Magnesium (1.8-2.4) mg/dL 1.7 L Total Bilirubin (0.2-1.0) mg/dL 0.3 AST (15-37) U/L 16 ALT (14-59) U/L 24 Alkaline Phosphatase (46-116) U/L 75 Troponin I (<or=60) ng/L < 50 Total Protein (6.4-8.2) g/dL 7.2 Albumin (3.4-5.0) g/dL 3.8 Lipase (16-77) U/L 41 ECG Data Attestation: I personally reviewed and interpreted this ECG (s) as follows: Interpretation: Rate of 66, sinus, low voltage, normal axis, normal intervals, no STEMI. HPI General Mode of arrival: ambulatory . Date/Time Provider Initiated Documentation: 01/16/23 10:53 . Limitations to Documentation: no limitations . Information obtained by: patient . HPI Narrative: Pt is a 52yo F with history of hypertension, hyperlipidemia, anxiety and depression who presents for intermittent chest pain for the past week. Patient states the chest pain first started while going for a slow walk 1 week ago. She states at that time it was across her entire anterior chest and lasted a short while and then resolved. Patient states since then the pain has returned and has been intermittent and mainly in the left side of her chest with occasional radiation to her back. She denies any aggravating or alleviating factors. She states she took Tums last night without relief. She has never had a stress test. She denies any known fever, cough, shortness of breath, nausea, vomiting, dizziness, leg pain or swelling, recent travel, recent surgery, abdominal pain. She has been taking her blood pressure medication as prescribed and did take it this morning. She denies smoking or drug use and admits to rare alcohol use. Denies any recent drugs or alcohol. Related Data Home Medications Medication Instructions Recorded Confirmed fluoxetine 60 mg tablet 60 mg PO DAILY 03/21/22 01/16/23 lamotrigine 100 mg tablet 100 mg PO BID 03/21/22 01/16/23 chlorthalidone 25 mg tablet 12.5 mg PO DAILY 08/16/22 01/16/23 gabapentin 100 mg capsule 200 mg PO QHS 08/16/22 01/16/23 mupirocin 2 % topical ointment 1 applic topical BID 08/16/22 12/21/22 norethindrone (contraceptive) 0.35 0.35 mg PO HS 08/16/22 01/16/23 mg tablet (Ortho Micronor) losartan 25 mg tablet 25 mg PO DAILY 12/13/22 01/16/23 potassium chloride 20 mEq 20 meq PO BID 12/13/22 01/16/23 tablet,extended release(part/cryst) sucralfate 1 gram tablet (Carafate) 1 gm PO QACHS #14 tabs 01/16/23 Previous Rx's Medication Instructions Recorded sucralfate 1 gram tablet (Carafate) 1 gm PO QACHS #14 tabs 01/16/23 Allergies Allergy/AdvReac Type Severity Reaction Status Date / Time perphenazine [From Trilafon] Allergy Unknown Trouble Verified 01/16/23 10:46 breathing General Stated Complaint: Chest Pain LAUREN: 3 Review of Systems All systems reviewed & are unremarkable except as noted in HPI and below Constitutional Constitutional: Reports as per HPI, Denies chills and Denies fever(s) Eyes Eyes: Denies blurry vision ENT Ears, Nose, Mouth, and Throat: Denies dizziness, Denies sore throat and Denies throat swelling Cardiovascular Cardiovascular: Reports chest pain and Denies dyspnea Respiratory Respiratory: Denies cough and Denies dyspnea Gastrointestinal Gastrointestinal: Denies abdominal pain, Denies diarrhea and Denies vomiting Genitourinary Genitourinary: Denies hematuria and Denies dysuria Musculoskeletal Musculoskeletal: Denies back pain and Denies numbness Integumentary/Breasts Skin/Breast: Denies lesions and Denies rash Neurologic Neurologic: Denies dizziness, Denies localized weakness and Denies numbness Allergic/Immunologic Allergic/Immunologic: Denies throat swelling PFSH All Active Problems (Updated 01/16/23 @ 14:19 by Giovanna Agustin DO) Chest pain (Acute) Rectal polyp (Acute) Colon cancer screening (Acute) Trichotillomania (Acute) Panic attack (Acute) Insomnia (Acute) Anxiety and depression (Chronic) Medical History (Updated 01/16/23 @ 14:19 by Giovanna Agustin DO) Metrorrhagia Surgical History History of appendectomy (~1980) History of tonsillectomy (~1984) Social History Smoking/Tobacco Use Status: Never Smoking risk assessment performed?: Yes Alcohol Intake: never Drug use: Never Substance use type: does not use Current gender identity: female Do you feel safe at home: Yes Do you feel safe in your relationship?: Yes Exam Const General: cooperative and no acute distress Orientation: alert, awake and oriented x3 HENMT Head: normal to inspection Face and sinus: normal facial exam Eyes General: appearance normal, both eyes and all related structures Pupils: PERRL EOM: EOM intact bilaterally Neck Neck: normal visual inspection and No submandibular swelling Lymphatic: no lymphadenopathy noted Chest Chest: normal inspection of the chest, normal palpation of entire chest wall and no tenderness Resp Effort & Inspection: normal respiratory effort and able to speak in complete sentences Auscultation: clear to auscultation bilaterally Cardio Rate: regular rate Rhythm: regular rhythm GI Inspection: normal to inspection Palpation: soft, not firm, not rigid and nontender Auscultation: hypoactive bowel sounds Back/Spine/Pelvis Back: no CVA tenderness Thoracic/Lumbar Spine: thoracic and lumbar spine normal to inspection Pelvis: no pain with anterior-posterior compression Skin General skin exam: no rashes or lesions noted Neuro General: patient alert, patient awake and patient oriented x3 Cognition: normal cognition Speech: speech normal Motor: muscle tone normal throughout Sensory Exam: no sensory deficits noted Extrem General: normal to inspection, full ROM, capillary refill normal, no calf tenderness bilaterally and no edema Psych Appearance: grossly normal Mental Status: mental status grossly normal Speech and Movement: speech and movement normal Affect: normal affect Course Vital Signs Vital signs: Vital Signs Temperature 98.4 F 01/16/23 10:47 Pulse 71 01/16/23 10:47 Respiratory Rate 18 01/16/23 10:47 Blood Pressure 129/76 01/16/23 10:47 Pulse Oximetry 98 01/16/23 10:47 Temperature 98.4 F 01/16/23 10:47 Pulse 71 01/16/23 10:47 Respiratory Rate 18 01/16/23 10:47 Respiratory Effort Normal, Non-Labored 01/16/23 10:46 Blood Pressure 129/76 01/16/23 10:47 Pulse Oximetry 98 01/16/23 10:47 Oxygen Delivery Method Room Air 01/16/23 10:47 Oxygen Flow Rate 0 01/16/23 10:47
[2023-01-16 11:06] LABS: Abs Immature Grans 0.02 10^3/uL (0.0-0.06); Absolute Basophil Count 0.01 10^3/uL (0.0-0.2); Absolute Eosinophil Count 0.14 10^3/uL (0.0-0.7); Absolute Lymphocyte Count 2.62 10^3/uL (1.2-3.4); Absolute Monocyte Count 0.51 10^3/uL (0.1-0.8); Absolute Neutrophil Count 5.11 10^3/uL (1.2-6.7); Basophils % 0.1; Eosinophils % 1.7; HCT 38.3 % (36.0-46.0); Immature Grans % 0.2; Lymphocytes % 31.2; MCH 28.9 pg (27.0-33.0); MCHC 33.9 % (32.0-36.0); MCV 85 fL (80-95); MPV 9.5 fL (8.0-11.0); Monocytes % 6.1; Neutrophils % 60.7; Platelet Count 275 10^3/uL (130-400); RDW 13.2 % (11.7-14.6); RDW-SD 40.8 fL; WBC 8.41 10^3/uL (4.4-10.8)
[2023-01-16 11:28] LABS: ALT 24 U/L (14-59); AST 16 U/L (15-37); Albumin 3.8 g/dL (3.4-5.0); Alkaline Phosphatase 75 U/L (46-116); Anion Gap 7.8 mmol/L (3-11); BUN 9 mg/dL (7-18); Bilirubin, Total 0.3 mg/dL (0.2-1.0); CO2 27.2 mmol/L (21.0-32.0); CREATININE 0.8 mg/dL (0.55-1.02); Calcium 9.2 mg/dL (8.5-10.1); Chloride 105 mmol/L (98-107); Estimated GFR 89.71 (mL/min/1.73m2); Glucose 103 mg/dL (74-106); Magnesium 1.7 mg/dL (1.8-2.4); Potassium 3.7 mmol/L (3.5-5.1); Sodium 140 mmol/L (136-145); Total Protein 7.2 g/dL (6.4-8.2)
[2023-01-16 11:30] LABS: Troponin I < 50 ng/L (<or=60)
--- NOTE | 2023-01-16 11:30 | DI.CT_ITS ---
Exam(s) CT THORAX CTA EXAM: CT THORAX CTA CLINICAL HISTORY: left chest pain, radiating to back. TECHNIQUE: Imaging Protocol: Axial CT angiography was performed with multi-slice acquisition and mu lti-planar and/or 3D reconstructions. CONTRAST MATERIAL: Intravenous: Omnipaque 350 contrast volume:100 mL COMPARISON: No exams were available for comparison FINDINGS: Tracheobronchial tree: Patent where visualized. Pulmonary parenchyma: No consolidation or dominant measurable mass. No architectural distortion. Pulmonary Arteries: No evidence of filling defect to suggest pulmonary emboli. Mediastinum and Justine: No dominant adenopathy or fluid collection. The esophagus is unremarkable. Visualized thyroid gland: Unremarkable. Pleura: No effusion or pneumothorax. Heart: The heart is not dilated. No coronary artery calcifications are seen. No pericardial effusion. Aorta: Thoracic aorta non-dilated. No evidence of dissection. There is cardiac and ascending thoracic aortic motion artifact present. Upper abdomen: Unremarkable. Soft tissues: Unremarkable. Bones: Within normal limits for the patient's age. IMPRESSION: 1. No evidence of pulmonary embolism, thoracic aortic dissection or aneurysm. 2. Findings were discussed with the emergency department at 12:21 p.m. on 01/16/2023. RADIATION DOSE DELIVERED: 604.92mGy.cm Total DLP 604.92mGy.cm Total DLP DATA REPOSITORY: All CT scans at this facility are submitted to the National Radiology Data Registry (NRDR) Dose Index Registry (DIR) with the [employer] (A[employer]). RADIATION OPTIMIZATION: All CT scans at this facility use at least one of these dose optimization te chniques: automated exposure control; mA and/or kV adjustment per patient size (includes targeted exa ms where dose is matched to clinical indication); or iterative reconstruction.
[2023-01-16] MEDS: MAGNESIUM SULFATE 1 GM/100 ML BAG IVPB (11:41)
[2023-01-16] MEDS: Omnipaque 350 MG/ML 500 ML BTL-Imaging package 100 ML IJ (11:49)
[2023-01-16] MEDS: Normal Saline - Diluent 50 ML VIAL IJ (12:02)
[2023-01-16] MEDS: Normal Saline Flush 10 ML SYR IVP (12:03)
[2023-01-16] MEDS: ACETAMINOPHEN 1,000 MG/100 ML BTL 400 MG IVPB (12:06)
[2023-01-16] MEDS: Normal Saline 1,000 ML 1000 ML IV (12:07)
--- NOTE | 2023-01-16 12:22 | NUR.NOTE ---
per MD Arceo CT for pt is negative. MD Agustin made aware
[2023-01-16 13:14] LABS: Lipase 41 U/L (16-77)
[2023-01-16] MEDS: Famotidine 20 MG/2 ML VIAL IVP (13:27)
[2023-01-16] MEDS: Ketorolac 30 MG/ML VIAL IVP (13:27)
[2023-01-16] MEDS: Sucralfate 1 GM TAB PO (13:27)
--- NOTE | 2023-01-16 17:16 | NUR.NOTE ---
Nursing Note: Faxed to [facility]: request for regular exercise treadmill stress test/ for chest pain.
== END 2023-01-16 14:27 | disposition home or self-care (01) ==
PROVIDERS: Emergency Provider Physician Assistant; PCP Family Medicine
DX: R07.9 Chest pain, unspecified (principal); F41.9 Anxiety disorder, unspecified; F32.A Depression, unspecified; E83.42 Hypomagnesemia; M54.9 Dorsalgia, unspecified; I10 Essential (primary) hypertension; E78.5 Hyperlipidemia, unspecified
CPT/HCPCS: 36415; 71275; 80053; 81025; 83690; 93005; 96365; 96366; 96375; 99285; 83735; 84484; 85025; 93010; 99284; J0131; J1885; J3475

== ENCOUNTER 2023-01-22 00:51 | Outpatient (CLI) | payer OTHER, SELFPAY ==
--- NOTE | 2023-01-22 | ETT_ITS ---
APPROVED REPORT Exam: Exercise Treadmill Patient Location: Out-Patient Room/Bed: Stress Nurse: Lalitha Dong RN Ordering Provider:ARIE MARIFelipe, Contact Number: [phone] BMI: 33.27 Baseline Rhythm: Sinus Rhythm Indications: Chest pain Medical History Medical History: Anxiety, depression, panic attacks, HTN, HLD, obesity Cardiac Medications: Losartan, potassium chloride, lamotrigine, clorthalidone Allergies: Perphenazine Cardiac Risk Factors: Family hx, HTN, HLD, obesity Previous Cardiac Procedures: None Pretest Chest Pain Characteristics: None Exercise History: Sedentary Physical Disabilities: None Lung Sounds: Clear to auscultation Heart Sounds: Regular Stress Test Details Test: Exercise stress testing was performed using a Lars protocol. Rest Stress HR Resting HR Supine: 61 bpm Max Heart Rate (APMHR): 170 bpm Resting HR Standin bpm Target HR (85% APMHR): 145 bpm Max HR Achieved: 148 bpm % of APMHR: 87 Recovery HR: 90 bpm HR response to stress: Normal HR response to stress BP Resting BP Supine: 126/76 mmHg Resting BP Standin/86 mmHg Max BP: 160/62 mmHg Recovery BP: 138/68 mmHg BP response to stress: Normal blood pressure response to stress. ECG Resting ECG: Sinus Rhythm Ectopy: None Stress ECG: Sinus Tachycardia ST Change: No significant ST segment changes noted Arrhythmia: None Recovery ECG: Sinus Rhythm Recovery ST Change: No significant ST segment changes noted Recovery Arrhythmia: None Clinical Reason for Termination: Target HR Achieved, Dyspnea, Fatigue Stress Symptoms: Dyspnea, General Fatigue Exercise duration: 9 min57 sec Highest Stage Reached: Stage 4: 4.2 mph at 16% grade. Exercise capacity: 11.71 METs Angina Score: None Ley Treadmill Score: 9.2 Rate Pressure Product: [id number] Stress ECG Conclusion 1. The resting electrocardiogram was within normal limits 2. The patient exercised on the Lars protocol and completed a workload of 11.71 METS, stopping due t o fatigue 3. Normal heart rate and blood pressure response to exercise. The patient achieved 87% of predicted heart rate for age 4. There was no electrocardiographic evidence of myocardial ischemia 5. There were no significant dysrhythmias Ley Treadmill Score is 9.2 which is Low risk. Stress Test Summary STAGE Time (mins) Speed (mph) Grade (%) HR BP SpO2 SYMPTOMS METS Supine 61 126/76 Standing 68 112/86 1 3 1.7 10 101 120/68 4.5 2 6 2.5 12 119 138/64 92 Mild dyspnea 7 3 9 3.4 14 133 148/72 90 Mod dyspnea 10 4 12 4.2 16 146 Mod dyspnea 13 1 min recovery 117 156/64 Mod dyspnea 3 min recovery 90 160/62 Dyspnea resolving 6 min recovery 90 138/68 97 Dyspnea resolved
== END 2023-01-22 01:11 ==
LOC: DI 00:51
PROVIDERS: PCP Family Medicine; Visit Provider Physician Assistant
DX: R07.89 Other chest pain (principal)
CPT/HCPCS: 93017

== ENCOUNTER 2023-07-24 13:07 | Outpatient (CLI) | payer OTHER, SELFPAY ==
[2023-07-24 07:28] LABS: Anion Gap 9.6 mmol/L (3-11); BUN 12 mg/dL (7-18); CO2 26.4 mmol/L (21.0-32.0); CREATININE 0.9 mg/dL (0.55-1.02); Calcium 9.3 mg/dL (8.5-10.1); Chloride 101 mmol/L (98-107); Estimated GFR 77.88 (mL/min/1.73m2); Glucose 114 mg/dL (74-106); LDL CHOLESTEROL 153 mg/dL (<100); Potassium 3.9 mmol/L (3.5-5.1); Sodium 137 mmol/L (136-145)
== END 2023-07-24 13:08 | disposition home or self-care (01) ==
LOC: LBO 13:11
PROVIDERS: PCP Family Medicine; Visit Provider Family Medicine
DX: I10 Essential (primary) hypertension (principal)
CPT/HCPCS: 36415; 80048; 83721

== ENCOUNTER 2024-08-27 07:45 | Outpatient (REF) | payer OTHER, SELFPAY ==
[2024-08-27 08:59] LABS: Anion Gap 6.7 mmol/L (3-11); BUN 13 mg/dL (7-18); CO2 31.3 mmol/L (21.0-32.0); Calcium 9.8 mg/dL (8.5-10.1); Calculated LDL 181 mg/dL (<100); Chloride 103 mmol/L (98-107); Cholesterol 256 mg/dL (<200); Estimated GFR 68.21 (mL/min/1.73m2); Glucose 113 mg/dL (74-106); HDL Cholesterol 51 mg/dL (40-60); Potassium 3.8 mmol/L (3.5-5.1); Sodium 141 mmol/L (136-145); Triglyceride 122 mg/dL (<150)
== END 2024-08-27 07:46 | disposition home or self-care (01) ==
LOC: LBN 07:45
PROVIDERS: PCP Family Medicine; Visit Provider Family Medicine
DX: I10 Essential (primary) hypertension (principal); Z13.220 Encounter for screening for lipoid disorders; R73.09 Other abnormal glucose
CPT/HCPCS: 36415; 80048; 80061; 83036

== ENCOUNTER 2024-12-03 22:28 | Outpatient (REF) | payer OTHER, SELFPAY ==
[2024-12-03 08:01] LABS: Hemoglobin A1C 5.6 % (<5.7)
[2024-12-03 08:07] LABS: LDL CHOLESTEROL 141 mg/dL (<100)
== END 2024-12-03 22:29 | disposition home or self-care (01) ==
LOC: LBO 22:28
PROVIDERS: PCP Family Medicine; Visit Provider Family Medicine
DX: R73.09 Other abnormal glucose (principal); E78.5 Hyperlipidemia, unspecified
CPT/HCPCS: 36415; 83721; 83036

== ENCOUNTER 2025-01-19 18:30 | Outpatient (REF) | payer OTHER, SELFPAY | END 2025-01-19 18:31 | disposition home or self-care (01) | LOC: LBN 18:30 | PROVIDERS: PCP Family Medicine; Visit Provider Family Medicine | DX: N39.0 Urinary tract infection, site not specified (principal) | CPT/HCPCS: 87086; 87186 ==

== ENCOUNTER 2025-04-15 08:57 | Outpatient (CLI) | payer OTHER, SELFPAY ==
[2025-04-15 09:03] LABS: Hemoglobin A1C 5.2 % (<5.7)
[2025-04-15 09:28] LABS: Anion Gap 3.4 mmol/L (3-11); BUN 12 mg/dL (7-18); CO2 30.6 mmol/L (21.0-32.0); Calcium 9.4 mg/dL (8.5-10.1); Chloride 105 mmol/L (98-107); Estimated GFR 88.60 (mL/min/1.73m2); Glucose 89 mg/dL (74-106); Potassium 4.4 mmol/L (3.5-5.1); Sodium 139 mmol/L (136-145)
== END 2025-04-15 08:58 | disposition home or self-care (01) ==
LOC: LBO 08:57
PROVIDERS: PCP Family Medicine; Visit Provider Family Medicine
DX: R73.09 Other abnormal glucose (principal); I10 Essential (primary) hypertension
CPT/HCPCS: 36415; 80048; 83036